=== PATIENT | male | born 1975 | race Caucasian/White ===

== ENCOUNTER 2016-03-03 18:04 | Inpatient (IN) | payer OTHER ==
[2016-03-03] MEDS ORDERED: ONDANSETRON 4 MG/2 ML VIAL IVP STA (19:46)
[2016-03-03] MEDS ORDERED: SODIUM CHLORIDE 0.9% 500 ML IV STA (19:46)
[2016-03-03] MEDS ORDERED: PANTOPRAZOLE 40 MG/10 ML VIAL IVP STA (19:46)
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
[2016-03-03 20:10] LABS: Basophils % (A) 1 %; CHCM 33.8; Eosinophils # (A) 0.1 k/uL (0-0.7); Eosinophils % (A) 4 %; HCT 42.7 % (39.0-53.0); HDW 2.34; HGB 14.1 gm/dL (13.0-17.5); Luc # (Auto) 0.08; Luc % (Auto) 2; Lymphocytes # (A) 1.9 k/uL (1.0-4.8); Lymphocytes % (A) 58 %; MCH 33.4 pg (25.0-35.0); MCHC 33.1 g/dL (31.0-37.0); MCV 100.9 fL (80.0-100.0); Mean Platelet Volume 7.9; Monocytes # (A) 0.2 k/uL (0-1.0); Monocytes % (A) 6 %; Neutrophils % (A) 29 %; RBC 4.23 m/uL (4.30-5.90); RDW 13.3 % (11.5-15.5); WBC 3.3 k/uL (3.8-10.6); WBC (Perox) 3.29
[2016-03-03 20:15] LABS: ALT 221 U/L (21-72); AST 274 U/L (17-59); Alkaline Phosphatase 130 U/L (38-126); Amylase 99 U/L (30-110); Anion Gap 17 mmol/L; Blood Urea Nitrogen <2 mg/dL (9-20); Calcium 8.4 mg/dL (8.4-10.2); Carbon Dioxide 27 mmol/L (22-30); Chloride 105 mmol/L (98-107); Glucose 97 mg/dL (74-99); Non-African American GFR(MDRD) >60 (>60 ml/min/1.73 sqM); Partial Thromboplastin Time 25.6 sec (22.0-30.0); Potassium 3.8 mmol/L (3.5-5.1); Prothrombin Time 9.9 sec (9.0-12.0); Sodium 149 mmol/L (137-145); Total Bilirubin 0.6 mg/dL (0.2-1.3); Total Protein 7.2 g/dL (6.3-8.2)
[2016-03-03] MEDS ORDERED: METOCLOPRAMIDE 5 MG/ML 2 ML VIAL IVP STA (20:18)
[2016-03-03 20:27] LABS: Alcohol 489 mg/dL
[2016-03-03 20:29] LABS: Creatine Kinase 102 U/L (55-170)
--- NOTE | 2016-03-03 20:29 | XR ---
EXAMINATION TYPE: XR KUB DATE OF EXAM: 03/03/2016 8:03 PM COMPARISON: NONE INDICATION: Abdomen pain TECHNIQUE: Single view abdomen upright view FINDINGS: No suspicious air-fluid levels or differential air-fluid levels are present. Psoas margins are normal. No organomegaly is present. No free air is under the diaphragm. Some nonspecific small bowel gas is present IMPRESSION: 1. Nonspecific abdomen.
--- NOTE | 2016-03-03 20:30 | XR ---
EXAMINATION TYPE: XR chest 2V DATE OF EXAM: 03/03/2016 8:03 PM COMPARISON: 11/14/2015 INDICATION: Abdomen pain, chest pressure TECHNIQUE: Frontal and lateral views of the chest are obtained. FINDINGS: The heart size is normal. The pulmonary vasculature is normal. The lungs are clear. There is hyperinflation. IMPRESSION: 1. Correlate for COPD.
[2016-03-03 20:41] LABS: Creatine Kinase MB 0.4 ng/mL (0.0-2.4); Troponin I <0.012 ng/mL (0.000-0.034)
[2016-03-03] MEDS ORDERED: NALOXONE 0.4 MG/ML 1 ML VIAL IV PRN (21:23)
[2016-03-03] MEDS ORDERED: ONDANSETRON 4 MG/2 ML VIAL IVP PRN (21:23)
[2016-03-03] MEDS ORDERED: THIAMINE 100 MG/ML 2 ML VIAL IM STA (21:26)
[2016-03-03] MEDS ORDERED: LORazepam 2 MG/ML SYRINGE IV PRN ×2 (21:26)
[2016-03-03] MEDS: THIAMINE 100 MG TAB PO SCH (21:41)
[2016-03-03] MEDS: HYDROmorphone 1 MG/ML 1 ML SYRINGE IV PRN (22:06)
[2016-03-04] MEDS: LORazepam 2 MG/ML SYRINGE IV PRN ×7 (00:32→21:47)
[2016-03-04] MEDS: HYDROmorphone 1 MG/ML 1 ML SYRINGE IV PRN ×6 (01:50→21:52)
[2016-03-04 02:17] VITALS: BMI 18.2
[2016-03-04] MEDS: SODIUM CHLORIDE 0.9% 1,000 ML IV SCH ×2 (03:27→18:07)
[2016-03-04 07:46] LABS: Amylase 51 U/L (30-110)
[2016-03-04] MEDS: DIAZEPAM 5 MG TAB PO SCH ×4 (07:51→21:48)
[2016-03-04] MEDS: PANTOPRAZOLE 40 MG/10 ML VIAL IV SCH (09:38)
[2016-03-04] MEDS: THIAMINE 100 MG TAB PO SCH ×2 (12:27→16:30)
[2016-03-04] MEDS: MULTIVITAMINS, THERA 1 EACH TAB PO SCH (12:28)
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
[2016-03-04] MEDS: METOPROLOL TARTRATE 12.5 MG TAB PO SCH ×2 (16:40→22:52)
[2016-03-04] MEDS: NICOTINE 21MG/24HR PATCH TRANSDERM SCH (16:40)
[2016-03-04 21:46] LABS: Appearance,Urine Clear (Clear); Bilirubin,Urine Negative (Negative); Glucose,Urine (UA) Negative (Negative); Ketones,Urine Negative (Negative); Leukocyte Esterase,Urine Negative (Negative); Nitrite,Urine Negative (Negative); Protein,Urine Negative (Negative); Specific Gravity,Urine 1.006 (1.001-1.035); UA Billing (MACRO vs. MICRO) CHEM; Urobilinogen,Urine <2.0 mg/dL (<2.0)
[2016-03-05] MEDS: LORazepam 2 MG/ML SYRINGE IV PRN ×3 (00:19→07:36)
[2016-03-05] MEDS: HYDROmorphone 1 MG/ML 1 ML SYRINGE IV PRN ×2 (01:28→04:58)
[2016-03-05] MEDS: DIAZEPAM 5 MG TAB PO SCH ×3 (03:12→17:46)
[2016-03-05] MEDS: SODIUM CHLORIDE 0.9% 1,000 ML IV SCH ×2 (04:57→17:47)
[2016-03-05] MEDS: NICOTINE 21MG/24HR PATCH TRANSDERM SCH (07:29)
[2016-03-05] MEDS: METOPROLOL TARTRATE 12.5 MG TAB PO SCH ×2 (07:30→17:47)
[2016-03-05 08:37] VITALS: BP 133/81; PULSE 77; RESP 16; TEMP 98
[2016-03-05] MEDS: MULTIVITAMINS, THERA 1 EACH TAB PO SCH (13:49)
[2016-03-05] MEDS: THIAMINE 100 MG TAB PO SCH (13:49)
[2016-03-05] MEDS: PANTOPRAZOLE 40 MG/10 ML VIAL IV SCH (13:55)
--- NOTE | 2016-03-06 21:44 | DS ---
DATE OF ADMISSION: 03/03/2016 DATE OF DISCHARGE: 03/05/2016 FINAL DIAGNOSES: 1. Acute pancreatitis secondary to alcoholism. 2. Chronic alcohol dependence. 3. Acute alcoholic intoxication on presentation. 4. Early alcohol withdrawal. 5. Alcoholic hepatitis. 6. Severe protein-calorie malnutrition from reduced muscle mass, decreased BUN; BMI of 18.2 from decreased oral intake. 7. Thrombocytopenia from chronic liver disease and alcoholism. 8. Leukopenia, probably from bone marrow suppression from chronic alcoholism. 9. Chronic nicotine dependence. Patient is a cigarette smoker. HOSPITAL COURSE: This patient who drinks quite a bit presented with acute alcoholic pancreatitis. Numbers had come down at the time of discharge. Patient started to eat. Patient does not eat too well. Today I discussed at length with him and his girlfriend about cessation of smoking and alcohol cessation. Patient will be sent home on a tapering dose of Valium, while he should seek help for himself. He will be helped by his girlfriend to that extent. On examination, abdomen is soft, nontender. LUNGS: Fair air entry. Patient is able to walk unassisted in the presence of his girlfriend. DISCHARGE MEDICATIONS: 1. Ativan 0.5 mg p.o. b.i.d. to be started when Valium course is done. 2. Valium taper as directed. 3. Disulfiram 500 mg a day for 7 days, then 250 mg a day. 4. Lopressor 12.5 b.i.d. for 10 tablets. 5. Multivitamin 1 tablet daily. 6. Nicotine 20 mg patch. 7. Thiamine 100 mg p.o. b.i.d. Patient will eat a 2200-calorie diet. Follow up with Dr. Gdooy in one week. CMP in one week. Discharge planning, including discussion, more than 35 minutes.
== END 2016-03-05 17:37 | disposition home or self-care (01) | DRG 438 ==
LOC: EC 18:04 → 5MS5E 21:23
PROVIDERS: ADMIT Hospitalist; ATTEND Hospitalist
DX: K85.20 Alcohol induced acute pancreatitis without necrosis or infection (principal); E43 Unspecified severe protein-calorie malnutrition; F10.231 Alcohol dependence with withdrawal delirium; D69.59 Other secondary thrombocytopenia; K70.10 Alcoholic hepatitis without ascites; Z68.1 Body mass index [BMI] 19.9 or less, adult; D72.819 Decreased white blood cell count, unspecified; F17.210 Nicotine dependence, cigarettes, uncomplicated; I10 Essential (primary) hypertension; M19.90 Unspecified osteoarthritis, unspecified site; Z82.49 Family history of ischemic heart disease and other diseases of the circulatory system; Z88.5 Allergy status to narcotic agent
CPT/HCPCS: 36415; 71020; 74000; 80053; 80320; 81003; 82150; 82550; 82553; 83690; 84484; 85025; 85610; 85730; 93005; 96361; 96372; 96374; 96375; 96376; 99285

== ENCOUNTER 2016-08-04 17:56 | Emergency (ER) | payer OTHER ==
[2016-08-04] MEDS ORDERED: SODIUM CHLORIDE 0.9% 1,000 ML IV STA (18:15)
[2016-08-04] MEDS ORDERED: HYDROmorphone 1 MG/ML 1 ML SYRINGE IVP STA (18:44)
[2016-08-04] MEDS ORDERED: ONDANSETRON 4 MG/2 ML VIAL IVP STA (18:44)
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
--- NOTE | 2016-08-04 19:13 | XR ---
EXAMINATION TYPE: XR KUB DATE OF EXAM: 08/04/2016 COMPARISON: 03/03/2016 HISTORY: Pain TECHNIQUE: 2 views FINDINGS: Bowel gas pattern is normal. There is no sign of intestinal obstruction or pneumoperitoneum . There are no pathologic calcifications. Lung bases are clear. Bony structures appear normal. There is no sign of a mass. IMPRESSION: Nonacute abdomen. No change.
[2016-08-04 19:18] LABS: Basophils # (A) 0.1 k/uL (0-0.2); Basophils % (A) 1 %; CH 32.4; CHCM 34.6; Eosinophils # (A) 0.1 k/uL (0-0.7); Eosinophils % (A) 2 %; HCT 43.4 % (39.0-53.0); HDW 2.46; HGB 14.6 gm/dL (13.0-17.5); Luc # (Auto) 0.15; Luc % (Auto) 3; Lymphocytes % (A) 50 %; MCH 31.6 pg (25.0-35.0); MCHC 33.5 g/dL (31.0-37.0); MCV 94.2 fL (80.0-100.0); Monocytes # (A) 0.2 k/uL (0-1.0); Monocytes % (A) 3 %; Neutrophils # (A) 2.5 k/uL (1.3-7.7); Neutrophils % (A) 42 %; RBC 4.61 m/uL (4.30-5.90); RDW 13.2 % (11.5-15.5); WBC 5.9 k/uL (3.8-10.6); WBC (Perox) 5.77
[2016-08-04 19:32] LABS: ALT 24 U/L (21-72); AST 25 U/L (17-59); Alkaline Phosphatase 78 U/L (38-126); Amylase 58 U/L (30-110); Anion Gap 13 mmol/L; Blood Urea Nitrogen 7 mg/dL (9-20); Calcium 8.7 mg/dL (8.4-10.2); Carbon Dioxide 24 mmol/L (22-30); Chloride 110 mmol/L (98-107); Glucose 85 mg/dL (74-99); Non-African American GFR(MDRD) >60 (>60 ml/min/1.73 sqM); Sodium 147 mmol/L (137-145); Total Bilirubin 0.4 mg/dL (0.2-1.3); Total Protein 6.9 g/dL (6.3-8.2)
[2016-08-04 19:45] LABS: Potassium 4.1 mmol/L (3.5-5.1)
[2016-08-04 19:47] LABS: Alcohol 264 mg/dL
[2016-08-04] MEDS ORDERED: KETOROLAC 30 MG/ML 1 ML VIAL IVP STA (19:51)
[2016-08-04 20:03] VITALS: BP 115/68; PULSE 82; RESP 18
[2016-08-04 20:06] LABS: Appearance,Urine Clear (Clear); Bilirubin,Urine Negative (Negative); Glucose,Urine (UA) Negative (Negative); Ketones,Urine Negative (Negative); Leukocyte Esterase,Urine Negative (Negative); Nitrite,Urine Negative (Negative); Protein,Urine Negative (Negative); Specific Gravity,Urine 1.001 (1.001-1.035); UA Billing (MACRO vs. MICRO) CHEM; Urobilinogen,Urine <2.0 mg/dL (<2.0)
[2016-08-04 20:39] VITALS: TEMP 98
== END 2016-08-04 20:15 | disposition home or self-care (01) ==
LOC: EC 17:56
DX: R10.9 Unspecified abdominal pain (principal); R11.2 Nausea with vomiting, unspecified; F17.200 Nicotine dependence, unspecified, uncomplicated; Z88.5 Allergy status to narcotic agent; Z88.6 Allergy status to analgesic agent; Z79.899 Other long term (current) drug therapy
CPT/HCPCS: 99284; 96374; 96375 ×2; 96361; 36415; 80053; 82150; 83690; 85025; 81003; 80320; 74000; J2405; J1885; J1170

== ENCOUNTER 2016-08-10 15:54 | Emergency (ER) | payer OTHER ==
[2016-08-10 16:00] VITALS: RESP 16
[2016-08-10] MEDS ORDERED: SODIUM CHLORIDE 0.9% 2,000 ML IV STA (16:32)
[2016-08-10] MEDS ORDERED: KETOROLAC 30 MG/ML 1 ML VIAL IVP STA (16:32)
[2016-08-10] MEDS ORDERED: ONDANSETRON 4 MG/2 ML VIAL IVP STA (16:32)
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
[2016-08-10 16:50] LABS: Appearance,Urine Clear (Clear); Bilirubin,Urine Negative (Negative); Glucose,Urine (UA) Negative (Negative); Ketones,Urine Negative (Negative); Leukocyte Esterase,Urine Negative (Negative); Nitrite,Urine Negative (Negative); Protein,Urine Negative (Negative); Specific Gravity,Urine 1.003 (1.001-1.035); UA Billing (MACRO vs. MICRO) CHEM; Urobilinogen,Urine <2.0 mg/dL (<2.0)
[2016-08-10 16:52] LABS: Basophils % (A) 1 %; CH 31.4; CHCM 34.1; Eosinophils % (A) 0 %; HCT 44.4 % (39.0-53.0); HDW 2.34; HGB 15.6 gm/dL (13.0-17.5); Luc # (Auto) 0.13; Luc % (Auto) 2; Lymphocytes % (A) 38 %; MCH 32.6 pg (25.0-35.0); MCHC 35.2 g/dL (31.0-37.0); MCV 92.6 fL (80.0-100.0); Mean Platelet Volume 6.7; Monocytes # (A) 0.3 k/uL (0-1.0); Monocytes % (A) 6 %; Neutrophils # (A) 2.9 k/uL (1.3-7.7); Neutrophils % (A) 53 %; RBC 4.79 m/uL (4.30-5.90); WBC 5.4 k/uL (3.8-10.6)
--- NOTE | 2016-08-10 17:00 | XR ---
EXAMINATION TYPE: XR KUB DATE OF EXAM: 08/10/2016 COMPARISON: 08/04/2016 INDICATION: Abdomen pain TECHNIQUE: Single view abdomen upright view FINDINGS: There is a nonspecific bowel gas pattern with air within small bowel loops within the midabdomen with some colonic bowel gas present. Psoas margins are normal. No organomegaly is present. IMPRESSION: 1. Nonspecific abdomen.
[2016-08-10 17:05] LABS: ALT 61 U/L (21-72); AST 75 U/L (17-59); Alkaline Phosphatase 110 U/L (38-126); Amylase 49 U/L (30-110); Anion Gap 18 mmol/L; Blood Urea Nitrogen 8 mg/dL (9-20); Calcium 8.9 mg/dL (8.4-10.2); Carbon Dioxide 24 mmol/L (22-30); Chloride 103 mmol/L (98-107); Glucose 150 mg/dL (74-99); Non-African American GFR(MDRD) >60 (>60 ml/min/1.73 sqM); Sodium 145 mmol/L (137-145); Total Bilirubin 0.4 mg/dL (0.2-1.3)
[2016-08-10] MEDS ORDERED: MAG HYDROX/AL HYDROX/SIMETH 30 ML, HYOSCYAMINE ELIXIR 10 ML, CIMETIDINE HCL 300 MG, LID... PO STA ×4 (17:11)
[2016-08-10 21:58] VITALS: BP 115/67; PULSE 62; TEMP 98.7
== END 2016-08-10 21:58 | disposition home or self-care (01) ==
LOC: EC 15:54
DX: K29.20 Alcoholic gastritis without bleeding (principal); R11.0 Nausea; F17.200 Nicotine dependence, unspecified, uncomplicated; Z88.5 Allergy status to narcotic agent; Z88.6 Allergy status to analgesic agent; Z87.19 Personal history of other diseases of the digestive system
CPT/HCPCS: 99285; 96374; 96375; 96361 ×2; 82075; 36415; 80053; 82150; 83690; 85025; 81003; 74000; J2405; J1885

== ENCOUNTER 2016-08-11 21:19 | Emergency (ER) | payer OTHER ==
[2016-08-11 21:29] VITALS: RESP 18
[2016-08-11] MEDS ORDERED: MAG HYDROX/AL HYDROX/SIMETH 30 ML, HYOSCYAMINE ELIXIR 10 ML, CIMETIDINE HCL 300 MG PO STA ×3 (21:45)
[2016-08-11] MEDS ORDERED: HYDROmorphone 2 MG/ML 1 ML SYRINGE IM STA (21:45)
[2016-08-11] MEDS ORDERED: ONDANSETRON ODT 4 MG TAB PO STA (21:45)
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
[2016-08-11 22:48] VITALS: BP 136/76; PULSE 76; TEMP 97.2
== END 2016-08-11 22:46 | disposition home or self-care (01) ==
LOC: EC 21:19
DX: R10.13 Epigastric pain (principal); R11.0 Nausea; R19.7 Diarrhea, unspecified; F17.200 Nicotine dependence, unspecified, uncomplicated; Z88.5 Allergy status to narcotic agent; Z88.6 Allergy status to analgesic agent
CPT/HCPCS: 99284; 96372; J1170

== ENCOUNTER 2016-09-24 12:25 | Emergency (ER) | payer OTHER ==
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
[2016-09-24 14:34] VITALS: BP 132/69; PULSE 79; RESP 18; TEMP 97.7
== END 2016-09-24 14:33 | disposition home or self-care (01) ==
LOC: EC 12:25
DX: F41.9 Anxiety disorder, unspecified (principal); R07.9 Chest pain, unspecified; F17.200 Nicotine dependence, unspecified, uncomplicated; Z88.5 Allergy status to narcotic agent; Z88.6 Allergy status to analgesic agent
CPT/HCPCS: 93005; 99283

== ENCOUNTER 2016-09-26 09:45 | Inpatient (IN) | payer MEDICAID, OTHER ==
[2016-09-26] MEDS ORDERED: LORazepam 1 MG TAB PO STA ×2 (10:16→14:53)
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
[2016-09-27] MEDS ORDERED: MAGNESIUM HYDROXIDE 2,400 MG/10 ML CUP PO PRN (01:22)
[2016-09-27] MEDS ORDERED: MAG HYDROX/AL HYDROX/SIMETH 30 ML CUP PO PRN (01:22)
[2016-09-27] MEDS ORDERED: ACETAMINOPHEN TAB 325 MG TAB PO PRN (01:22)
[2016-09-27 09:05] LABS: Basophils % (A) 1 %; CH 32.2; CHCM 33.6; Eosinophils % (A) 1 %; HCT 50.1 % (39.0-53.0); HDW 2.36; HGB 16.8 gm/dL (13.0-17.5); Luc # (Auto) 0.06; Luc % (Auto) 1; Lymphocytes # (A) 1.1 k/uL (1.0-4.8); Lymphocytes % (A) 23 %; MCH 32.3 pg (25.0-35.0); MCHC 33.6 g/dL (31.0-37.0); MCV 96.2 fL (80.0-100.0); Mean Platelet Volume 6.9; Monocytes # (A) 0.3 k/uL (0-1.0); Monocytes % (A) 5 %; Neutrophils # (A) 3.1 k/uL (1.3-7.7); Neutrophils % (A) 68 %; RBC 5.21 m/uL (4.30-5.90); RDW 13.7 % (11.5-15.5); WBC 4.6 k/uL (3.8-10.6); WBC (Perox) 4.72
[2016-09-27] MEDS: NICOTINE 14MG/24HR PATCH TRANSDERM SCH (09:26)
[2016-09-27] MEDS: LORazepam 1 MG TAB PO PRN ×2 (09:27→16:20)
[2016-09-27 10:03] LABS: ALT 44 U/L (21-72); AST 47 U/L (17-59); Alkaline Phosphatase 104 U/L (38-126); Anion Gap 9 mmol/L; Blood Urea Nitrogen 7 mg/dL (9-20); Calcium 9.7 mg/dL (8.4-10.2); Carbon Dioxide 26 mmol/L (22-30); Chloride 104 mmol/L (98-107); Glucose 82 mg/dL (74-99); Non-African American GFR(MDRD) >60 (>60 ml/min/1.73 sqM); Potassium 4.3 mmol/L (3.5-5.1); Sodium 139 mmol/L (137-145); Total Bilirubin 2.3 mg/dL (0.2-1.3); Total Protein 6.9 g/dL (6.3-8.2)
[2016-09-27] MEDS ORDERED: cloNIDine HCL 0.1 MG TAB PO PRN (14:53)
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
[2016-09-27 15:29] VITALS: BMI 18.2
[2016-09-27] MEDS ORDERED: OLANZapine 5 MG TAB PO STA (19:47)
[2016-09-27] MEDS: FLUoxetine HCL 20 MG CAP PO SCH (22:52)
[2016-09-27] MEDS: traZODone HCL 100 MG TAB PO SCH (22:52)
[2016-09-27] MEDS: OLANZapine 5 MG TAB PO SCH (22:52)
[2016-09-28] MEDS: OLANZapine 5 MG TAB PO SCH ×3 (09:44→21:33)
[2016-09-28] MEDS: NICOTINE 14MG/24HR PATCH TRANSDERM SCH (09:44)
[2016-09-28] MEDS: FLUoxetine HCL 20 MG CAP PO SCH (09:44)
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
--- NOTE | 2016-09-28 16:32 | PN ---
DATE OF SERVICE: 09/28/2016 CHIEF COMPLAINT: The patient was depressed and suicidal. He had thoughts of jumping into a river trying to hit his head on a rock to kill himself. He has had senior care problems with depression. He had five months sober and relapsed into drinking on the day of admission. INTERVAL HISTORY: The patient has been doing fair. He had a quiet evening last night. He slept fairly well today. He has mostly been in his room. He does not come out much. He does not interact with others. He has not made an effort to get to groups. He feels that his medications have been somewhat helpful. He says he feels a little calmer. He has not had change in his general health. He tolerates his psychotropic medications. MENTAL STATUS: Patient was in his room lying down. He gave fair eye contact. Psychomotor activity was slow. Speech was monotone. He answered questions with brief responses. His thoughts were clear. His affect flat. His mood reserved. He did not appear to be significantly distressed. ASSESSMENT: I will continue the current diagnosis and treatment plan. I will continue psychotropic medications the same save for a reduction in Ativan. He currently is on 1 mg t.i.d. I will reduce his Ativan to 0.5 mg b.i.d. p.r.n. Will continue to focus on stabilization and discharge planning. The patient will be strongly encouraged to get engaged in groups and other therapeutic activities. JACLYN
[2016-09-28] MEDS: HYDROcodone/APAP 5-325MG 1 EACH TAB PO SCH ×2 (16:52→21:32)
[2016-09-28] MEDS ORDERED: LORazepam 0.5 MG TAB PO SCH (21:00)
[2016-09-28] MEDS: traZODone HCL 100 MG TAB PO SCH (21:33)
[2016-09-29] MEDS: NICOTINE 14MG/24HR PATCH TRANSDERM SCH (09:44)
[2016-09-29] MEDS: HYDROcodone/APAP 5-325MG 1 EACH TAB PO SCH ×3 (09:44→20:44)
[2016-09-29] MEDS: FLUoxetine HCL 20 MG CAP PO SCH (09:45)
[2016-09-29] MEDS: OLANZapine 5 MG TAB PO SCH ×3 (09:45→20:44)
--- NOTE | 2016-09-29 12:55 | P.PN ---
Progress Note - Text Interval history: Seen in cross coverage today for Dr. Miller. He reports that he didn't sleep that great last night but better than he was before and states his appetite is getting better. He is currently on Prozac and Zyprexa which he started a couple of days ago. He seems to be tolerating these medications well overall. He does describe a lot of anxiety and he was admitted also with depression and concern of thoughts of suicide. Mental status exam: He is alert and cooperative with the interview. His speech is fluent, not rapid or pressured. Thought processes are organized. His mood overall seems to be improved although he states it still could be better. He denies any current thoughts of harm to self or others. He denies any hallucinations. He does not show any active evidence of psychosis or agitation. Plan: We will be maintained on current psychotropic medication regimen. We'll monitor for any medication side effects. Continue to monitor his response. We' ll continue to cover this patient for Dr. Miller through the weekend.
[2016-09-29] MEDS: traZODone HCL 100 MG TAB PO SCH (20:44)
[2016-09-30] MEDS: OLANZapine 5 MG TAB PO SCH ×3 (08:48→20:34)
[2016-09-30] MEDS: NICOTINE 14MG/24HR PATCH TRANSDERM SCH (08:48)
[2016-09-30] MEDS: FLUoxetine HCL 20 MG CAP PO SCH (08:48)
[2016-09-30] MEDS: HYDROcodone/APAP 5-325MG 1 EACH TAB PO SCH ×3 (08:49→20:33)
--- NOTE | 2016-09-30 18:08 | P.PN ---
Progress Note - Text Interval history: Patient reports that he didn't get much sleep last night. He states that his mood is doing better but his anxiety levels about the same. He seems to be tolerating the psychotropic medications well. He is seen in cross coverage today for Dr. Miller. Mental status exam: He is alert and cooperative with the interview. His mood he describes is doing better, his anxiety level is the same. He denies any thoughts of harm to self or others. He does not verbalize any hallucinations or delusional thoughts. He does not show any agitation. His affect overall is restricted. Plan: Patient will be maintained on current psychotropic medication regimen. He is encouraged regarding the medications continuing to work better for him. He will be monitored regarding any medication side effects and ongoing response. Dr. Miller resume care this patient starting tomorrow.
[2016-09-30] MEDS: LORazepam 1 MG TAB PO PRN (20:34)
[2016-09-30] MEDS: traZODone HCL 100 MG TAB PO SCH (20:34)
[2016-10-01 06:50] VITALS: RESP 18
[2016-10-01] MEDS: FLUoxetine HCL 20 MG CAP PO SCH (09:36)
[2016-10-01] MEDS: OLANZapine 5 MG TAB PO SCH ×3 (09:36→21:14)
[2016-10-01] MEDS: NICOTINE 14MG/24HR PATCH TRANSDERM SCH (09:36)
[2016-10-01] MEDS: HYDROcodone/APAP 5-325MG 1 EACH TAB PO SCH ×3 (09:38→21:14)
[2016-10-01] MEDS: LORazepam 1 MG TAB PO PRN ×2 (09:38→22:09)
[2016-10-01] MEDS: traZODone HCL 100 MG TAB PO SCH (21:14)
[2016-10-02 03:48] VITALS: BP 114/66; PULSE 97; TEMP 97.6
[2016-10-02] MEDS: OLANZapine 5 MG TAB PO SCH (09:36)
[2016-10-02] MEDS: NICOTINE 14MG/24HR PATCH TRANSDERM SCH (09:36)
[2016-10-02] MEDS: FLUoxetine HCL 20 MG CAP PO SCH (09:36)
[2016-10-02] MEDS: LORazepam 1 MG TAB PO PRN (09:36)
[2016-10-02] MEDS: HYDROcodone/APAP 5-325MG 1 EACH TAB PO SCH (09:37)
--- NOTE | 2016-10-02 18:32 | PN ---
DATE OF SERVICE: 10/01/2016 CHIEF COMPLAINT: The patient was depressed and suicidal. He had thoughts of jumping into a river, tried to hit his head on a rock to kill himself. He has had long-term problems with depression. He had 5 months sober and relapsed into drinking on the day of admission. INTERVAL HISTORY: The patient has been doing fair. He said he sees slow progress. He has not been sleeping too well, though says overall he is sleeping better than he had been. He had a little bit better sleep last night than the night before. He says his mood is improving. He continues with anxiety, acknowledges that he is facing stress issues which include being homeless. He has been talking with his girlfriend. He says he does not want to move in with her until he has got a job, so that would be one of his top priorities upon discharge. He recognizes that he is at risk for relapse to substance use and understands that that needs to be a focus of his followup. He feels that the medications have been helping. He has not had change in his general health. He tolerates his psychotropic medications. MENTAL STATUS: Patient gave good eye contact. Psychomotor activity was a little restless. Speech was clear. He answered questions with brief responses. He was not too spontaneous, though he was somewhat interactive. His affect was blunted , his mood reserved. He did not appear to be significantly distressed. ASSESSMENT: I will continue the current diagnosis and treatment plan. I will continue psychotropic medications as same. Patient has been making progress. He was able to discuss issues related to discharge planning. The patient feels that he is nearing readiness for discharge. I would look to discharge the patient tomorrow. We will coordinate with outpatient resources for followup. JACLYN
== END 2016-10-02 13:34 | disposition home or self-care (01) | DRG 885 ==
LOC: EC 09:45 → 3MHU 09-27 00:21
PROVIDERS: ADMIT Psychiatry & Neurology Psychiatry; ATTEND Psychiatry & Neurology Psychiatry
DX: F33.2 Major depressive disorder, recurrent severe without psychotic features (principal); K86.1 Other chronic pancreatitis; G62.9 Polyneuropathy, unspecified; F10.20 Alcohol dependence, uncomplicated; F41.0 Panic disorder [episodic paroxysmal anxiety]; F43.10 Post-traumatic stress disorder, unspecified; G47.9 Sleep disorder, unspecified; M19.91 Primary osteoarthritis, unspecified site; I10 Essential (primary) hypertension; F17.200 Nicotine dependence, unspecified, uncomplicated; G43.909 Migraine, unspecified, not intractable, without status migrainosus; Z79.899 Other long term (current) drug therapy; Z59.0 Homelessness
CPT/HCPCS: 80053; 80306; 82075; 84443; 85025; 99285

== ENCOUNTER 2016-10-10 18:54 | Emergency (ER) | payer OTHER ==
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
[2016-10-10 19:01] VITALS: RESP 18
[2016-10-11 06:51] VITALS: BP 147/78; PULSE 76; TEMP 98.1
--- NOTE | 2016-10-12 11:28 | CONS ---
CONSULTATION Date of Consultation: DATE OF SERVICE: 10/11/2016. PURPOSE OF CONSULTATION: Evaluate for risk of self harm. HISTORY OF PRESENTING ILLNESS: The patient is a 40-year-old male, who presented to the emergency room with complaint of depression with suicide thoughts. He had been drinking alcohol all day and states that he had been very depressed. He had thoughts of harming himself. It is noted the patient had a psychiatric admission in this facility from 09/27-10/02/2016. Discharge diagnoses included major depression, chronic and recurrent severe with acute exacerbation without psychotic features; panic disorder; and posttraumatic stress disorder. He had suicide thoughts that led up to his hospitalization. During the course of his hospital stay he had a fairly good resolution of symptoms. He was felt to be stable with improved mood, reduced anxiety. He was not showing withdrawal signs from alcohol. He was in agreement with the followup plan to be discharged back to [facility] with [facility] on 10/04 at 2:00 p.m. Discharge medications included Prozac 20 mg a day, Zyprexa 5 mg 3 times a day, Trazodone 100 mg at bedtime, Ativan 0.5 mg twice a day with a plan to taper off and discontinue Ativan. The patient reports that after discharge he moved back with his girlfriend which was one of his plans. He said he was not going to move back with his girlfriend until he got a job. 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 He is to start on September 15. He says he is feels quite positive about that. In regards to his coming into the hospital, he said he got into an argument with his girlfriend. He acknowledges that drinking was likely a precipitant. He had made statements about self- harm including jumping [place] the [place]. He that he recognized that was said impulsively and that is not his intent. He acknowledged that drinking is a risk for him in terms of his mood and how he interacts with his significant other in particular. He states that he does not have any suicide thoughts or impulses at the time that I interviewed him. He states that he is quite positive about the job that he will be starting on Saturday. He says that he is motivated to get followup through [facility] and is in the process of making another appointment for intake. He reports that he has been stable on his medications. He feels that he has fairly good support from his girlfriend. He described a good understanding of community resources in regards to his efforts to stop drinking. MENTAL STATUS: Patient gave good eye contact. Psychomotor activity was a little slow. Speech was appropriate. He answered questions with direct responses. His affect was in a reasonable range. His mood was reserved. He had a somewhat worried manner though did not appear to be significantly distressed. ASSESSMENT AND PLAN: I will continue the current diagnosis and the treatment plan. I would continue psychotropic medications as he was discharged on from his recent hospitalization. He will follow up with [facility]. He is denying any thoughts of suicide or self harm. He has future orientation and has some appropriate goals for the near term including starting a job on Saturday. The patient does have an emergency telephone number through [facility] to call should he feel that he needs professional support. The patient is appropriate to be discharged to home. ROBERT / ISAIAH: [id number] /
== END 2016-10-11 13:26 | disposition home or self-care (01) ==
LOC: EC 18:54
DX: R45.851 Suicidal ideations (principal); F10.10 Alcohol abuse, uncomplicated; F32.9 Major depressive disorder, single episode, unspecified; F41.9 Anxiety disorder, unspecified; Z88.5 Allergy status to narcotic agent; Z88.6 Allergy status to analgesic agent; F17.200 Nicotine dependence, unspecified, uncomplicated
CPT/HCPCS: 80306; 82075; 99284

== ENCOUNTER 2017-08-27 12:56 | Emergency (ER) | payer OTHER ==
[2017-08-27 13:05] VITALS: RESP 18
[2017-08-27] MEDS ORDERED: KETOROLAC 60 MG/2 ML VIAL IM STA (13:55)
[2017-08-27] MEDS ORDERED: ORPHENADRINE 30 MG/ML 2 ML VIAL IM STA (13:55)
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
[2017-08-27 14:10] VITALS: BP 118/72; PULSE 66; TEMP 98.1
== END 2017-08-27 14:18 | disposition home or self-care (01) ==
LOC: EC 12:56
DX: S39.012A Strain of muscle, fascia and tendon of lower back, initial encounter (principal); F17.200 Nicotine dependence, unspecified, uncomplicated; Z88.5 Allergy status to narcotic agent; Z53.29 Procedure and treatment not carried out because of patient's decision for other reasons; X50.0XXA Overexertion from strenuous movement or load, initial encounter
CPT/HCPCS: 99283; 96372; J2360

== ENCOUNTER 2018-05-27 18:27 | Emergency (ER) | payer OTHER ==
[2018-05-27 18:53] VITALS: RESP 18; TEMP 98.6
[2018-05-27] MEDS ORDERED: SODIUM CHLORIDE 0.9% 1,000 ML IV STA (19:21)
[2018-05-27] MEDS ORDERED: METOCLOPRAMIDE 5 MG/ML 2 ML VIAL IVP STA (19:46)
[2018-05-27] MEDS ORDERED: diphenhydrAMINE 50 MG/ML 1 ML VIAL IVP STA (19:46)
[2018-05-27 19:47] LABS: Basophils # (A) 0.1 k/uL (0-0.2); Basophils % (A) 1 %; Eosinophils # (A) 0.1 k/uL (0-0.7); Eosinophils % (A) 2 %; HCT 47.9 % (39.0-53.0); HGB 15.6 gm/dL (13.0-17.5); Lymphocytes # (A) 1.9 k/uL (1.0-4.8); Lymphocytes % (A) 49 %; MCHC 32.5 g/dL (31.0-37.0); MCV 101.4 fL (80.0-100.0); Mean Platelet Volume 7.4; Monocytes # (A) 0.2 k/uL (0-1.0); Monocytes % (A) 4 %; Neutrophils # (A) 1.5 k/uL (1.3-7.7); Neutrophils % (A) 40 %; Platelet Count 112 k/uL (150-450); RBC 4.73 m/uL (4.30-5.90); RDW 12.8 % (11.5-15.5); WBC 3.8 k/uL (3.8-10.6)
[2018-05-27 19:49] LABS: Appearance,Urine Clear (Clear); Bilirubin,Urine Negative (Negative); Blood,Urine Negative (Negative); Color,Urine Yellow; Glucose,Urine (UA) Negative (Negative); Ketones,Urine Negative (Negative); Leukocyte Esterase,Urine Negative (Negative); Nitrite,Urine Negative (Negative); Protein,Urine Negative (Negative); Specific Gravity,Urine 1.007 (1.001-1.035); Urobilinogen,Urine <2.0 mg/dL (<2.0)
[2018-05-27 19:58] LABS: ALT 199 U/L (21-72); AST 276 U/L (17-59); Albumin 4.6 g/dL (3.5-5.0); Alkaline Phosphatase 158 U/L (38-126); Amylase 81 U/L (30-110); Anion Gap 13 mmol/L; Blood Urea Nitrogen 2 mg/dL (9-20); Calcium 9.2 mg/dL (8.4-10.2); Carbon Dioxide 22 mmol/L (22-30); Chloride 109 mmol/L (98-107); Glucose 81 mg/dL (74-99); Lipase 428 U/L (23-300); Potassium 4.2 mmol/L (3.5-5.1); Sodium 144 mmol/L (137-145); Total Bilirubin 0.7 mg/dL (0.2-1.3); Total Protein 7.3 g/dL (6.3-8.2)
[2018-05-27 20:26] LABS: Alcohol 353 mg/dL
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
[2018-05-27 21:20] VITALS: BP 118/80; PULSE 62
== END 2018-05-27 21:19 | disposition home or self-care (01) ==
LOC: EC 18:27
DX: K70.10 Alcoholic hepatitis without ascites (principal); K85.90 Acute pancreatitis without necrosis or infection, unspecified; R74.0 Nonspecific elevation of levels of transaminase and lactic acid dehydrogenase [LDH]; R74.8 Abnormal levels of other serum enzymes; F10.129 Alcohol abuse with intoxication, unspecified; R19.7 Diarrhea, unspecified; M19.90 Unspecified osteoarthritis, unspecified site; F17.200 Nicotine dependence, unspecified, uncomplicated; Z88.5 Allergy status to narcotic agent; Z79.891 Long term (current) use of opiate analgesic; Y90.8 Blood alcohol level of 240 mg/100 ml or more; Z81.1 Family history of alcohol abuse and dependence
CPT/HCPCS: 99283; 96374; 96375; 96361; 36415; 80053; 82150; 83690; 85025; 81003; G0480; J1200; J2765; 80320

== ENCOUNTER 2018-06-12 16:08 | Emergency (ER) | payer OTHER ==
[2018-06-12 16:35] VITALS: BP 115/74; PULSE 61; RESP 20; TEMP 98.1
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
[2018-06-12] MEDS ORDERED: chlorproMAZINE 25 MG TAB PO STA (17:20)
== END 2018-06-12 17:49 | disposition home or self-care (01) ==
LOC: EC 16:08
DX: R06.6 Hiccough (principal); F32.9 Major depressive disorder, single episode, unspecified; F41.9 Anxiety disorder, unspecified; F17.200 Nicotine dependence, unspecified, uncomplicated; Z88.5 Allergy status to narcotic agent; Z88.6 Allergy status to analgesic agent; Z79.899 Other long term (current) drug therapy
CPT/HCPCS: 99283

== ENCOUNTER 2018-08-15 13:38 | Emergency (ER) | payer OTHER ==
[2018-08-15 13:58] VITALS: BP 96/69; PULSE 77; RESP 18; TEMP 98.8
[2018-08-15] MEDS ORDERED: IBUPROFEN 800 MG TAB PO STA (14:16)
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
== END 2018-08-15 14:40 | disposition home or self-care (01) ==
LOC: EC 13:38
DX: M54.5 Low back pain (principal); F41.9 Anxiety disorder, unspecified; F32.9 Major depressive disorder, single episode, unspecified; F17.200 Nicotine dependence, unspecified, uncomplicated; Z95.818 Presence of other cardiac implants and grafts; Z79.899 Other long term (current) drug therapy; Z88.5 Allergy status to narcotic agent; Z88.6 Allergy status to analgesic agent
CPT/HCPCS: 99283

== ENCOUNTER 2018-08-16 18:43 | Emergency (ER) | payer OTHER ==
[2018-08-16 18:52] VITALS: RESP 16; TEMP 97.9
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
[2018-08-16] MEDS ORDERED: SODIUM CHLORIDE 0.9% 1,000 ML IV STA (19:37)
[2018-08-16] MEDS ORDERED: HYDROmorphone 0.5 MG/0.5 ML SYRINGE IVP STA (19:38)
[2018-08-16 20:03] VITALS: BP 117/84; PULSE 79
[2018-08-16 20:09] LABS: Basophils # (A) 0.1 k/uL (0-0.2); Basophils % (A) 1 %; Eosinophils # (A) 0.1 k/uL (0-0.7); Eosinophils % (A) 1 %; HCT 44.2 % (39.0-53.0); HGB 14.6 gm/dL (13.0-17.5); Lymphocytes # (A) 2.7 k/uL (1.0-4.8); Lymphocytes % (A) 47 %; MCH 34.4 pg (25.0-35.0); MCHC 33.1 g/dL (31.0-37.0); Macrocytosis Slight; Mean Platelet Volume 6.9; Monocytes # (A) 0.2 k/uL (0-1.0); Monocytes % (A) 4 %; Neutrophils # (A) 2.6 k/uL (1.3-7.7); Neutrophils % (A) 45 %; Platelet Count 250 k/uL (150-450); RBC 4.25 m/uL (4.30-5.90); RDW 12.9 % (11.5-15.5); WBC 5.7 k/uL (3.8-10.6)
[2018-08-16 20:18] LABS: ALT 34 U/L (21-72); AST 57 U/L (17-59); African American GFR (CKD) >90 (>60 ml/min/1.73 sqM); Albumin 4.4 g/dL (3.5-5.0); Alkaline Phosphatase 113 U/L (38-126); Anion Gap 14 mmol/L; Blood Urea Nitrogen 3 mg/dL (9-20); Calcium 8.9 mg/dL (8.4-10.2); Carbon Dioxide 22 mmol/L (22-30); Chloride 113 mmol/L (98-107); Creatine Kinase 108 U/L (55-170); Glucose 104 mg/dL (74-99); Lipase 571 U/L (23-300); Potassium 4.2 mmol/L (3.5-5.1); Sodium 149 mmol/L (137-145); Total Bilirubin 0.3 mg/dL (0.2-1.3); Total Protein 7.1 g/dL (6.3-8.2)
[2018-08-16 20:28] LABS: Alcohol 478 mg/dL
--- NOTE | 2018-08-16 20:46 | CT ---
EXAMINATION TYPE: CT abdomen pelvis wo con DATE OF EXAM: 08/16/2018 COMPARISON: 02/21/2015 HISTORY: left flank pain CT DLP: 312 mGycm Automated exposure control for dose reduction was used. TECHNIQUE: Helical acquisition of images was performed from the lung bases through the pelvis. FINDINGS: Lung bases are clear. There is no pleural effusion. There is no pericardial effusion. Liver spleen pancreas gallbladder appear normal. Bile ducts are not dilated. There is no adrenal mass . Kidneys have normal size and contour. The bladder distends smoothly. There is mild fullness of the renal pelvis bilaterally. I see no definite ureteral calculus. There is no inguinal hernia. There is no free fluid in the pelvis. The appendix appears normal. There is no mesenteric edema. There is no ascites or free air. There is no sign of a bowel obstructio n. Urinary bladder is large and measures 12 cm in length. Lumbar spine is intact. Bony pelvis is inta ct. I see no bony destructive process. IMPRESSION: THERE IS EVIDENCE OF MILD ENLARGEMENT OF THE RENAL COLLECTING SYSTEMS BILATERALLY. NO STONE SEEN. THI S COULD RELATE TO BLADDER OUTLET OBSTRUCTION. URINARY BLADDER IS MILDLY ENLARGED. NORMAL APPENDIX.
== END 2018-08-16 21:03 | disposition home or self-care (01) ==
LOC: EC 18:43
DX: M54.9 Dorsalgia, unspecified (principal); F10.129 Alcohol abuse with intoxication, unspecified; F17.200 Nicotine dependence, unspecified, uncomplicated; Z88.5 Allergy status to narcotic agent; Z88.6 Allergy status to analgesic agent; Z95.818 Presence of other cardiac implants and grafts
CPT/HCPCS: 36415; 80053; 82550; 83690; 85025; 80320; 74176; 99284; 96374; 96361; J1170

== ENCOUNTER 2018-08-27 17:46 | Emergency (ER) | payer OTHER ==
[2018-08-27 17:59] VITALS: BP 109/74; PULSE 86; RESP 16; TEMP 98.4
== END 2018-08-27 19:14 | disposition left against medical advice (07) ==
LOC: EC 17:46
DX: M54.9 Dorsalgia, unspecified (principal); Z53.21 Procedure and treatment not carried out due to patient leaving prior to being seen by health care provider
CPT/HCPCS: 99499

== ENCOUNTER 2018-09-18 12:36 | Emergency (ER) | payer OTHER ==
[2018-09-18] MEDS ORDERED: SODIUM CHLORIDE 0.9% 500 ML 500 ML IV STA (13:14)
[2018-09-18] MEDS ORDERED: SODIUM CHLORIDE 0.9% 1,000 ML IV STA ×2 (13:14)
[2018-09-18] MEDS ORDERED: HYDROmorphone 0.5 MG/0.5 ML SYRINGE IVP STA (13:15)
[2018-09-18] MEDS ORDERED: HYDROmorphone 1 MG/ML 1 ML SYRINGE IVP STA (13:17)
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
[2018-09-18 13:37] LABS: Basophils # (A) 0.1 k/uL (0-0.2); Basophils % (A) 1 %; Eosinophils # (A) 0.1 k/uL (0-0.7); Eosinophils % (A) 1 %; HCT 46.8 % (39.0-53.0); HGB 15.5 gm/dL (13.0-17.5); Lymphocytes # (A) 1.9 k/uL (1.0-4.8); Lymphocytes % (A) 31 %; MCH 34.8 pg (25.0-35.0); MCHC 33.2 g/dL (31.0-37.0); MCV 104.8 fL (80.0-100.0); Macrocytosis Slight; Mean Platelet Volume 7.2; Monocytes # (A) 0.4 k/uL (0-1.0); Monocytes % (A) 6 %; Neutrophils # (A) 3.8 k/uL (1.3-7.7); Neutrophils % (A) 61 %; Platelet Count 163 k/uL (150-450); RBC 4.46 m/uL (4.30-5.90); RDW 12.7 % (11.5-15.5); WBC 6.3 k/uL (3.8-10.6)
[2018-09-18 13:44] LABS: INR 0.9 (<1.2); Partial Thromboplastin Time 24.6 sec (22.0-30.0); Prothrombin Time 9.9 sec (9.0-12.0)
[2018-09-18 13:45] LABS: ALT 66 U/L (21-72); AST 112 U/L (17-59); African American GFR (CKD) >90 (>60 ml/min/1.73 sqM); Albumin 4.5 g/dL (3.5-5.0); Alkaline Phosphatase 105 U/L (38-126); Anion Gap 11 mmol/L; Blood Urea Nitrogen 5 mg/dL (9-20); Carbon Dioxide 25 mmol/L (22-30); Chloride 111 mmol/L (98-107); Creatine Kinase 335 U/L (55-170); Glucose 82 mg/dL (74-99); Potassium 4.1 mmol/L (3.5-5.1); Sodium 147 mmol/L (137-145); Total Bilirubin 0.6 mg/dL (0.2-1.3); Total Protein 7.4 g/dL (6.3-8.2)
[2018-09-18 13:57] LABS: Alcohol 433 mg/dL
--- NOTE | 2018-09-18 14:21 | XR ---
EXAMINATION TYPE: XR chest 2V DATE OF EXAM: 09/18/2018 COMPARISON: Chest x-ray July 26, 2018. HISTORY: Chest pain and shortness of breath. TECHNIQUE: Frontal and lateral views of the chest are obtained. FINDINGS: Overlying EKG leads are present. There is no focal air space opacity, pleural effusion, or pneumothorax seen. The cardiac silhouette size is within normal limits. Spine is straightened on la teral view. IMPRESSION: No acute cardiopulmonary process.
[2018-09-18 15:23] VITALS: BP 121/90; PULSE 70; RESP 17; TEMP 98.4
== END 2018-09-18 15:23 | disposition home or self-care (01) ==
LOC: EC 12:36
DX: R07.89 Other chest pain (principal); M54.9 Dorsalgia, unspecified; F10.129 Alcohol abuse with intoxication, unspecified; R11.0 Nausea; F17.200 Nicotine dependence, unspecified, uncomplicated; Z95.818 Presence of other cardiac implants and grafts; Z79.899 Other long term (current) drug therapy; Z88.6 Allergy status to analgesic agent; Z88.5 Allergy status to narcotic agent
CPT/HCPCS: 36415; 93005; 83880; 80053; 82550; 83690; 83735; 84484; 85025; 85610; 85730; 71046; 99285; 96374; 96361 ×2; G0480; J1170; 80320

== ENCOUNTER 2018-09-18 15:29 | Inpatient (IN) | payer OTHER ==
[2018-09-18] MEDS ORDERED: THIAMINE 100 MG/ML 2 ML VIAL IM STA (15:58)
[2018-09-18] MEDS ORDERED: SODIUM CHLORIDE 0.9% 1,000 ML IV STA (15:58)
[2018-09-18] MEDS ORDERED: SODIUM CHLORIDE 0.9% 1,000 ML IV ONE (15:58)
[2018-09-18] MEDS ORDERED: LORazepam 2 MG/ML INJ IV PRN (15:58)
[2018-09-18 16:30] LABS: Basophils % (A) 1 %; Eosinophils % (A) 1 %; HCT 45.2 % (39.0-53.0); Lymphocytes # (A) 2.4 k/uL (1.0-4.8); Lymphocytes % (A) 41 %; MCHC 33.1 g/dL (31.0-37.0); MCV 105.7 fL (80.0-100.0); Macrocytosis Slight; Mean Platelet Volume 7.4; Monocytes # (A) 0.3 k/uL (0-1.0); Monocytes % (A) 5 %; Neutrophils # (A) 2.9 k/uL (1.3-7.7); Neutrophils % (A) 51 %; Platelet Count 158 k/uL (150-450); RBC 4.28 m/uL (4.30-5.90); RDW 12.7 % (11.5-15.5); WBC 5.7 k/uL (3.8-10.6)
--- NOTE | 2018-09-18 16:35 | CT ---
EXAMINATION TYPE: CT brain saroj wo con DATE OF EXAM: 09/18/2018 COMPARISON: 07/26/2018 HISTORY: Fall today with posterior injury Headache. Neck pain. CT DLP: 1444.4 mGycm Automated exposure control for dose reduction was used. TECHNIQUE: CT scan of the head and cervical spine are performed without contrast. FINDINGS: There is some mucosal thickening right maxillary sinus. Ventricles of normal size. There is no mass effect nor midline shift. There is no sign of intracranial hemorrhage. The calvarium is in tact. There is mild cervical kyphotic deformity. There is anterior spurring at C5-6 and C6-7 without signif icant disc space narrowing. There is hypertrophic facet arthropathy at C3-4. There is no evidence of a fracture. Skull base appears intact. IMPRESSION: Negative CT scan of the brain. Mild right maxillary sinusitis. No change. Mild spondylotic changes in the lower cervical spine with kyphotic deformity. This probably relates t o old ligamentous injury. No significant change compared to old exam.
[2018-09-18 16:38] LABS: ALT 61 U/L (21-72); AST 99 U/L (17-59); African American GFR (CKD) >90 (>60 ml/min/1.73 sqM); Albumin 4.2 g/dL (3.5-5.0); Alkaline Phosphatase 97 U/L (38-126); Anion Gap 9 mmol/L; Blood Urea Nitrogen 4 mg/dL (9-20); Calcium 8.1 mg/dL (8.4-10.2); Carbon Dioxide 26 mmol/L (22-30); Chloride 112 mmol/L (98-107); Glucose 92 mg/dL (74-99); Magnesium 1.8 mg/dL (1.6-2.3); Non-African American GFR(CKD) >90 (>60 ml/min/1.73 sqM); Phosphorus 3.7 mg/dL (2.5-4.5); Potassium 4.2 mmol/L (3.5-5.1); Sodium 147 mmol/L (137-145); Total Bilirubin 0.5 mg/dL (0.2-1.3); Total Protein 6.9 g/dL (6.3-8.2)
[2018-09-18] MEDS ORDERED: busPIRone HCl 5 MG TAB PO PRN (16:46)
[2018-09-18 16:49] LABS: Alcohol 379 mg/dL
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
[2018-09-18] MEDS: LORazepam 2 MG/ML INJ IV PRN ×2 (17:57→20:03)
[2018-09-18] MEDS: HYDROcodone/APAP 5-325MG 1 EACH TAB PO PRN (18:01)
--- NOTE | 2018-09-18 19:00 | HP ---
HISTORY AND PHYSICAL DATE OF SERVICE: 09/18/2018 CHIEF COMPLAINT: Chest pain, back pain, and as well as syncope and fall. HISTORY OF PRESENT ILLNESS: This is a 42-year-old gentleman with a past medical history of multiple medical problems including history of hypertension, history of DJD, history EtOH, history of pancreatitis, history of claustrophobia, being followed by Dr. Corrine Andrea as well as Dr. Angelina Duran in the outpatient setting, apparently was complaining of chest pain earlier. Patient was evaluated. Symptomatic treatment was provided and patient went home. The alcohol was high. In the parking lot, patient apparently fell, hit the head and patient complaining of back pain, headache, and the patient admitted for further evaluation and treatment. There is no history of any fever, rigors or chills. No history of headache. No history of seizures at this time. PAST MEDICAL HISTORY: Hypertension, DJD, history EtOH, pancreatitis, claustrophobia, anxiety, depression. MEDICATIONS: Prior to admission include: 1. Buspirone. 2. Loratadine. ALLERGIES: KETORALAC, ULTRAM, MORPHINE. FAMILY HISTORY: History of hypertension and hyperlipidemia, history of alcoholism. SOCIAL HISTORY: Patient works in construction. History of alcohol smoking on a daily basis. REVIEW OF SYSTEMS: ENT: No diminished vision. No diminished hearing. CARDIOVASCULAR system: As mentioned earlier. RESPIRATION: As mentioned earlier. GI no nausea or vomiting. no dysuria or hematuria. NERVOUS SYSTEM: No numbness or weakness. ALLERGY/IMMUNOLOGY: No asthma or hayfever. MUSCULOSKELETAL as mentioned earlier. HEMATOLOGY/ONCOLOGY: No history of anemia. ENDOCRINE: No history of diabetes or hypothyroidism. CONSTITUTIONAL: As mentioned earlier. Dermatology: Negative. Rheumatology: Negative. Psychiatry: As mentioned earlier. PHYSICAL EXAMINATION: The patient is alert and oriented times three. Pulse 70. Blood pressure 130/95, respiration 18, temperature 97.8, pulse ox 98% room air. HEENT is conjunctivae normal. Oral mucosa moist. NECK is no jugular venous distention. No carotid bruit. No lymph node enlargement. CARDIOVASCULAR: S1, S2 normal. No S3, no S4. RESPIRATORY: Breath sounds diminished in the bases. A few scattered rhonchi. No crackles. ABDOMEN: Soft, nontender. No mass palpable. LEGS: No edema. No swelling. NERVOUS SYSTEM: Higher functions as mentioned earlier. Moves all four limbs. No focal motor or sensory deficit. LYMPHATICS: No lymph nodes palpable in the neck, axillae or groin. SKIN: No ulcer, rashes or bleeding. JOINTS: No active deforming arthropathy. Examination of the right shoulder: Minimal tenderness present. Abrasions present on the posterior scalp present. LAB: Investigations are: WBC 5.7. MCV 105.7. The CT scan of the head and cervical spine CT showed negative, mild spondylitic changes. ASSESSMENT: 1. Syncope, possibly vasovagal. 2. Alcohol intoxication. 3. History of chest pain, possibly nonspecific. 4. Musculoskeletal back pain. 5. History of degenerative joint disease. 6. Hypertension. 7. History of EtOH. 8. History of pancreatitis. 9. History of migraine. 10.History of anxiety, depression. 11.History of nicotine dependence. RECOMMENDATIONS AND DISCUSSION: In this 42-year-old gentleman who presented with multiple complex medical issues, we will monitor the patient closely, continue the current management, symptomatic treatment. I recommend CIWA protocol. Symptomatic treatment for the pain. Social Work/Case Management evaluation for arrange outpatient rehab. Repeat labs. Guarded prognosis because of multiple complex medical issues. Further recommendations to follow. A copy of this being forwarded to Dr. Angelina Duran who is the primary physician and Corrine Andrea. MMODL / IJN: [id number] /
[2018-09-18] MEDS: KETOROLAC 30 MG/ML 1 ML VIAL IVP PRN (20:03)
[2018-09-18] MEDS: THIAMINE 100 MG TAB PO SCH ×2 (20:04)
[2018-09-18] MEDS: LORATADINE 10 MG TAB PO SCH (21:38)
[2018-09-19] MEDS: HYDROcodone/APAP 5-325MG 1 EACH TAB PO PRN ×3 (00:05→16:58)
[2018-09-19] MEDS: LORazepam 2 MG/ML INJ IV PRN ×6 (04:10→19:37)
[2018-09-19] MEDS: KETOROLAC 30 MG/ML 1 ML VIAL IVP PRN ×2 (06:18→11:32)
[2018-09-19] MEDS ORDERED: PANTOPRAZOLE 40 MG TABLET PO SCH (07:30)
[2018-09-19] MEDS: THIAMINE 100 MG TAB PO SCH ×2 (07:46→16:58)
[2018-09-19 08:27] LABS: African American GFR (CKD) >90 (>60 ml/min/1.73 sqM); Anion Gap 8 mmol/L; Blood Urea Nitrogen 3 mg/dL (9-20); Calcium 8.7 mg/dL (8.4-10.2); Carbon Dioxide 26 mmol/L (22-30); Chloride 103 mmol/L (98-107); Glucose 73 mg/dL (74-99); Non-African American GFR(CKD) >90 (>60 ml/min/1.73 sqM); Sodium 137 mmol/L (137-145)
[2018-09-19] MEDS ORDERED: MULTIVITAMINS, THERA 1 EACH TAB PO SCH (09:00)
[2018-09-19 10:16] LABS: Basophils % (A) 1 %; Eosinophils % (A) 1 %; HCT 42.7 % (39.0-53.0); Lymphocytes % (A) 20 %; MCH 34.8 pg (25.0-35.0); MCHC 32.8 g/dL (31.0-37.0); MCV 106.1 fL (80.0-100.0); Macrocytosis Slight; Mean Platelet Volume 7.8; Monocytes # (A) 0.3 k/uL (0-1.0); Monocytes % (A) 6 %; Neutrophils # (A) 3.5 k/uL (1.3-7.7); Neutrophils % (A) 72 %; Platelet Count 118 k/uL (150-450); RBC 4.03 m/uL (4.30-5.90); RDW 12.6 % (11.5-15.5); WBC 4.9 k/uL (3.8-10.6)
[2018-09-19 11:00] VITALS: BMI 19.0
[2018-09-19] MEDS ORDERED: TEMAZEPAM 15 MG CAP PO PRN (17:51)
[2018-09-19] MEDS ORDERED: cloNIDine HCL 0.1 MG TAB PO PRN (17:52)
[2018-09-19] MEDS: cloNIDine HCL 0.1 MG TAB PO SCH ×2 (18:02→21:47)
[2018-09-19] MEDS ORDERED: HEPARIN SODIUM,PORCINE 5,000 UNIT/ML 1 ML VIAL SQ SCH (21:00)
[2018-09-19] MEDS ORDERED: NICOTINE 21MG/24HR PATCH TRANSDERM SCH (21:45)
[2018-09-19] MEDS: LORATADINE 10 MG TAB PO SCH (21:47)
--- NOTE | 2018-09-19 21:55 | PN ---
PROGRESS NOTE DATE OF SERVICE: 09/19/2018. This is a 42-year-old gentleman who was admitted with syncope also had significant EtOH withdrawal symptoms also. Patient is on CIWA protocol. No chest pain. No palpitations. No fever. EXAM: Alert and oriented x3. Pulse is 63, blood pressure 147/87, respiration 20, temperature 97.8, pulse ox 97% on room air. HEENT: Conjunctivae normal. NECK: No jugular venous distention. CARDIOVASCULAR: S1, S2 muffled. RESPIRATIONS: Breath sounds diminished in the bases. No rhonchi. No crackles. ABDOMEN is soft, nontender. LEGS: No edema. No swelling. CENTRAL NERVOUS SYSTEM: Diffusely weak and extreme tremors also present. LAB STUDIES: WBC 4.9. Alcohol is 379. ASSESSMENT: 1. Syncope, possibly vasovagal. 2. Acute alcohol intoxication. 3. Acute delirium tremens. 4. History of chest pain, possibly nonspecific. 5. Musculoskeletal chest and back pain. 6. History of degenerative joint disease. 7. History of EtOH. 8. History of pancreatitis. 9. History of migraines. 10.History of anxiety/depression. 11.History of nicotine dependence. RECOMMENDATIONS AND DISCUSSION: In this 42-year-old gentleman who presented with multiple complex medical issues, we will monitor the patient closely, continue the current medications, management and symptomatic treatment. CIWA protocol. Supplement vitamins. Symptomatic treatment. Otherwise Community Dietitian and Case Management consultation who will arrange outpatient rehab. Prognosis guarded. Fall precautions, seizure precautions. DT precautions. Prognosis guarded. Further recommendations to follow. See orders for details. MMODL / IJN: [id number] /
[2018-09-19 22:18] VITALS: RESP 16
[2018-09-20] MEDS: HYDROcodone/APAP 5-325MG 1 EACH TAB PO PRN (01:44)
[2018-09-20] MEDS: LORazepam 2 MG/ML INJ IV PRN (01:45)
[2018-09-20 04:39] VITALS: BP 129/89; PULSE 62; TEMP 97.9
[2018-09-20] MEDS ORDERED: FOLIC ACID 1 MG TAB PO SCH (12:00)
--- NOTE | 2018-09-21 01:14 | DS ---
DISCHARGE SUMMARY FINAL DIAGNOSES: 1. Syncope, possibly vasovagal. 2. Acute alcohol intoxication, acute seizure. 3. Acute delirium tremens. 4. History of chest pain, possibly nonspecific. 5. Musculoskeletal chest pain and back pain. 6. History of degenerative joint disease. 7. History of ETOH. 8. History of pancreatitis. 9. History of migraine. DISCHARGE DISPOSITION: Patient left the hospital AGAINST MEDICAL ADVICE. HISTORY OF PRESENT ILLNESS: This 42-year-old gentleman with a past medical history was admitted with syncope and as well as acute alcohol intoxication, features of delirium tremens. However the patient left the hospital AGAINST MEDICAL ADVICE. The prognosis remained extremely guarded throughout the hospitalization. Patient not willing to stay. Please refer to the multiple progress notes and other staff notes for further details. MMODL / IJN: [id number] /
== END 2018-09-20 07:10 | disposition left against medical advice (07) | DRG 894 ==
LOC: EC 15:29 → 3NMEDONC 15:58
PROVIDERS: ADMIT Hospitalist; ATTEND Hospitalist
DX: F10.231 Alcohol dependence with withdrawal delirium (principal); F17.200 Nicotine dependence, unspecified, uncomplicated; F40.240 Claustrophobia; I10 Essential (primary) hypertension; W18.30XA Fall on same level, unspecified, initial encounter; F41.9 Anxiety disorder, unspecified; F32.9 Major depressive disorder, single episode, unspecified; Y92.481 Parking lot as the place of occurrence of the external cause; Z82.49 Family history of ischemic heart disease and other diseases of the circulatory system; Z79.899 Other long term (current) drug therapy; Z88.6 Allergy status to analgesic agent; Z88.8 Allergy status to other drugs, medicaments and biological substances; Z81.1 Family history of alcohol abuse and dependence; Y90.8 Blood alcohol level of 240 mg/100 ml or more
CPT/HCPCS: 36415; 70450; 71046; 72125; 80048; 80053; 80320; 82550; 83690; 83735; 83880; 84100; 84484; 85025; 85610; 85730; 93005; 96361; 96372; 96374; 99285

== ENCOUNTER 2018-09-21 16:41 | Inpatient (IN) | payer OTHER ==
[2018-09-21] MEDS ORDERED: SODIUM CHLORIDE 0.9% 1,000 ML IV STA (17:40)
[2018-09-21] MEDS ORDERED: ASPIRIN 81 MG PO STA (17:40)
[2018-09-21 18:28] LABS: Basophils # (A) 0.1 k/uL (0-0.2); Basophils % (A) 1 %; Eosinophils # (A) 0.1 k/uL (0-0.7); Eosinophils % (A) 1 %; HCT 42.3 % (39.0-53.0); HGB 14.3 gm/dL (13.0-17.5); Lymphocytes # (A) 1.7 k/uL (1.0-4.8); Lymphocytes % (A) 38 %; MCH 35.5 pg (25.0-35.0); MCHC 33.8 g/dL (31.0-37.0); MCV 104.9 fL (80.0-100.0); Macrocytosis Slight; Mean Platelet Volume 7.9; Monocytes # (A) 0.4 k/uL (0-1.0); Monocytes % (A) 9 %; Neutrophils # (A) 2.2 k/uL (1.3-7.7); Neutrophils % (A) 48 %; Platelet Count 110 k/uL (150-450); RBC 4.03 m/uL (4.30-5.90); RDW 12.7 % (11.5-15.5); WBC 4.5 k/uL (3.8-10.6)
[2018-09-21 18:40] LABS: ALT 42 U/L (21-72); AST 89 U/L (17-59); African American GFR (CKD) >90 (>60 ml/min/1.73 sqM); Alkaline Phosphatase 122 U/L (38-126); Amylase 66 U/L (30-110); Anion Gap 13 mmol/L; Blood Urea Nitrogen 9 mg/dL (9-20); Calcium 8.7 mg/dL (8.4-10.2); Carbon Dioxide 20 mmol/L (22-30); Chloride 112 mmol/L (98-107); Glucose 96 mg/dL (74-99); Magnesium 1.8 mg/dL (1.6-2.3); Potassium 4.3 mmol/L (3.5-5.1); Sodium 145 mmol/L (137-145); Total Bilirubin 0.6 mg/dL (0.2-1.3)
--- NOTE | 2018-09-21 18:48 | XR ---
EXAMINATION TYPE: XR shoulder complete LT DATE OF EXAM: 09/21/2018 COMPARISON: NONE HISTORY: Pain TECHNIQUE: 3 views FINDINGS: I see no fracture nor dislocation. Joint spaces are normal. There are no pathologic calcifi cations. IMPRESSION: Negative left shoulder exam.
--- NOTE | 2018-09-21 18:49 | XR ---
EXAMINATION TYPE: XR chest 2V DATE OF EXAM: 09/21/2018 COMPARISON: 09/18/2018 HISTORY: Pain TECHNIQUE: Frontal and lateral views of the chest are obtained. FINDINGS: Heart and mediastinum are normal. Lungs are clear. Diaphragm is normal. Bony thorax appear s normal. IMPRESSION: Normal chest. No change.
[2018-09-21 18:50] LABS: INR 0.9 (<1.2); Partial Thromboplastin Time 23.9 sec (22.0-30.0); Prothrombin Time 9.6 sec (9.0-12.0)
[2018-09-21 18:55] LABS: Alcohol 375 mg/dL
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
[2018-09-21] MEDS ORDERED: SODIUM CHLORIDE 0.9% 1,000 ML with MVI, ADULT NO.4 WITH VIT K 10 ML, THIAMINE 100 MG, F... IV ONE ×4 (19:31)
[2018-09-21] MEDS ORDERED: LORazepam 2 MG/ML INJ IV PRN (19:32)
[2018-09-21] MEDS ORDERED: NALOXONE 0.4 MG/ML 1 ML VIAL IV PRN (19:32)
[2018-09-21] MEDS ORDERED: ONDANSETRON 4 MG/2 ML VIAL IVP PRN (19:32)
[2018-09-21] MEDS ORDERED: THIAMINE 100 MG/ML 2 ML VIAL IM STA (19:32)
[2018-09-21] MEDS: LORazepam 2 MG/ML INJ IV PRN ×3 (20:04→22:56)
[2018-09-21] MEDS: THIAMINE 100 MG TAB PO SCH (20:29)
[2018-09-22] MEDS: LORazepam 2 MG/ML INJ IV PRN ×6 (00:32→22:52)
[2018-09-22] MEDS: THIAMINE 100 MG TAB PO SCH ×2 (07:41→17:20)
[2018-09-22 16:20] LABS: Appearance,Urine Clear (Clear); Bilirubin,Urine Negative (Negative); Blood,Urine Negative (Negative); Color,Urine Yellow; Glucose,Urine (UA) 2+ (Negative); Ketones,Urine Negative (Negative); Leukocyte Esterase,Urine Negative (Negative); Nitrite,Urine Negative (Negative); PH, Urine 5.5 (5.0-8.0); Protein,Urine Negative (Negative); Urobilinogen,Urine <2.0 mg/dL (<2.0)
[2018-09-22] MEDS: SODIUM CHLORIDE 0.9% 1,000 ML IV SCH (16:40)
[2018-09-22] MEDS: PANTOPRAZOLE 40 MG TABLET PO SCH (17:20)
--- NOTE | 2018-09-22 19:37 | HP ---
HISTORY AND PHYSICAL DATE OF SERVICE: 09/22/2018 CHIEF COMPLAINT: Chest pain, weakness and alcoholism. HISTORY OF PRESENT ILLNESS: This is a 42-year-old gentleman with a past medical history of multiple medical problems including significant alcohol intake was recently admitted with syncope, possibly vasovagal, with alcohol intoxication. Patient subsequently had extreme delirium tremens and shaking, but however the patient left the hospital and signed out AGAINST MEDICAL ADVICE about 2 days ago and the patient apparently drinking heavily and the patient came to [facility] Emergency Room and was complaining of chest pain and multiple other symptomatology, patient admitted for further evaluation and treatment. The alcohol level was found to be 375. There is no history of fever, rigors or chills. No history of headache, loss of consciousness, seizures at this time. PAST MEDICAL HISTORY: History of alcohol, history of hypertension, history of DJD, history of pancreatitis, migraines, claustrophobia, anxiety, depression, PTSD. MEDICATIONS: Prior to admission include: Claritin 10 mg q.h.s. ALLERGIES: TORADOL, ULTRAM, MORPHINE. FAMILY HISTORY: Family history of hypertension, hyperlipidemia, alcoholism in the family. SOCIAL HISTORY: History of alcoholism, history of smoking. REVIEW OF SYSTEMS: ENT: No diminished vision. No diminished hearing. CARDIOVASCULAR: No angina or palpitations. RESPIRATION: As mentioned earlier. GI no nausea or vomiting. no dysuria. NERVOUS SYSTEM: As mentioned earlier. HEMATOLOGY/ONCOLOGY: No history of anemia. ALLERGY/IMMUNOLOGY: No asthma or hayfever. MUSCULOSKELETAL as mentioned earlier. ENDOCRINE: No history of diabetes or hypothyroid. CONSTITUTIONAL: As mentioned earlier. DERMATOLOGY: Negative. RHEUMATOLOGY negative. PSYCHIATRY as mentioned earlier. PHYSICAL EXAMINATION: The patient is alert and oriented times three. Pulse 69, blood pressure 140/89. Respirations 16, temperature 99.2, pulse ox 98% on room air. HEENT: Conjunctivae normal. NECK: No jugular venous distention. CARDIOVASCULAR: S1, S2 muffled. RESPIRATIONS: Breath sounds diminished in the bases. A few scattered rhonchi and crackles. ABDOMEN: Soft, nontender. No mass palpable. LEGS: No edema. No swelling. NERVOUS SYSTEM: Higher functions as mentioned earlier. Moves all 4 limbs. No focal motor or sensory deficits. LYMPHATICS: No lymph nodes palpable in the neck, axilla or groin. SKIN: No ulcers, no rashes and no bleeding. JOINTS: No active deforming arthropathy. NERVOUS SYSTEM: Mild tremors present. LABS: WBC 4.2, hemoglobin 14.2, sodium 140, potassium 4.3 and lipase is 505. Amylase is normal. ASSESSMENT: 1. Acute alcohol intoxication on presentation. 2. Early delirium tremens, possibly. 3. Chest pain possibly musculoskeletal. 4. History of hypertension. 5. History of degenerative joint disease. 6. History of pancreatitis. 7. History of migraine. 8. History of frostbite. 9. History of claustrophobia. 10.Anxiety/depression. 11.History of nicotine dependence. RECOMMENDATIONS AND DISCUSSION: In this 42-year-old gentleman who presented with multiple medical issues, we will monitor the patient closely. CIWA protocol. Symptomatic treatment. Resume the home medications. Otherwise, I would also recommend perinatal social worker consultation regarding the ECF. Prognosis guarded because of multiple complex medical issues and further recommendations to follow. Discussed with the patient at length who understands and agrees. The patient is willing to stay at this time. MMODL / IJN: [id number] /
[2018-09-22] MEDS: NICOTINE 21MG/24HR PATCH TRANSDERM SCH (22:52)
[2018-09-22] MEDS: ACETAMINOPHEN TAB 325 MG TAB PO PRN (22:52)
[2018-09-23] MEDS: SODIUM CHLORIDE 0.9% 1,000 ML IV SCH ×3 (02:32→20:37)
[2018-09-23] MEDS: THIAMINE 100 MG TAB PO SCH ×2 (08:06→17:25)
[2018-09-23] MEDS: PANTOPRAZOLE 40 MG TABLET PO SCH (08:06)
[2018-09-23] MEDS: NICOTINE 21MG/24HR PATCH TRANSDERM SCH (08:06)
[2018-09-23] MEDS: ACETAMINOPHEN TAB 325 MG TAB PO PRN ×2 (08:14→16:09)
[2018-09-23] MEDS: LORazepam 2 MG/ML INJ IV PRN ×4 (08:32→20:46)
--- NOTE | 2018-09-23 17:53 | P.PN ---
Subjective 42-year-old male is being treated for all call withdrawal. Patient given alcohol intoxicated. Patient has multiple hospitalizations from this. I c ounseled him at length today patient is agreeable to go to alcohol rehabilitation program. There is no benefit in admitting the patient multiple times if he doesn't quit alcohol same thing was counseled to the patient. Patient doesn't have any pancreatic that is at this time is a nonspecific eleva tion of lipase secondary to alcoholism. Constitutional: Denied any fatigue denied any fever. Cardio vascular: denied any chest pain, palpitations Gastrointestinal denied any nausea vomiting Pulmonary: Denied any shortness of breath cough Neurologic denied any new focal deficits All inpatient medications were reviewed and appropriate changes in these medications as dictated in the interval history and assessment and plan. Objective - Vital Signs Vital signs: Vital Signs Temp 99.3 F 09/23/18 14:31 Pulse 61 09/23/18 14:31 Resp 16 09/23/18 14:31 BP 150/93 09/23/18 14:31 Pulse Ox 100 09/23/18 14:31 Intake & Output 09/22/18 09/23/18 09/23/18 18:59 06:59 18:59 Output Total 600 2400 Balance -600 -2400 Output: Urine 600 2400 Other: Voiding Method Urinal Urinal # Voids 3 # Bowel Movements 1 - Exam PHYSICAL EXAMINATION: GENERAL: The patient is alert and oriented x3, not in any acute distress. Well developed, well nourished. HEENT: Pupils are round and equally reacting to light. EOMI. No scleral icterus. No conjunctival pallor. Normocephalic, atraumatic. No pharyngeal erythema. No thyromegaly. CARDIOVASCULAR: S1 and S2 present. No murmurs, rubs, or gallops. PULMONARY: Chest is clear to auscultation, no wheezing or crackles. ABDOMEN: Soft, nontender, nondistended, normoactive bowel sounds. No palpable organomegaly. MUSCULOSKELETAL: No joint swelling or deformity. EXTREMITIES: No cyanosis, clubbing, or pedal edema. NEUROLOGICAL: Gross neurological examination did not reveal any focal deficits. SKIN: No rashes. - Labs CBC & Chem 7: 09/21/18 18:00 09/21/18 18:00 Assessment and Plan Plan: -alcohol withdrawal: Withdrawal protocol -Acute all call intoxication that resolved at this time -Musculoskeletal chest pain -Depression -Continued nicotine dependence -Patient will be continued on alcohol withdrawal protocol today counseling regarding the alcohol cessation programs and drug rehabitation program was provided and the patient probably will be discharged tomorrow.
[2018-09-24] MEDS: LORazepam 2 MG/ML INJ IV PRN ×2 (05:15→08:46)
[2018-09-24 05:18] VITALS: RESP 18
[2018-09-24] MEDS: SODIUM CHLORIDE 0.9% 1,000 ML IV SCH (08:41)
[2018-09-24] MEDS: THIAMINE 100 MG TAB PO SCH (08:41)
[2018-09-24] MEDS: NICOTINE 21MG/24HR PATCH TRANSDERM SCH (08:41)
[2018-09-24] MEDS: PANTOPRAZOLE 40 MG TABLET PO SCH (08:41)
[2018-09-24 14:58] VITALS: BP 151/91; PULSE 74; TEMP 98.6
--- NOTE | 2018-09-24 16:52 | P.DS ---
Providers Date of admission: 09/21/18 20:54 Attending physician: Flor Mcgee MD Primary care physician: [facility] Course: 42-year-old male is being treated for all call withdrawal. Patient given alcohol intoxicated. Patient has multiple hospitalizations from this. I counseled him at length today patient is agreeable to go to alcohol rehabilitation program. There is no benefit in admitting the patient multiple times if he doesn't quit alcohol same thing was counseled to the patient. Patient doesn't have any pancreatic that is at this time is a nonspecific elevation of lipase secondary to alcoholism. 09/24/2018 Patient the withdrawals are better patient will be discharged on 9 as needed Ativan for 3 more days patient is willing to go to alcohol rehabilitation program at this time. She is still has some tremor. PHYSICAL EXAMINATION: GENERAL: The patient is alert and oriented x3, not in any acute distress. Well developed, well nourished. HEENT: Pupils are round and equally reacting to light. EOMI. No scleral icterus. No conjunctival pallor. Normocephalic, atraumatic. No pharyngeal erythema. No thyromegaly. CARDIOVASCULAR: S1 and S2 present. No murmurs, rubs, or gallops. PULMONARY: Chest is clear to auscultation, no wheezing or crackles. ABDOMEN: Soft, nontender, nondistended, normoactive bowel sounds. No palpable organomegaly. MUSCULOSKELETAL: No joint swelling or deformity. EXTREMITIES: No cyanosis, clubbing, or pedal edema. NEUROLOGICAL: Gross neurological examination did not reveal any focal deficits. SKIN: No rashes. Assessment and Plan Plan: -alcohol withdrawal: l -Acute all call intoxication on admission -Musculoskeletal chest pain -Depression -Continued nicotine dependence Patient Condition at Discharge: Fair Plan - Discharge Summary New Discharge Prescriptions: New LORazepam [Ativan] 1 mg PO TID PRN 3 Days #9 tab PRN Reason: withdrawl Pantoprazole [Protonix] 40 mg PO AC-BRKFST #14 tablet. Thiamine [Vitamin B-1] 100 mg PO BID-W/MEALS #60 tab No Action Loratadine [Claritin] 10 mg PO HS Discharge Medication List Loratadine [Claritin] 10 mg PO HS 09/18/18 [History] LORazepam [Ativan] 1 mg PO TID PRN 3 Days #9 tab 09/24/18 [Rx] Pantoprazole [Protonix] 40 mg PO AC-BRKFST #14 tablet. 09/24/18 [Rx] Thiamine [Vitamin B-1] 100 mg PO BID-W/MEALS #60 tab 09/24/18 [Rx] Follow up Appointment(s)/Referral(s): Angelina Duran MD [Primary Care Provider] - 3 Days (Please call and schedule appointment.) Patient Instructions/Handouts: Pancreatitis (DC), Abuse of Alcohol (DC), Alcohol Withdrawal (DC) Discharge Disposition: HOME SELF-CARE
== END 2018-09-24 15:33 | disposition home or self-care (01) | DRG 897 ==
LOC: EC 16:41 → 4MS4W 20:54
PROVIDERS: ADMIT Internal Medicine; ATTEND Internal Medicine
DX: F10.231 Alcohol dependence with withdrawal delirium (principal); F10.229 Alcohol dependence with intoxication, unspecified; Y90.8 Blood alcohol level of 240 mg/100 ml or more; F17.210 Nicotine dependence, cigarettes, uncomplicated; F32.9 Major depressive disorder, single episode, unspecified; F40.240 Claustrophobia; F43.10 Post-traumatic stress disorder, unspecified; I10 Essential (primary) hypertension; Z91.81 History of falling; Z81.1 Family history of alcohol abuse and dependence; G43.709 Chronic migraine without aura, not intractable, without status migrainosus; M19.90 Unspecified osteoarthritis, unspecified site; Z88.6 Allergy status to analgesic agent; Z88.5 Allergy status to narcotic agent; Z71.41 Alcohol abuse counseling and surveillance of alcoholic; R07.89 Other chest pain
CPT/HCPCS: 36415; 71046; 80053; 80320; 81003; 82150; 83690; 83735; 84484; 85025; 85610; 85730; 93005; 96361; 96365; 96372; 96375; 96376; 99285

== ENCOUNTER 2018-11-09 15:46 | Emergency (ER) | payer OTHER ==
[2018-11-09 16:08] VITALS: BP 123/79; PULSE 72; RESP 16; TEMP 98.2
[2018-11-09] MEDS ORDERED: AMOXIC-POT CLAV 875MG STARTER 2 EACH TABLET PO STA (16:53)
[2018-11-09] MEDS ORDERED: AMOXIC-POT CLAV 875-125MG 1 EACH TAB PO STA (16:53)
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
== END 2018-11-09 17:40 | disposition home or self-care (01) ==
LOC: EC 15:46
DX: J32.9 Chronic sinusitis, unspecified (principal); K04.7 Periapical abscess without sinus; F17.200 Nicotine dependence, unspecified, uncomplicated; Z88.5 Allergy status to narcotic agent; Z88.6 Allergy status to analgesic agent
CPT/HCPCS: 99283

== ENCOUNTER 2018-11-14 12:48 | Inpatient (IN) | payer OTHER ==
[2018-11-14] MEDS ORDERED: LORazepam 2 MG/ML INJ IV PRN ×2 (14:16)
[2018-11-14] MEDS ORDERED: SODIUM CHLORIDE 0.9% 1,000 ML with MVI, ADULT NO.4 WITH VIT K 10 ML, THIAMINE 100 MG, F... IV ONE ×8 (14:45→21:30)
[2018-11-14 15:03] LABS: Basophils # (A) 0.1 k/uL (0-0.2); Basophils % (A) 2 %; Eosinophils # (A) 0.1 k/uL (0-0.7); Eosinophils % (A) 2 %; HCT 45.7 % (39.0-53.0); HGB 15.5 gm/dL (13.0-17.5); Lymphocytes # (A) 1.8 k/uL (1.0-4.8); Lymphocytes % (A) 41 %; MCH 35.8 pg (25.0-35.0); MCV 105.1 fL (80.0-100.0); Macrocytosis Slight; Mean Platelet Volume 6.7; Monocytes # (A) 0.3 k/uL (0-1.0); Monocytes % (A) 6 %; Neutrophils # (A) 2.1 k/uL (1.3-7.7); Neutrophils % (A) 47 %; Platelet Count 111 k/uL (150-450); RBC 4.34 m/uL (4.30-5.90); RDW 12.3 % (11.5-15.5); WBC 4.4 k/uL (3.8-10.6)
[2018-11-14 15:21] LABS: ALT 87 U/L (21-72); AST 221 U/L (17-59); African American GFR (CKD) >90 (>60 ml/min/1.73 sqM); Albumin 4.1 g/dL (3.5-5.0); Alkaline Phosphatase 127 U/L (38-126); Anion Gap 13 mmol/L; Blood Urea Nitrogen 4 mg/dL (9-20); Calcium 8.5 mg/dL (8.4-10.2); Carbon Dioxide 22 mmol/L (22-30); Chloride 107 mmol/L (98-107); Glucose 87 mg/dL (74-99); Magnesium 1.9 mg/dL (1.6-2.3); Potassium 4.7 mmol/L (3.5-5.1); Sodium 142 mmol/L (137-145); Total Bilirubin 0.5 mg/dL (0.2-1.3); Total Protein 7.3 g/dL (6.3-8.2)
[2018-11-14 15:36] LABS: Alcohol 435 mg/dL
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
[2018-11-14] MEDS ORDERED: ONDANSETRON 4 MG/2 ML VIAL IVP PRN (15:43)
[2018-11-14] MEDS ORDERED: CLINDAMYCIN 600 MG in DEXTROSE 5% IN WATER 50 ML IVPB STA ×2 (15:43)
[2018-11-14] MEDS ORDERED: NALOXONE 0.4 MG/ML 1 ML VIAL IV PRN (15:43)
[2018-11-14] MEDS ORDERED: IPRATROPIUM-ALBUTEROL 3 ML NEB INHALATION PRN (16:44)
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
--- NOTE | 2018-11-14 17:07 | XR ---
EXAMINATION TYPE: XR sinus DATE OF EXAM: 11/14/2018 COMPARISON: NONE HISTORY: Sinusitis. Dental infection. TECHNIQUE: 3 views FINDINGS: Orbital margins are intact. There is mild soft tissue swelling in the right malar region. T here is evidence of minimal mucosal thickening in the right maxillary sinus. Temporal bones show norm al aeration. Sphenoid ethmoid frontal sinuses appear fairly normal. Sella turcica is normal. Maxilla is intact. IMPRESSION: There is evidence for mild right side maxillary sinusitis.
[2018-11-14] MEDS: HYDROcodone/APAP 5-325MG 1 EACH TAB PO PRN (17:59)
[2018-11-14] MEDS: LORazepam 2 MG/ML INJ IV PRN ×2 (17:59→21:04)
[2018-11-14] MEDS: THIAMINE 100 MG TAB PO SCH (17:59)
[2018-11-14] MEDS: PANTOPRAZOLE 40 MG/10 ML VIAL IVP SCH (17:59)
[2018-11-14] MEDS: AMOXIC-POT CLAV 875-125MG 1 EACH TAB PO SCH (21:01)
[2018-11-14] MEDS: SYMBICORT 160-4.5 MCG INHALER INHALATION SCH (21:35)
[2018-11-14] MEDS: HEPARIN SODIUM,PORCINE 5,000 UNIT/ML 1 ML VIAL SQ SCH (23:03)
[2018-11-15] MEDS: HYDROcodone/APAP 5-325MG 1 EACH TAB PO PRN ×2 (06:12→21:17)
[2018-11-15] MEDS: AMOXIC-POT CLAV 875-125MG 1 EACH TAB PO SCH ×2 (07:35→21:17)
[2018-11-15] MEDS: THIAMINE 100 MG TAB PO SCH ×2 (07:35→15:18)
[2018-11-15] MEDS: PANTOPRAZOLE 40 MG/10 ML VIAL IVP SCH (07:35)
[2018-11-15] MEDS: HEPARIN SODIUM,PORCINE 5,000 UNIT/ML 1 ML VIAL SQ SCH ×2 (07:35→15:18)
[2018-11-15] MEDS: LORazepam 2 MG/ML INJ IV PRN ×4 (07:38→23:43)
[2018-11-15] MEDS: SYMBICORT 160-4.5 MCG INHALER INHALATION SCH ×2 (07:49→20:08)
--- NOTE | 2018-11-15 11:08 | P.PN ---
Subjective 40-year-old gentleman was admitted for all call abuse, call withdrawal right upper molar dental infection. Patient wheezing improved patient is having withdrawals at this time patient is on IV Ativan. Constitutional: Denied any fatigue denied any fever. Cardio vascular: denied any chest pain, palpitations Gastrointestinal denied any nausea vomiting Pulmonary: Denied any shortness of breath cough Neurologic denied any new focal deficits All inpatient medications were reviewed and appropriate changes in these medications as dictated in the interval history and assessment and plan. Objective - Vital Signs Vital signs: Vital Signs Temp 96.9 F L 11/15/18 05:00 Pulse 72 11/15/18 05:00 Resp 18 11/15/18 05:00 BP 99/62 11/15/18 05:00 Pulse Ox 97 11/15/18 05:00 Intake & Output 11/14/18 11/15/18 11/15/18 18:59 06:59 18:59 Intake Total 900 Balance 900 Weight 68.039 kg Intake: Oral 900 Other: Voiding Method Toilet # Voids 1 2 - Exam PHYSICAL EXAMINATION: GENERAL: The patient is alert and oriented x3, not in any acute distress. Well developed, well nourished. Her secondary to have withdrawals HEENT: Pupils are round and equally reacting to light. EOMI. No scleral icterus. No conjunctival pallor. Normocephalic, atraumatic. No pharyngeal erythema. No thyromegaly. Patient does have multiple dental caries poor oral hygiene with swelling in the right cheek upper CARDIOVASCULAR: S1 and S2 present. No murmurs, rubs, or gallops. PULMONARY: Wheezing resolved entry bilateral lung gracia. ABDOMEN: Soft, nontender, nondistended, normoactive bowel sounds. No palpable or ganomegaly. MUSCULOSKELETAL: No joint swelling or deformity. EXTREMITIES: No cyanosis, clubbing, or pedal edema. NEUROLOGICAL: Gross neurological examination did not reveal any focal deficits. SKIN: No rashes. - Labs CBC & Chem 7: 11/14/18 14:42 11/14/18 14:42 Labs: Abnormal Lab Results - Last 24 Hours (Table) 11/14/18 11/14/18 Range/Units 14:42 14:42 MCV 105.1 H (80.0-100.0) fL MCH 35.8 H (25.0-35.0) pg Plt Count 111 L (150-450) k/uL BUN 4 L (9-20) mg/dL Creatinine 0.37 L (0.66-1.25) mg/dL AST 221 H (17-59) U/L ALT 87 H (21-72) U/L Alkaline Phosphatase 127 H (38-126) U/L Serum Alcohol 435 H* mg/dL Assessment and Plan Plan: -Alcohol abuse and alcohol overdose: Patient was started on IV fluids thiamine multivitamin supplementation -Alcohol withdrawal patient is on Ativan CIWA protocol patient will have withdr awals as patient is willing to quit alcohol Acute alcoholic hepatitis: Expected to improve with cessation of alcohol -Dental abscess or caries teeth patient was started on Augmentin patient will need to see a dentist once his discharge from here. -COPD with mild acute exacerbation patient will be started on inhaled steroids and inhalational treatments. - Extensive nicotine counseling and alcohol cessation counseling was provided
[2018-11-16] MEDS: HEPARIN SODIUM,PORCINE 5,000 UNIT/ML 1 ML VIAL SQ SCH ×4 (01:41→23:28)
[2018-11-16] MEDS: HYDROcodone/APAP 5-325MG 1 EACH TAB PO PRN ×4 (06:01→23:27)
[2018-11-16] MEDS: LORazepam 2 MG/ML INJ IV PRN ×5 (06:02→19:53)
[2018-11-16 07:16] LABS: HCT 43.9 % (39.0-53.0); HGB 13.7 gm/dL (13.0-17.5); MCH 34.3 pg (25.0-35.0); MCHC 31.2 g/dL (31.0-37.0); MCV 109.8 fL (80.0-100.0); Macrocytosis Moderate; Mean Platelet Volume 8.2; Platelet Count 120 k/uL (150-450); RDW 12.1 % (11.5-15.5); WBC 3.2 k/uL (3.8-10.6)
[2018-11-16 07:34] LABS: ALT 54 U/L (21-72); AST 63 U/L (17-59); African American GFR (CKD) >90 (>60 ml/min/1.73 sqM); Albumin 3.6 g/dL (3.5-5.0); Alkaline Phosphatase 125 U/L (38-126); Anion Gap 5 mmol/L; Blood Urea Nitrogen 4 mg/dL (9-20); Calcium 9.2 mg/dL (8.4-10.2); Carbon Dioxide 27 mmol/L (22-30); Chloride 105 mmol/L (98-107); Glucose 93 mg/dL (74-99); Sodium 137 mmol/L (137-145); Total Bilirubin 1.1 mg/dL (0.2-1.3); Total Protein 6.6 g/dL (6.3-8.2)
[2018-11-16] MEDS: AMOXIC-POT CLAV 875-125MG 1 EACH TAB PO SCH ×2 (07:50→20:56)
[2018-11-16] MEDS: PANTOPRAZOLE 40 MG TABLET PO SCH (07:50)
[2018-11-16] MEDS: THIAMINE 100 MG TAB PO SCH ×2 (07:50→15:16)
[2018-11-16] MEDS: SYMBICORT 160-4.5 MCG INHALER INHALATION SCH ×2 (09:20→20:40)
--- NOTE | 2018-11-16 14:07 | P.PN ---
Subjective 40-year-old gentleman was admitted for all call abuse, call withdrawal right upper molar dental infection. Patient wheezing improved patient is having withdrawals at this time patient is on IV Ativan. 11/16/2018 Patient is still requiring Ativan should be okay to be discharged tomorrow patient is requiring Ativan once in around 3-4 hours Constitutional: Denied any fatigue denied any fever. Cardio vascular: denied any chest pain, palpitations Gastrointestinal denied any nausea vomiting Pulmonary: Denied any shortness of breath cough Neurologic denied any new focal deficits All inpatient medications were reviewed and appropriate changes in these medications as dictated in the interval history and assessment and plan. Objective - Vital Signs Vital signs: Vital Signs Temp 97.7 F 11/16/18 13:47 Pulse 67 11/16/18 13:47 Resp 18 11/16/18 13:47 BP 133/85 11/16/18 13:47 Pulse Ox 99 11/16/18 13:47 Intake & Output 11/15/18 11/16/18 11/16/18 18:59 06:59 18:59 Intake Total 1300 300 Balance 1300 300 Intake: Intake, IV Titration 800 Amount Sodium Chloride 0.9% 1, 800 000 ml @ 100 mls/hr IV . Q10H7M ONE with Mvi, Adult No.4 with Vit K 10 ml with Thiamine 100 mg with Folic Acid 1 mg Rx#: [id number] Oral 500 300 Other: Voiding Method Toilet Toilet # Voids 2 1 3 - Exam PHYSICAL EXAMINATION: GENERAL: The patient is alert and oriented x3, not in any acute distress. Well developed, well nourished. Her secondary to have withdrawals HEENT: Pupils are round and equally reacting to light. EOMI. No scleral icterus. No conjunctival pallor. Normocephalic, atraumatic. No pharyngeal erythema. No thyromegaly. Patient does have multiple dental caries poor oral hygiene with swelling in the right cheek upper CARDIOVASCULAR: S1 and S2 present. No murmurs, rubs, or gallops. PULMONARY: Wheezing resolved entry bilateral lung gracia. ABDOMEN: Soft, nontender, nondistended, normoactive bowel sounds. No palpable organomegaly. MUSCULOSKELETAL: No joint swelling or deformity. EXTREMITIES: No cyanosis, clubbing, or pedal edema. NEUROLOGICAL: Gross neurological examination did not reveal any focal deficits. SKIN: No rashes. - Labs CBC & Chem 7: 11/16/18 06:48 11/16/18 06:48 Labs: Abnormal Lab Results - Last 24 Hours (Table) 11/16/18 11/16/18 Range/Units 06:48 06:48 WBC 3.2 L (3.8-10.6) k/uL RBC 4.00 L (4.30-5.90) m/uL MCV 109.8 H (80.0-100.0) fL Plt Count 120 L (150-450) k/uL BUN 4 L (9-20) mg/dL Creatinine 0.44 L (0.66-1.25) mg/dL AST 63 H (17-59) U/L Assessment and Plan Plan: -Alcohol abuse and alcohol overdose: Patient was started on IV fluids thiamine multivitamin supplementation -Alcohol withdrawal patient is on Ativan CIWA protocol patient will have withdrawals as patient is willing to quit alcohol Acute alcoholic hepatitis: Improved now -Dental abscess or caries teeth patient was started on Augmentin patient will need to see a dentist once his discharge from here. -COPD with mild acute exacerbation patient will be started on inhaled steroids and inhalational treatments. - Extensive nicotine counseling and alcohol cessation counseling was provided
[2018-11-17] MEDS: LORazepam 2 MG/ML INJ IV PRN ×6 (01:42→20:45)
[2018-11-17] MEDS: SYMBICORT 160-4.5 MCG INHALER INHALATION SCH ×2 (07:25→20:51)
[2018-11-17] MEDS: PANTOPRAZOLE 40 MG TABLET PO SCH (09:00)
[2018-11-17] MEDS: AMOXIC-POT CLAV 875-125MG 1 EACH TAB PO SCH ×2 (09:01→20:45)
[2018-11-17] MEDS: HEPARIN SODIUM,PORCINE 5,000 UNIT/ML 1 ML VIAL SQ SCH ×2 (09:01→16:44)
[2018-11-17] MEDS: THIAMINE 100 MG TAB PO SCH ×2 (09:01→16:44)
[2018-11-17] MEDS: HYDROcodone/APAP 5-325MG 1 EACH TAB PO PRN ×3 (09:01→20:46)
[2018-11-17] MEDS ORDERED: TEMAZEPAM 15 MG CAP PO PRN (13:45)
[2018-11-17] MEDS: NICOTINE 14MG/24HR PATCH TRANSDERM SCH (15:11)
--- NOTE | 2018-11-17 15:55 | PN ---
PROGRESS NOTE DATE OF SERVICE: 11/17/2018 This 42-year-old gentleman who was admitted with alcohol abuse and alcohol withdrawal is having had significant tremors at this time. The patient apparently planning to go to [place] for continued treatment after discharge. No chest pain. No palpitation. On exam, alert and oriented x3. Pulse is 68, blood pressure 141/91, respiration 18, temperature 97.9, pulse ox 98% on room air. HEENT: Conjunctivae normal. NECK: No jugular venous distention. CARDIOVASCULAR SYSTEM: S1, S2 muffled. RESPIRATORY SYSTEM: Breath sounds diminished at the bases. A few scattered rhonchi. No crackles. ABDOMEN: Soft, non-tender. LEGS: No edema. No swelling. NERVOUS SYSTEM: Diffuse tremors. LABS: WBC 3.2, hemoglobin 13.7, MCV 109.8. AST is 63. ASSESSMENT: 1. Acute alcohol intoxication, present on admission, with change in mental status and acute metabolic encephalopathy. 2. Acute delirium tremens. 3. Acute alcoholic hepatitis, present on admission. 4. Leukopenia secondary to alcohol. 5. Thrombocytopenia secondary to alcohol. 6. Increased mean corpuscular volume. 7. History of hypertension. 8. History of degenerative joint disease. 9. History of pancreatitis. 10.History of migraine. 11.History of claustrophobia. 12.History of anxiety, depression. 13.History of continued ongoing nicotine dependence. 14.FULL CODE. RECOMMENDATIONS AND DISCUSSION: In this 42-year-old gentleman who presented with multiple complex medical issues, at this time I recommend to continue current medication, continue symptomatic treatment. Otherwise, we will closely monitor. Continue CIWA protocol. Supplement vitamins. Guarded prognosis. Further recommendations to follow. MMODL / IJN: [id number] /
[2018-11-18] MEDS: LORazepam 2 MG/ML INJ IV PRN ×5 (00:17→21:24)
[2018-11-18] MEDS: HEPARIN SODIUM,PORCINE 5,000 UNIT/ML 1 ML VIAL SQ SCH ×4 (03:30→21:23)
[2018-11-18] MEDS: PANTOPRAZOLE 40 MG TABLET PO SCH (07:19)
[2018-11-18] MEDS: HYDROcodone/APAP 5-325MG 1 EACH TAB PO PRN ×3 (07:19→21:24)
[2018-11-18] MEDS: AMOXIC-POT CLAV 875-125MG 1 EACH TAB PO SCH ×2 (07:19→21:23)
[2018-11-18] MEDS: THIAMINE 100 MG TAB PO SCH ×2 (07:19→16:55)
[2018-11-18] MEDS: NICOTINE 14MG/24HR PATCH TRANSDERM SCH (07:20)
[2018-11-18] MEDS: SYMBICORT 160-4.5 MCG INHALER INHALATION SCH ×2 (07:46→20:28)
[2018-11-18 09:36] LABS: Basophils # (A) 0.1 k/uL (0-0.2); Basophils % (A) 2 %; Eosinophils # (A) 0.1 k/uL (0-0.7); Eosinophils % (A) 2 %; HCT 47.5 % (39.0-53.0); HGB 15.5 gm/dL (13.0-17.5); Lymphocytes # (A) 1.2 k/uL (1.0-4.8); Lymphocytes % (A) 29 %; MCH 34.6 pg (25.0-35.0); MCHC 32.6 g/dL (31.0-37.0); Macrocytosis Slight; Mean Platelet Volume 7.5; Monocytes # (A) 0.5 k/uL (0-1.0); Monocytes % (A) 12 %; Neutrophils # (A) 2.1 k/uL (1.3-7.7); Neutrophils % (A) 52 %; Platelet Count 155 k/uL (150-450); RBC 4.48 m/uL (4.30-5.90); RDW 12.2 % (11.5-15.5); WBC 4.1 k/uL (3.8-10.6)
[2018-11-18] MEDS ORDERED: FOLIC ACID 1 MG TAB PO SCH (12:00)
[2018-11-18] MEDS ORDERED: MULTIVITAMINS, THERA 1 EACH TAB PO SCH (12:00)
--- NOTE | 2018-11-18 18:35 | PN ---
PROGRESS NOTE DATE OF SERVICE: 11/28/2018 This 42-year-old gentleman who was admitted with acute alcohol intoxication, still having acute delirium tremens. The patient is tremulous and has difficulty in walking. No chest pain. No palpitations. No fever. EXAM: Alert and oriented times three. Pulse 66, blood pressure 127/70. Respirations 14. Temperature 98 degrees. Pulse ox 100 percent on room air. HEENT: Conjunctivae normal. NECK: No JVD. CARDIOVASCULAR: S1, S2 muffled. RESPIRATIONS: Breath sounds diminished in the bases. No rhonchi. No crackles. ABDOMEN is soft, nontender. LEGS are no edema. No swelling. CENTRAL NERVOUS SYSTEM: Mild weakness and mild tremors also present. LAB STUDIES: WBC 4.2, hemoglobin 15.5. ASSESSMENT: 1. Acute alcohol intoxication, present on admission with change in mental status and acute metabolic encephalopathy. 2. Acute delirium tremens. 3. Mild gait dysfunction from delirium tremens. 4. Acute alcoholic hepatitis, present on admission. 5. Leukopenia secondary to alcohol. 6. Thrombocytopenia secondary to alcohol. 7. Increased MCV. 8. History of hypertension. 9. History of degenerative joint disease. 10.History of pancreatitis. 11.History of migraines. 12.History of claustrophobia. 13.History of anxiety, depression. 14.History of ongoing nicotine dependence. 15.FULL CODE. RECOMMENDATIONS AND DISCUSSION: I recommend to continue current medications, monitoring, management and symptomatic treatment. Otherwise, at this time, I would recommend continue with current medications. Continue symptomatic treatment. Otherwise, I would follow the patient closely and increase ambulation. Once the patient is stabilized, the patient may be discharged home. Further recommendations to follow. MMODL / IJN: [id number] /
[2018-11-19] MEDS: LORazepam 2 MG/ML INJ IV PRN (00:39)
[2018-11-19 05:00] VITALS: BP 99/66; PULSE 65; RESP 18; TEMP 97.7
[2018-11-19] MEDS: SYMBICORT 160-4.5 MCG INHALER INHALATION SCH (07:00)
[2018-11-19] MEDS: HEPARIN SODIUM,PORCINE 5,000 UNIT/ML 1 ML VIAL SQ SCH (07:01)
[2018-11-19] MEDS: AMOXIC-POT CLAV 875-125MG 1 EACH TAB PO SCH (07:02)
[2018-11-19] MEDS: HYDROcodone/APAP 5-325MG 1 EACH TAB PO PRN (07:02)
[2018-11-19] MEDS: PANTOPRAZOLE 40 MG TABLET PO SCH (07:02)
[2018-11-19] MEDS: NICOTINE 14MG/24HR PATCH TRANSDERM SCH (07:02)
[2018-11-19] MEDS: THIAMINE 100 MG TAB PO SCH (07:02)
[2018-11-19 09:08] LABS: Basophils % (A) 1 %; Eosinophils # (A) 0.1 k/uL (0-0.7); Eosinophils % (A) 2 %; HCT 47.9 % (39.0-53.0); Lymphocytes # (A) 1.4 k/uL (1.0-4.8); Lymphocytes % (A) 34 %; MCH 34.3 pg (25.0-35.0); MCHC 31.2 g/dL (31.0-37.0); MCV 109.8 fL (80.0-100.0); Macrocytosis Moderate; Mean Platelet Volume 7.8; Monocytes # (A) 0.5 k/uL (0-1.0); Monocytes % (A) 12 %; Neutrophils % (A) 48 %; Platelet Count 166 k/uL (150-450); RBC 4.37 m/uL (4.30-5.90); RDW 12.2 % (11.5-15.5); WBC 4.2 k/uL (3.8-10.6)
--- NOTE | 2018-11-20 00:12 | DS ---
DISCHARGE SUMMARY DATE OF SERVICE: 11/29/2018. FINAL DIAGNOSES: 1. Acute alcohol intoxication, present on admission with change in mental status and acute alcoholic metabolic encephalopathy. 2. Acute delirium tremens. 3. Mild gait dysfunction with from delirium tremens. 4. Acute alcoholic hepatitis, present on admission. 5. Leukopenia secondary to alcohol. 6. Thrombocytopenia secondary to alcohol. 7. Increased MCV. 8. History of hypertension. 9. History of DJD. 10.History of pancreatitis. 11.History of migraines. 12.History of claustrophobia. 13.Anxiety/depression. 14.History of ongoing nicotine dependence. 15.FULL CODE. DISCHARGE CONDITION: On discharge, the patient will be discharged in stable condition with guarded prognosis. HISTORY OF PRESENT ILLNESS: This is a 42-year-old woman with a past medical history of multiple medical problems was admitted with acute alcohol intoxication, delirium tremens, being treated symptomatically, improved significantly. On exam, vitals are stable cardiovascular abdomen soft. Nervous system: No focal deficits. DISCHARGE ADVICE AND MEDICATIONS: 1. Diet is cardiac activity. 2. Activity limited unil followup. 3. Follow up with Dr. Angelina Duran in 1-2 days. 4. Follow up with rehab as recommended. DISCHARGE MEDICATIONS: 1. Augmentin 875 mg, finish the patient's home dose. 2. Claritin 10 mg q.h.s. 3. Folic acid 1 mg daily. 4. Habitrol 14 daily 21 daily. 5. Multivitamin 1 p.o. daily. 6. Pepcid 20 mg p.o. b.i.d. 7. ProAir 1-2 puffs q.6h. 8. Thiamine 100 mg p.o. daily. Once again, the patient being discharged in stable condition with guarded prognosis. MMODL / IJN: [id number] /
== END 2018-11-19 10:54 | disposition home or self-care (01) | DRG 896 ==
LOC: EC 12:48 → 4MS4W 16:25 → OBSVTOIN 11-16 14:20
PROVIDERS: ADMIT Hospitalist; ATTEND Hospitalist
DX: F10.121 Alcohol abuse with intoxication delirium (principal); G93.41 Metabolic encephalopathy; J44.1 Chronic obstructive pulmonary disease with (acute) exacerbation; D69.59 Other secondary thrombocytopenia; G62.9 Polyneuropathy, unspecified; K70.10 Alcoholic hepatitis without ascites; D72.819 Decreased white blood cell count, unspecified; F17.200 Nicotine dependence, unspecified, uncomplicated; F32.9 Major depressive disorder, single episode, unspecified; F40.240 Claustrophobia; I10 Essential (primary) hypertension; K02.9 Dental caries, unspecified; K04.7 Periapical abscess without sinus; T51.0X1A Toxic effect of ethanol, accidental (unintentional), initial encounter; G43.909 Migraine, unspecified, not intractable, without status migrainosus; M19.90 Unspecified osteoarthritis, unspecified site; F41.9 Anxiety disorder, unspecified; M54.9 Dorsalgia, unspecified; R26.2 Difficulty in walking, not elsewhere classified; Z79.899 Other long term (current) drug therapy; Z88.5 Allergy status to narcotic agent; Z82.49 Family history of ischemic heart disease and other diseases of the circulatory system; Z81.1 Family history of alcohol abuse and dependence
CPT/HCPCS: 36415; 70220; 80053; 80320; 83735; 85025; 85027; 94640; 99285

== ENCOUNTER 2018-12-19 20:23 | Inpatient (IN) | payer OTHER ==
[2018-12-19] MEDS ORDERED: LIDOCAINE 5% PATCH TOPICAL STA (20:41)
[2018-12-19] MEDS ORDERED: HYDROcodone/APAP 5-325MG 1 EACH TAB PO STA (20:41)
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
--- NOTE | 2018-12-19 20:58 | XR ---
EXAMINATION TYPE: XR chest 1V portable DATE OF EXAM: 12/19/2018 COMPARISON: 09/21/2018 HISTORY: Chest pain TECHNIQUE: Single frontal view of the chest is obtained. FINDINGS: There is no focal air space opacity, pleural effusion, or pneumothorax seen. The cardiac silhouette size is within normal limits. The osseous structures are intact. IMPRESSION: No acute process. Pulmonary hyperinflation could be related to degree of inspiration or underlying COPD. Correlate with pulmonary function tests. This is similar to the prior of 09/21/2018.
[2018-12-19 21:09] LABS: Basophils # (A) 0.1 k/uL (0-0.2); Basophils % (A) 1 %; Eosinophils % (A) 1 %; HCT 44.4 % (39.0-53.0); HGB 15.1 gm/dL (13.0-17.5); Lymphocytes # (A) 2.2 k/uL (1.0-4.8); Lymphocytes % (A) 48 %; MCH 35.1 pg (25.0-35.0); MCHC 34.1 g/dL (31.0-37.0); Macrocytosis Slight; Mean Platelet Volume 6.2; Monocytes # (A) 0.3 k/uL (0-1.0); Monocytes % (A) 6 %; Neutrophils # (A) 1.8 k/uL (1.3-7.7); Neutrophils % (A) 41 %; Platelet Count 223 k/uL (150-450); RBC 4.32 m/uL (4.30-5.90); RDW 12.4 % (11.5-15.5); WBC 4.5 k/uL (3.8-10.6)
[2018-12-19 21:15] LABS: African American GFR (CKD) >90 (>60 ml/min/1.73 sqM); Anion Gap 14 mmol/L; Blood Urea Nitrogen 3 mg/dL (9-20); Calcium 9.3 mg/dL (8.4-10.2); Carbon Dioxide 23 mmol/L (22-30); Chloride 108 mmol/L (98-107); Glucose 104 mg/dL (74-99); Sodium 145 mmol/L (137-145)
[2018-12-19 21:20] LABS: MCV 102.9 fL (80.0-100.0)
[2018-12-19 21:24] LABS: Alcohol 463 mg/dL
[2018-12-19] MEDS ORDERED: SODIUM CHLORIDE 0.9% 1,000 ML IV STA (21:52)
[2018-12-19] MEDS ORDERED: LORazepam 2 MG/ML INJ IV PRN ×2 (21:53)
[2018-12-19] MEDS ORDERED: THIAMINE 100 MG/ML 2 ML VIAL IM STA (21:53)
[2018-12-19] MEDS ORDERED: ASPIRIN 81 MG PO STA (21:55)
[2018-12-19] MEDS: THIAMINE 100 MG TAB PO SCH (22:17)
[2018-12-19] MEDS: NICOTINE 21MG/24HR PATCH TRANSDERM SCH (22:22)
[2018-12-19] MEDS: NITROGLYCERIN SL TABS 0.4 MG TAB SUBLINGUAL STA ×3 (22:56→23:34)
[2018-12-20] MEDS ORDERED: ONDANSETRON 4 MG/2 ML VIAL IVP PRN (00:18)
[2018-12-20] MEDS ORDERED: MORPHINE SULFATE 4 MG/ML SYRINGE IVP PRN (00:18)
[2018-12-20] MEDS: SODIUM CHLORIDE 0.9% 1,000 ML IV SCH ×4 (00:27→18:00)
[2018-12-20 03:43] LABS: ALT 71 U/L (21-72); AST 104 U/L (17-59); Amylase 64 U/L (30-110)
[2018-12-20] MEDS: THIAMINE 100 MG TAB PO SCH ×2 (06:25→16:35)
--- NOTE | 2018-12-20 08:02 | US ---
EXAMINATION TYPE: US abdomen complete DATE OF EXAM: 12/20/2018 COMPARISON: Previous study dated 11/14/2015. CLINICAL HISTORY: Abdominal pain. chest pain per patient. EXAM MEASUREMENTS: Liver Length: 12.6 cm Gallbladder Wall: 0.2 cm CBD: 0.2 cm Spleen: 7.8 cm Right Kidney: 11.6 x 4.2 x 4.4 cm Left Kidney: 10.2 x 5.7 x 5.7 cm Pancreas: wnl Liver: wnl Gallbladder: No stones seen Evidence for sonographic Harp's sign: No CBD: wnl Spleen: wnl Right Kidney: No hydronephrosis or masses seen Left Kidney: No hydronephrosis or masses seen Upper IVC: prominent, measures 2.3 cm Abd Aorta: wnl The pancreas is unremarkable. The liver is normal in size without biliary dilatation. The gallbladder is unremarkable without evidence cholelithiasis. The gallbladder wall measures 2 mm. This common hepatic duct measures 2 mm. The spleen is unremarkable. Both kidneys are normal. Visualized portions of aorta and IVC are normal. IMPRESSION: NORMAL ABDOMINAL ULTRASOUND.
[2018-12-20 08:39] LABS: African American GFR (CKD) >90 (>60 ml/min/1.73 sqM); Alkaline Phosphatase 101 U/L (38-126); Anion Gap 7 mmol/L; Blood Urea Nitrogen 3 mg/dL (9-20); Calcium 8.5 mg/dL (8.4-10.2); Carbon Dioxide 25 mmol/L (22-30); Chloride 112 mmol/L (98-107); Glucose 68 mg/dL (74-99); Potassium 3.8 mmol/L (3.5-5.1); Sodium 144 mmol/L (137-145)
[2018-12-20] MEDS ORDERED: ASPIRIN 325 MG TAB PO SCH (09:00)
[2018-12-20] MEDS: NICOTINE 21MG/24HR PATCH TRANSDERM SCH (09:12)
[2018-12-20 09:24] LABS: Cholesterol 192 mg/dL (<200); Triglycerides 31 mg/dL (<150)
[2018-12-20 09:32] LABS: LDL Cholesterol,Calculated 44 mg/dL (0-99)
[2018-12-20 09:40] LABS: HDL Cholesterol 142 mg/dL (40-60)
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
[2018-12-20] MEDS: HYDROcodone/APAP 10-325MG 1 EACH TAB PO PRN ×2 (12:37→18:00)
[2018-12-20] MEDS: LORazepam 2 MG/ML INJ IV PRN ×3 (12:38→21:23)
--- NOTE | 2018-12-20 14:36 | ECHOF ---
Referral Reason:cp MEASUREMENTS -------- HEIGHT: 182.9 cm WEIGHT: 63.5 kg BP: RVIDd: 1.5 cm (< 3.3) IVSd: 0.7 cm (0.6 - 1.1) LVIDd: 4.5 cm (3.9 - 5.3) LVPWd: 1.0 cm (0.6 - 1.1) IVSs: 1.4 cm LVIDs: 2.6 cm LVPWs: 1.3 cm Ao Diam: 3.1 cm (2.0 - 3.7) AV Cusp: 2.0 cm (1.5 - 2.6) LA Diam: 2.6 cm (2.7 - 3.8) MV EXCURSION: 21.562 mm (> 18.000) MV EF SLOPE: 52 mm/s (70 - 150) EPSS: 0.1 cm MV E Carlos: 0.98 m/s MV DecT: 261 ms MV A Carlos: 0.62 m/s MV E/A Ratio: 1.59 RAP: 5.00 mmHg RVSP: 12.70 mmHg FINDINGS -------- Sinus rhythm. This was a technically adequate study. The left ventricular size is normal. Left ventricular wall thickness is normal. Overall left vent ricular systolic function is normal with, an EF between 55 - 60 %. The right ventricle is normal in size. The left atrial size is normal. The right atrial size is normal. The aortic valve is trileaflet and appears structurally normal. The mitral valve is normal. The mitral valve leaflets are mildly thickened. There is trace mitral regurgitation. The tricuspid valve appears structurally normal. Trace tricuspid regurgitation present. Right zaael tricular systolic pressure is normal at < 35 mmHg. There is no pulmonic regurgitation present. The aortic root size is normal. Normal inferior vena cava with normal inspiratory collapse consistent with estimated right atrial pre ssure of 5 mmHg. There is no pericardial effusion. CONCLUSIONS -------- 1. Sinus rhythm. 2. This was a technically adequate study. 3. The left ventricular size is normal. 4. Left ventricular wall thickness is normal. 5. Overall left ventricular systolic function is normal with, an EF between 55 - 60 %. 6. The right ventricle is normal in size. 7. The left atrial size is normal. 8. The right atrial size is normal. 9. The aortic valve is trileaflet and appears structurally normal. 10. The mitral valve is normal. 11. The mitral valve leaflets are mildly thickened. 12. There is trace mitral regurgitation. 13. The tricuspid valve appears structurally normal. 14. Trace tricuspid regurgitation present. 15. Right ventricular systolic pressure is normal at < 35 mmHg. 16. There is no pulmonic regurgitation present. 17. The aortic root size is normal. 18. Normal inferior vena cava with normal inspiratory collapse consistent with estimated right atrial pressure of 5 mmHg. 19. There is no pericardial effusion. INHALATION THERAPY TEACHER: Cherie Palmer RDCS
[2018-12-20] MEDS: PANTOPRAZOLE 40 MG/10 ML VIAL IVP SCH (21:23)
[2018-12-21] MEDS: LORazepam 2 MG/ML INJ IV PRN ×3 (03:51→20:12)
[2018-12-21] MEDS: SODIUM CHLORIDE 0.9% 1,000 ML IV SCH ×2 (06:10→15:08)
[2018-12-21] MEDS: NICOTINE 21MG/24HR PATCH TRANSDERM SCH (07:19)
[2018-12-21] MEDS: THIAMINE 100 MG TAB PO SCH ×2 (07:23→17:09)
[2018-12-21] MEDS: PANTOPRAZOLE 40 MG/10 ML VIAL IVP SCH ×2 (07:23→21:38)
[2018-12-21] MEDS: FOLIC ACID 1 MG TAB PO SCH (07:23)
[2018-12-21] MEDS: HYDROcodone/APAP 10-325MG 1 EACH TAB PO PRN ×3 (07:29→20:12)
[2018-12-21 08:56] LABS: ALT 61 U/L (21-72); AST 72 U/L (17-59); African American GFR (CKD) >90 (>60 ml/min/1.73 sqM); Alkaline Phosphatase 114 U/L (38-126); Anion Gap 6 mmol/L; Blood Urea Nitrogen 4 mg/dL (9-20); Calcium 9.4 mg/dL (8.4-10.2); Carbon Dioxide 28 mmol/L (22-30); Chloride 102 mmol/L (98-107); Glucose 79 mg/dL (74-99); Potassium 4.1 mmol/L (3.5-5.1); Sodium 136 mmol/L (137-145); Total Bilirubin 1.3 mg/dL (0.2-1.3); Total Protein 6.7 g/dL (6.3-8.2)
--- NOTE | 2018-12-21 13:23 | P.PN ---
Subjective Patient is admitted for alcohol withdrawals withdrawals are better today. Patient was ruled out acute coronary syndromes was a valid by cardiology cleared by cardiology. Patient doesn't have any chest pain today patient had pain in the epigastric area mostly secondary to gastroesophageal reflux disease. Constitutional: Denied any fatigue denied any fever. Cardio vascular: denied any chest pain, palpitations Gastrointestinal denied any nausea vomiting Pulmonary: Denied any shortness of breath cough Neurologic denied any new focal deficits All inpatient medications were reviewed and appropriate changes in these medications as dictated in the interval history and assessment and plan. Objective - Vital Signs Vital signs: Vital Signs Temp 98.9 F 12/21/18 06:05 Pulse 79 12/21/18 07:24 Resp 18 12/21/18 07:24 BP 132/69 12/21/18 06:05 Pulse Ox 98 12/21/18 06:05 Intake & Output 12/20/18 12/21/18 12/21/18 18:59 06:59 18:59 Intake Total 400 400 Output Total 7881 [id number] Balance -700 -800 -650 Intake: Oral 400 400 Output: Urine [id number] Other: Voiding Method Urinal Urinal Urinal # Voids 1 - Exam PHYSICAL EXAMINATION: GENERAL: The patient is alert and oriented x3, not in any acute distress. Well developed, well nourished. HEENT: Pupils are round and equally reacting to light. EOMI. No scleral icterus. No conjunctival pallor. Normocephalic, atraumatic. No pharyngeal erythema. No thyromegaly. CARDIOVASCULAR: S1 and S2 present. No murmurs, rubs, or gallops. PULMONARY: Chest is clear to auscultation, no wheezing or crackles. ABDOMEN: Soft, nontender, nondistended, normoactive bowel sounds. No palpable organomegaly. MUSCULOSKELETAL: No joint swelling or deformity. EXTREMITIES: No cyanosis, clubbing, or pedal edema. NEUROLOGICAL: Gross neurological examination did not reveal any focal deficits. SKIN: No rashes. - Labs CBC & Chem 7: 12/19/18 20:45 12/21/18 07:29 Labs: Abnormal Lab Results - Last 24 Hours (Table) 12/21/18 Range/Units 07:29 Sodium 136 L (137-145) mmol/L BUN 4 L (9-20) mg/dL Creatinine 0.50 L (0.66-1.25) mg/dL AST 72 H (17-59) U/L Assessment and Plan Plan: -Chest pain atypical noncardiac, ruled out acute coronary syndromes can urology evaluated the patient. 2-D echocardiogram not show any wall motion abnormalities Probably related to alcoholic gastritis next and-acute alcoholic hepatitis expected to include cessation of alcohol excessive counseling was provided regarding this -Possible acute alcoholic gastritis: Patient will be started on Protonix -Alcohol abuse -Alcohol withdrawal for which patient will be on Ativan CIWA protocol, withdrawals are much better probably can be discharged tomorrow patient is to follow up with the drug rehabitation program -anion gap metabolic acidosis probably secondary to alcohol ketosis and starvation ketosis, improved now -DVT prophylaxis early ambulation
[2018-12-21 15:47] VITALS: BMI 18.2
[2018-12-22] MEDS: HYDROcodone/APAP 10-325MG 1 EACH TAB PO PRN (01:43)
[2018-12-22] MEDS: LORazepam 2 MG/ML INJ IV PRN ×3 (01:58→10:30)
[2018-12-22] MEDS: SODIUM CHLORIDE 0.9% 1,000 ML IV SCH (02:37)
[2018-12-22] MEDS: NICOTINE 21MG/24HR PATCH TRANSDERM SCH (07:09)
[2018-12-22] MEDS: PANTOPRAZOLE 40 MG/10 ML VIAL IVP SCH (07:12)
[2018-12-22] MEDS: FOLIC ACID 1 MG TAB PO SCH (07:12)
[2018-12-22] MEDS: THIAMINE 100 MG TAB PO SCH (07:12)
[2018-12-22 07:57] VITALS: BP 121/82; PULSE 86; RESP 16; TEMP 97.6
--- NOTE | 2018-12-22 13:16 | P.DS ---
Providers Date of admission: 12/21/18 12:16 Expected date of discharge: 12/22/18 Attending physician: William Downey Consults: 12/19/18 23:05 Consult Physician Routine Consulting Provider: Viktor Brooke Consult Reason/Comments: Chest pain Do you want consulting provider notified?: Yes, Notify in am Primary care physician: [facility] Course: Final diagnosis -Chest pain atypical, non-cardiac, ruled out acute coronary syndrome -Possible acute alcoholic gastritis -Alcohol abuse -Alcohol withdrawal -anion gap metabolic acidosis probably secondary to alcohol ketosis and starvation ketosis -DVT prophylaxis Discharge disposition Patient is being discharged in a stable condition with guarded prognosis to home and will be following up with [facility] for alcohol rehabilitation. Patient will follow-up with primary care provider upon discharge. Total time taken is 35 minutes. History of present illness This is a 43-year-old male who was recently admitted for alcohol withdrawals and also was having chest pain and was being closely monitored. Cardiology evaluated the patient and ruled out acute coronary syndrome. During hospitalization patient had an echo done showing overall left ventricular systolic function is normal with an EF between 55 and 60%. Patient will follow- up with cardiology in the outpatient setting upon discharge. Patient will also continue on Librium and taper down in the outpatient setting. Patient states that he has plans to go to [facility] alcohol rehabilitation and will be following up with them this week. Currently patient's condition is stable with like to be discharged today. Patient denies any chest pain, shortness of breath, or palpitations at this time. Patient is afebrile. Patient denies any nausea or vomiting and is tolerating diet. Patient is eating slowly and advancing slowly as he states he was getting epigastric discomfort yesterday but denies any today. Discussed with the patient about refraining from any alcohol intake and patient verbalizes understanding. Extremely guarded prognosis. On exam vital signs are stable. Temp is 97.6F, pulse 86, respirations are 16, blood pressure is 121/82, oxygen saturation is 96% on room air. Cardio S1, S2 are present. Respiratory system shows there to auscultation. Abdomen is soft, thin, nontender. Nervous system shows no focal deficits. Please refer to medication reconciliation sheet for a list of medications. Patient Condition at Discharge: Fair Plan - Discharge Summary Discharge Rx Participant: No New Discharge Prescriptions: New chlordiazePOXIDE HCl [Librium] 25 mg PO TID #16 capsule Continue Loratadine [Claritin] 10 mg PO HS Famotidine [Pepcid] 20 mg PO BID Nicotine 21Mg/24Hr Patch [Habitrol] 1 patch TRANSDERM DAILY Multivitamins, Thera [Multivitamin (formulary)] 1 tab PO DAILY Folic Acid 1 mg PO DAILY Thiamine [Vitamin B-1] 100 mg PO BID-W/MEALS #30 tab HYDROcodone/APAP 10-325MG [[place] 10-325] 10 - 325 mg PO QID PRN PRN Reason: Pain Discharge Medication List Loratadine [Claritin] 10 mg PO HS 09/18/18 [History] Famotidine [Pepcid] 20 mg PO BID 11/14/18 [History] Folic Acid 1 mg PO DAILY 11/14/18 [History] Multivitamins, Thera [Multivitamin (formulary)] 1 tab PO DAILY 11/14/18 [History] Nicotine 21Mg/24Hr Patch [Habitrol] 1 patch TRANSDERM DAILY 11/14/18 [History] Thiamine [Vitamin B-1] 100 mg PO BID-W/MEALS #30 tab 11/19/18 [Rx] HYDROcodone/APAP 10-325MG [[place] 10-325] 10 - 325 mg PO QID PRN 12/19/18 [History] chlordiazePOXIDE HCl [Librium] 25 mg PO TID #16 capsule 12/22/18 [Rx] Follow up Appointment(s)/Referral(s): Carie Vaca MD [STAFF PHYSICIAN] - 2 Weeks Angelina Duran MD [Primary Care Provider] - 1-2 days Patient Instructions/Handouts: Abuse of Alcohol (DC) Activity/Diet/Wound Care/Special Instructions: Make appts with Doctors listed above. Activity Limited until follow-up Follow-up with primary care provider upon discharge Follow-up with [facility] for admission and alcohol rehab Continue taking Librium as directed Avoid all alcohol intake. Continue with current diet and advance as tolerated Discharge Disposition: HOME SELF-CARE
== END 2018-12-22 13:01 | disposition home or self-care (01) | DRG 897 ==
LOC: EC 20:23 → 3SCARD 21:57 → 4MS4W 12-20 11:38 → OBSVTOIN 12-21 12:16
PROVIDERS: ADMIT Hospitalist; ATTEND Hospitalist
DX: F10.239 Alcohol dependence with withdrawal, unspecified (principal); E87.2 Acidosis; R07.89 Other chest pain; K29.20 Alcoholic gastritis without bleeding; F10.229 Alcohol dependence with intoxication, unspecified; Y90.8 Blood alcohol level of 240 mg/100 ml or more; F32.9 Major depressive disorder, single episode, unspecified; D53.9 Nutritional anemia, unspecified; I10 Essential (primary) hypertension; K21.9 Gastro-esophageal reflux disease without esophagitis; M19.90 Unspecified osteoarthritis, unspecified site; G43.909 Migraine, unspecified, not intractable, without status migrainosus; F17.210 Nicotine dependence, cigarettes, uncomplicated; Z71.6 Tobacco abuse counseling; Z71.41 Alcohol abuse counseling and surveillance of alcoholic; Z79.899 Other long term (current) drug therapy; Z87.81 Personal history of (healed) traumatic fracture; Z98.890 Other specified postprocedural states; Z88.6 Allergy status to analgesic agent; Z88.5 Allergy status to narcotic agent; Z83.49 Family history of other endocrine, nutritional and metabolic diseases; Z81.1 Family history of alcohol abuse and dependence; Z82.49 Family history of ischemic heart disease and other diseases of the circulatory system; G62.9 Polyneuropathy, unspecified
CPT/HCPCS: 36415; 71045; 76700; 80048; 80053; 80061; 80320; 82150; 83690; 84075; 84450; 84460; 84484; 85025; 93005; 93306; 94760; 96372; 99285

== ENCOUNTER 2019-01-03 18:50 | Inpatient (IN) | payer OTHER ==
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
[2019-01-03] MEDS ORDERED: ACETAMINOPHEN TAB 500 MG TAB PO STA (19:54)
[2019-01-03] MEDS ORDERED: IBUPROFEN 600 MG TAB PO STA (19:54)
[2019-01-03] MEDS ORDERED: THIAMINE 100 MG/ML 2 ML VIAL IM STA (20:00)
[2019-01-03] MEDS ORDERED: LORazepam 2 MG/ML INJ IV PRN ×2 (20:00)
[2019-01-03] MEDS ORDERED: SODIUM CHLORIDE 0.9% 1,000 ML with MVI, ADULT NO.4 WITH VIT K 10 ML, THIAMINE 100 MG, F... IV ONE ×4 (20:00)
[2019-01-03 20:20] LABS: Basophils # (A) 0.1 k/uL (0-0.2); Basophils % (A) 2 %; Eosinophils # (A) 0.1 k/uL (0-0.7); Eosinophils % (A) 2 %; HCT 44.5 % (39.0-53.0); HGB 14.7 gm/dL (13.0-17.5); Lymphocytes # (A) 3.2 k/uL (1.0-4.8); Lymphocytes % (A) 48 %; MCH 34.3 pg (25.0-35.0); MCV 103.7 fL (80.0-100.0); Macrocytosis Slight; Mean Platelet Volume 6.8; Monocytes # (A) 0.4 k/uL (0-1.0); Monocytes % (A) 5 %; Neutrophils # (A) 2.7 k/uL (1.3-7.7); Neutrophils % (A) 41 %; Platelet Count 196 k/uL (150-450); RBC 4.29 m/uL (4.30-5.90); RDW 12.4 % (11.5-15.5); WBC 6.7 k/uL (3.8-10.6)
[2019-01-03 20:32] LABS: ALT 38 U/L (21-72); AST 69 U/L (17-59); African American GFR (CKD) >90 (>60 ml/min/1.73 sqM); Albumin 4.8 g/dL (3.5-5.0); Alkaline Phosphatase 92 U/L (38-126); Anion Gap 12 mmol/L; Blood Urea Nitrogen 5 mg/dL (9-20); Calcium 9.1 mg/dL (8.4-10.2); Carbon Dioxide 20 mmol/L (22-30); Chloride 108 mmol/L (98-107); Glucose 78 mg/dL (74-99); Magnesium 2.1 mg/dL (1.6-2.3); Non-African American GFR(CKD) >90 (>60 ml/min/1.73 sqM); Phosphorus 4.5 mg/dL (2.5-4.5); Sodium 140 mmol/L (137-145); Total Bilirubin 0.8 mg/dL (0.2-1.3)
[2019-01-03 20:41] LABS: Alcohol 406 mg/dL
[2019-01-03] MEDS ORDERED: NALOXONE 0.4 MG/ML 1 ML VIAL IV PRN (21:16)
[2019-01-03] MEDS ORDERED: HYDROcodone/APAP 10-325MG 1 EACH TAB PO PRN (23:53)
[2019-01-04] MEDS: HYDROcodone/APAP 5-325MG 1 EACH TAB PO PRN
[2019-01-04] MEDS: LORazepam 2 MG/ML INJ IV PRN ×5 (00:02→19:16)
[2019-01-04] MEDS: HYDROmorphone 0.5 MG/0.5 ML SYRINGE IVP PRN ×2 (00:13→06:16)
[2019-01-04] MEDS: HYDROcodone/APAP 10-325MG 1 EACH TAB PO PRN ×4 (02:34→19:16)
--- NOTE | 2019-01-04 03:29 | HP ---
HISTORY AND PHYSICAL DATE OF SERVICE: 01/03/2019 CHIEF COMPLAINT: Multiple episodes of fall, abdominal pain, left loin pain, chest pain. HISTORY OF PRESENT ILLNESS: This 43-year-old gentleman with a past medical history of significant EtOH, history of hypertension, history of DJD, history of migraine, history of pancreatitis, history of claustrophobia, anxiety, depression, being followed by Dr. Corrine Andrea and as well as Dr. Angelina Duran in the outpatient setting has a history of significant alcohol intake. The patient drinks multiple beers a day. The patient has some pain in the anterior part of the abdomen and also to the loin pain and also back pain. The patient apparently had a fall with head injury about 3 days ago and because of increasing difficulties, the patient came to [facility] for further evaluation and treatment. Patient also had numbness of the legs and as well as chest pains also, which the patient relates as a pressure type of pain. There is no history of fever, rigors. No headache, loss of consciousness or seizures. CT scan of the head and cervical spine CT was done on admission from the ER which showed no acute abnormality. Some anterolisthesis with DJD was noted. Alcohol was more than 400. There is no history of fever, rigors or chills. PAST MEDICAL HISTORY: History of hypertension, history of DJD, ETOH, pancreatitis, migraine, history of claustrophobia, history of anxiety, depression. MEDICATIONS: Prior to admission include home medications are: 1. Claritin 10 mg p.o. daily. 2. [place] 10 mg q.i.d. p.r.n. ALLERGIES: TORADOL and ULTRAM. FAMILY HISTORY: History of hyperlipidemia, hypertension, alcoholism. SOCIAL HISTORY: History of alcohol, history of smoking, continued ongoing. REVIEW OF SYSTEMS: ENT mentioned earlier. CARDIOVASCULAR: As mentioned earlier. RESPIRATION as mentioned earlier. GASTROINTESTINAL: As mentioned earlier. mentioned earlier. NERVOUS SYSTEM: No numbness or weakness. ALLERGY/IMMUNOLOGY: No asthma or hayfever. MUSCULOSKELETAL as mentioned earlier. HEMATOLOGY/ONCOLOGY: No history of anemia. ENDOCRINE: No history of diabetes or hypothyroidism. CONSTITUTIONAL: As mentioned earlier. DERMATOLOGY: Negative. RHEUMATOLOGY negative. PSYCHIATRY as mentioned earlier. PHYSICAL EXAMINATION: Alert and oriented x3. Pulse is 67. Blood pressure 100/59, respiration 18, temperature 97.1, pulse ox 98% on room air. HEENT: Conjunctivae normal. Oral mucosa moist. NECK is no jugular venous distention. No carotid bruit. No lymph node enlargement. CARDIOVASCULAR system: S1, S2. No S3, no S4. RESPIRATORY: Breath sounds diminished in the bases. No rhonchi. No crackles. ABDOMEN: Soft, mild diffuse tenderness on the left side. No guarding. No rigidity. No mass palpable. LEGS: No edema. No swelling. NERVOUS SYSTEM: Higher functions as mentioned earlier. Moves all four extremities. No focal motor or sensory deficit. LYMPHATICS: No lymph nodes palpable in the neck, axillae or groin. SKIN: No ulcers, no rashes. No bleeding. JOINTS: No active deforming arthropathy. LAB STUDIES: WBC 6.2, hemoglobin 14.2, sodium 140, potassium 5. ASSESSMENT: 1. Acute alcohol intoxication. 2. Mild alcoholic hepatitis. 3. Left lower abdominal pain and loin pain, rule out urinary tract infection. 4. Chest pain, rule out coronary artery disease. 5. Fall and musculoskeletal pain diffusely. 6. Hypertension. 7. History of degenerative joint disease. 8. History of migraine. 9. History of pancreatitis. 10.History of anxiety, depression. 11.History of continued ongoing nicotine dependence. RECOMMENDATIONS AND DISCUSSION: In this 43-year-old gentleman who presented with multiple complex medical issues, at this time, I will continue the current medications, management and symptomatic treatment. Smoking and alcohol cessation has been recommended. The patient does not have any withdrawal features yet. I would recommend to closely monitor the patient with CIWA protocol looking for any evidence of alcohol withdrawal seizures or delirium tremens. Otherwise, I would recommend symptomatic treatment. Alcohol rehab, outpatient alcohol rehab is also recommended. See orders for details. We will order an EKG and a set of troponins also to rule out the cardiac causes. Discussed with the patient who understands and agrees. I copy of dictation is being forwarded Dr. Angelina Duran who is the primary physician. 1. Consult. MMODL / IJN: [id number] /
[2019-01-04 07:16] LABS: African American GFR (CKD) >90 (>60 ml/min/1.73 sqM); Anion Gap 10 mmol/L; Basophils # (A) 0.1 k/uL (0-0.2); Basophils % (A) 1 %; Blood Urea Nitrogen 6 mg/dL (9-20); Calcium 8.6 mg/dL (8.4-10.2); Carbon Dioxide 23 mmol/L (22-30); Chloride 108 mmol/L (98-107); Eosinophils # (A) 0.1 k/uL (0-0.7); Eosinophils % (A) 3 %; Glucose 71 mg/dL (74-99); HCT 40.7 % (39.0-53.0); HGB 13.4 gm/dL (13.0-17.5); Lymphocytes % (A) 52 %; MCH 34.7 pg (25.0-35.0); MCV 105.1 fL (80.0-100.0); Macrocytosis Slight; Mean Platelet Volume 6.3; Monocytes # (A) 0.3 k/uL (0-1.0); Monocytes % (A) 6 %; Neutrophils # (A) 1.4 k/uL (1.3-7.7); Neutrophils % (A) 36 %; Non-African American GFR(CKD) >90 (>60 ml/min/1.73 sqM); Platelet Count 182 k/uL (150-450); Potassium 3.6 mmol/L (3.5-5.1); RBC 3.87 m/uL (4.30-5.90); RDW 12.5 % (11.5-15.5); Sodium 141 mmol/L (137-145); WBC 3.9 k/uL (3.8-10.6)
[2019-01-04] MEDS: LORATADINE 10 MG TAB PO SCH (08:07)
[2019-01-04] MEDS: THIAMINE 100 MG TAB PO SCH ×2 (08:07→18:23)
[2019-01-04] MEDS: NICOTINE 14MG/24HR PATCH TRANSDERM SCH (08:07)
[2019-01-04 11:32] VITALS: BMI 19.0
--- NOTE | 2019-01-04 13:49 | XR ---
EXAMINATION TYPE: XR chest 1V portable DATE OF EXAM: 01/04/2019 Comparison: 12/19/2018 Clinical History: 43-year-old male with cough, pneumonia, left-sided chest and abdominal pain. Findings: The cardiomediastinal silhouette, aorta, and pulmonary vasculature are within normal limits. Lungs and pleural spaces are clear. Impression: No acute cardiopulmonary process.
[2019-01-04 14:23] LABS: Prothrombin Time 10.4 sec (9.0-12.0)
--- NOTE | 2019-01-04 15:43 | PN ---
PROGRESS NOTE DATE OF SERVICE: 01/04/2019 This 43-year-old gentleman who was admitted with acute alcohol intoxication also had alcoholic hepatitis. The patient also had left lower abdominal pain as well as chest pain. The patient is being closely monitored at this time. The patient also had features of delirium tremens, [facility] protocol was followed. Alcohol was 400 at the time of admission. The troponins are negative. PAST MEDICAL HISTORY: Reviewed. REVIEW OF SYSTEMS: CARDIOVASCULAR: As mentioned earlier. RESPIRATORY: As mentioned earlier. GASTROINTESTINAL: As mentioned earlier. GENITOURINARY: No dysuria. CENTRAL NERVOUS SYSTEM: No numbness or weakness. CURRENT MEDICATIONS: Reviewed and include: 1. [place] 5 mg q.6h p.r.n. and 10 mg q.i.d. p.r.n. 2. Dilaudid 0.5 mg q.6. 3. Claritin 10 mg daily. 4. Ativan 1 mg q.2 p.r.n. 5. Narcan 0.2 q.2 p.r.n. 6. Habitrol 14 daily. 7. Restoril 15 mg q.h.s. p.r.n. 8. Vitamin B1 100 mg p.o. daily. PHYSICAL EXAM: Patient is alert and oriented times three. Pulse 70. Blood pressure 102/64, respiration 16, temperature 97.7, pulse ox 97% on room air. HEENT: Conjunctivae normal. Oral mucosa moist. NECK is no jugular venous distention. No carotid bruit. No lymph node enlargement. CARDIOVASCULAR systems: S1, S2. RESPIRATION: Breath sounds diminished in the bases. A few scattered rhonchi and expiratory wheezing also present. No crackles. ABDOMEN: Soft, nontender. No mass palpable. LEGS: No edema. No swelling. NERVOUS SYSTEM: Higher functions as mentioned earlier. Moves all four limbs. No focal deficits. LYMPHATICS: No lymph nodes palpable in the neck, axillae or groin. SKIN: No ulcers, rashes or bleeding. JOINTS: No active deforming arthropathy. LABS: At this time shows WBC 3.2, hemoglobin 13.2, sodium 141, potassium 3.6. ASSESSMENT: 1. Acute alcohol intoxication. 2. Mild alcoholic hepatitis. 3. Acute delirium tremens. 4. Left lower abdominal pain and loin pain. Rule out urinary tract infection. 5. Chest pain, rule out coronary artery disease. 6. Possible acute bronchitis, rule out pneumonia. 7. Fall and musculoskeletal pain, diffusely. 8. Hypertension. 9. Degenerative joint disease. 10.History of migraines. 11.History of pancreatitis. 12.History of anxiety, depression. 13.History of continued ongoing nicotine dependence. RECOMMENDATIONS AND DISCUSSION: I recommend to continue current medications, continue to monitor, management and symptomatic treatment. Otherwise, at this time, I would also recommend amylase, lipase, and also a chest x-ray to rule out the possibility of any pneumonia. Otherwise, also add bronchodilators. Smoking cessation. [facility] protocol. Ativan p.r.n. Prognosis guarded. Further recommendations to follow. MMODL / IJN: [id number] /
[2019-01-04 17:36] LABS: Appearance,Urine Clear (Clear); Bilirubin,Urine Negative (Negative); Blood,Urine Negative (Negative); Color,Urine Yellow; Glucose,Urine (UA) Negative (Negative); Ketones,Urine Negative (Negative); Leukocyte Esterase,Urine Negative (Negative); Nitrite,Urine Negative (Negative); Protein,Urine Negative (Negative); Specific Gravity,Urine 1.019 (1.001-1.035); Urobilinogen,Urine <2.0 mg/dL (<2.0)
[2019-01-04] MEDS: HEPARIN SODIUM,PORCINE 5,000 UNIT/ML 1 ML VIAL SQ SCH (19:16)
[2019-01-04] MEDS: IPRATROPIUM-ALBUTEROL 3 ML NEB INHALATION SCH (19:59)
[2019-01-05] MEDS: HYDROcodone/APAP 10-325MG 1 EACH TAB PO PRN ×4 (00:27→20:57)
[2019-01-05] MEDS: TEMAZEPAM 15 MG CAP PO PRN ×2 (00:29→21:00)
[2019-01-05 07:50] LABS: African American GFR (CKD) >90 (>60 ml/min/1.73 sqM); Anion Gap 5 mmol/L; Blood Urea Nitrogen 9 mg/dL (9-20); Calcium 9.5 mg/dL (8.4-10.2); Carbon Dioxide 29 mmol/L (22-30); Chloride 105 mmol/L (98-107); Glucose 81 mg/dL (74-99); Non-African American GFR(CKD) >90 (>60 ml/min/1.73 sqM); Potassium 4.8 mmol/L (3.5-5.1); Sodium 139 mmol/L (137-145)
[2019-01-05 08:45] LABS: Basophils # (A) 0.1 k/uL (0-0.2); Basophils % (A) 2 %; Eosinophils # (A) 0.1 k/uL (0-0.7); Eosinophils % (A) 2 %; HCT 43.5 % (39.0-53.0); HGB 14.6 gm/dL (13.0-17.5); Lymphocytes # (A) 1.6 k/uL (1.0-4.8); Lymphocytes % (A) 34 %; MCH 35.6 pg (25.0-35.0); MCHC 33.6 g/dL (31.0-37.0); Macrocytosis Slight; Monocytes # (A) 0.4 k/uL (0-1.0); Monocytes % (A) 8 %; Neutrophils # (A) 2.5 k/uL (1.3-7.7); Neutrophils % (A) 52 %; Platelet Count 150 k/uL (150-450); RDW 12.4 % (11.5-15.5); WBC 4.7 k/uL (3.8-10.6)
[2019-01-05] MEDS: NICOTINE 14MG/24HR PATCH TRANSDERM SCH (09:02)
[2019-01-05] MEDS: IPRATROPIUM-ALBUTEROL 3 ML NEB INHALATION SCH ×3 (09:02→20:59)
[2019-01-05] MEDS: LORATADINE 10 MG TAB PO SCH (09:03)
[2019-01-05] MEDS: HEPARIN SODIUM,PORCINE 5,000 UNIT/ML 1 ML VIAL SQ SCH ×2 (09:03→20:57)
[2019-01-05] MEDS: THIAMINE 100 MG TAB PO SCH ×2 (09:03→17:49)
[2019-01-05] MEDS: LORazepam 2 MG/ML INJ IV PRN ×2 (09:04→18:58)
--- NOTE | 2019-01-05 15:20 | PN ---
PROGRESS NOTE DATE OF SERVICE: 01/05/2019 This is a 43-year-old gentleman who was admitted with acute alcohol intoxication also had features of acute delirium tremens also. No chest pain. No palpitations. No fever. Patient also had acute bronchitis. The chest x-ray showed no acute abnormality. PHYSICAL EXAM: Alert and oriented x3. Pulse is 66, blood pressure 130/92, respiration 16, temperature 98.4, pulse ox 99% on room air. HEENT: Conjunctivae normal. NECK: No jugular venous distension. RESPIRATION: Breath sounds diminished at the bases. A few scattered rhonchi, no crackles. ABDOMEN: Soft, nontender. LEGS: No edema, no swelling. NERVOUS SYSTEM: Diffuse tremors and weakness present. LABS: WBC is 4.7, hemoglobin is 14.6. ASSESSMENT: 1. Acute alcohol intoxication. 2. Mild acute alcoholic hepatitis, present on admission. 3. Acute delirium tremens. 4. Left lower abdominal quadrant abdominal pain. 5. Chest pain, possibly musculoskeletal. 6. Possible acute bronchitis, no evidence of pneumonia. 7. Fall and musculoskeletal pain diffusely. 8. Hypertension. 9. Degenerative joint disease. 10.History of migraines. 11.History of pancreatitis. 12.History of anxiety, depression. 13.Continued ongoing nicotine dependence. RECOMMENDATION: Recommend to continue current medications, continue to monitor and symptomatic treatment, closely monitor. Guarded prognosis because of multiple complex medical issues. Further recommendations to follow. MMODL / ISAIAH: [id number] /
[2019-01-05 15:24] VITALS: RESP 16
[2019-01-06 07:26] VITALS: BP 116/78; PULSE 70; TEMP 98.2
[2019-01-06 08:23] LABS: Basophils % (A) 1 %; Eosinophils # (A) 0.2 k/uL (0-0.7); Eosinophils % (A) 4 %; HCT 44.5 % (39.0-53.0); HGB 14.7 gm/dL (13.0-17.5); Lymphocytes # (A) 1.3 k/uL (1.0-4.8); Lymphocytes % (A) 29 %; MCH 35.1 pg (25.0-35.0); MCV 106.3 fL (80.0-100.0); Macrocytosis Slight; Monocytes # (A) 0.3 k/uL (0-1.0); Monocytes % (A) 7 %; Neutrophils # (A) 2.4 k/uL (1.3-7.7); Neutrophils % (A) 57 %; Platelet Count 148 k/uL (150-450); RBC 4.18 m/uL (4.30-5.90); RDW 12.5 % (11.5-15.5); WBC 4.3 k/uL (3.8-10.6)
[2019-01-06 08:26] LABS: African American GFR (CKD) >90 (>60 ml/min/1.73 sqM); Anion Gap 5 mmol/L; Blood Urea Nitrogen 9 mg/dL (9-20); Calcium 9.7 mg/dL (8.4-10.2); Carbon Dioxide 33 mmol/L (22-30); Chloride 101 mmol/L (98-107); Glucose 121 mg/dL (74-99); Non-African American GFR(CKD) >90 (>60 ml/min/1.73 sqM); Potassium 4.6 mmol/L (3.5-5.1); Sodium 139 mmol/L (137-145)
[2019-01-06] MEDS: IPRATROPIUM-ALBUTEROL 3 ML NEB INHALATION SCH ×2 (09:40→12:16)
[2019-01-06] MEDS: HEPARIN SODIUM,PORCINE 5,000 UNIT/ML 1 ML VIAL SQ SCH (10:24)
[2019-01-06] MEDS: LORATADINE 10 MG TAB PO SCH (10:25)
[2019-01-06] MEDS: HYDROcodone/APAP 5-325MG 1 EACH TAB PO PRN (10:25)
[2019-01-06] MEDS: THIAMINE 100 MG TAB PO SCH (10:25)
[2019-01-06] MEDS: NICOTINE 14MG/24HR PATCH TRANSDERM SCH (10:26)
--- NOTE | 2019-01-06 22:31 | DS ---
DISCHARGE SUMMARY DATE OF SERVICE: 01/06/2019 FINAL DIAGNOSES: 1. Acute alcohol intoxication, improved. 2. Acute alcoholic hepatitis, present on admission, improved. 3. Acute delirium tremens secondary to alcohol withdrawal. 4. Change in mental status with acute metabolic encephalopathy. 5. Left lower quadrant abdominal pain, improved. 6. Chest pain, possibly musculoskeletal, improved. 7. Acute bronchitis; no evidence of pneumonia. 8. Fall and musculoskeletal pain diffusely. 9. Hypertension. 10.Degenerative joint disease. 11.History of migraines. 12.History of pancreatitis. 13.History of anxiety, depression. 14.Continued ongoing nicotine dependence. DISCHARGE DISPOSITION: The patient will be discharged in stable condition with guarded prognosis. HISTORY OF PRESENT ILLNESS: This 43-year-old gentleman with a past medical history of multiple medical problems, admitted with significant alcohol intoxication as well as multiple other complications, as stated above, was treated with symptomatic treatment, CIWA protocol. Patient improved significantly. Patient is keen on going home. On exam, vitals are stable. CARDIOVASCULAR SYSTEM: S1, S2 muffled. ABDOMEN: Soft. NERVOUS SYSTEM: No focal deficit. CHEST: Clear to auscultation. DISCHARGE ADVICE AND MEDICATIONS: 1. Diet is cardiac. 2. Activity limited until followup. 3. Follow up with Corrine Andrea in 2-3 days. 4. No ETOH. 5. Attend AA and alcohol rehab. 6. Claritin 10 mg daily. 7. [place] 10 mg q.i.d. p.r.n. 8. Ativan 1 mg t.i.d. p.r.n. 9. Folic acid 1 mg daily. 10.Multivitamins 1 p.o. daily. 11.Thiamine 100 mg p.o. daily. Once again, the patient will be discharged in stable condition with guarded prognosis. MMODL / IJN: [id number] /
== END 2019-01-06 13:48 | disposition home or self-care (01) | DRG 896 ==
LOC: EC 18:50 → 4SSUR 20:42 → OBSVTOIN 01-05 11:01
PROVIDERS: ADMIT Hospitalist; ATTEND Hospitalist
DX: F10.231 Alcohol dependence with withdrawal delirium (principal); G93.41 Metabolic encephalopathy; F17.200 Nicotine dependence, unspecified, uncomplicated; F32.9 Major depressive disorder, single episode, unspecified; F40.240 Claustrophobia; G89.29 Other chronic pain; I10 Essential (primary) hypertension; J20.9 Acute bronchitis, unspecified; K70.10 Alcoholic hepatitis without ascites; G43.909 Migraine, unspecified, not intractable, without status migrainosus; M19.90 Unspecified osteoarthritis, unspecified site; M43.10 Spondylolisthesis, site unspecified; Y90.8 Blood alcohol level of 240 mg/100 ml or more; Z82.49 Family history of ischemic heart disease and other diseases of the circulatory system; Z88.6 Allergy status to analgesic agent; Z88.5 Allergy status to narcotic agent; Z90.49 Acquired absence of other specified parts of digestive tract; Z98.890 Other specified postprocedural states
CPT/HCPCS: 36415; 70450; 71045; 72125; 80048; 80053; 80320; 81003; 83735; 84100; 84484; 85025; 85610; 93005; 96365; 96366; 99285

== ENCOUNTER 2019-02-11 07:49 | Inpatient (IN) | payer OTHER ==
[2019-02-11] MEDS ORDERED: MULTIVITAMINS, THERA 1 EACH TAB PO STA (08:21)
[2019-02-11] MEDS ORDERED: THIAMINE 100 MG/ML 2 ML VIAL IVPB STA (08:21)
[2019-02-11] MEDS ORDERED: FOLIC ACID 1 MG TAB PO STA (08:21)
[2019-02-11] MEDS ORDERED: LORazepam 2 MG/ML INJ IV STA (08:21)
[2019-02-11] MEDS ORDERED: LORazepam 2 MG/ML INJ IV PRN ×2 (08:21)
[2019-02-11] MEDS ORDERED: SODIUM CHLORIDE 0.9% 1,000 ML IV STA ×2 (08:21)
[2019-02-11] MEDS: DEXTROSE 5%-0.45% NACL 1,000 ML IV SCH ×2 (08:36→15:06)
[2019-02-11] MEDS: DIAZEPAM 5 MG/ML 2 ML INJ IVP SCH ×3 (08:38→23:53)
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
[2019-02-11 09:07] LABS: Basophils % (A) 0 %; Eosinophils % (A) 0 %; Lymphocytes # (A) 1.1 k/uL (1.0-4.8); Lymphocytes % (A) 16 %; MCH 34.6 pg (25.0-35.0); MCHC 34.2 g/dL (31.0-37.0); Mean Platelet Volume 8.4; Monocytes # (A) 0.6 k/uL (0-1.0); Monocytes % (A) 8 %; Neutrophils % (A) 74 %; Platelet Count 162 k/uL (150-450); RBC 3.47 m/uL (4.30-5.90); RDW 12.5 % (11.5-15.5); WBC 6.7 k/uL (3.8-10.6)
[2019-02-11 09:15] LABS: MCV 101.1 fL (80.0-100.0)
[2019-02-11 09:17] LABS: ALT 32 U/L (4-49); AST 88 U/L (17-59); African American GFR (CKD) >90 (>60 ml/min/1.73 sqM); Albumin 4.5 g/dL (3.5-5.0); Alcohol <10 mg/dL; Alkaline Phosphatase 66 U/L (38-126); Anion Gap 12 mmol/L; Blood Urea Nitrogen 19 mg/dL (9-20); Calcium 9.8 mg/dL (8.4-10.2); Carbon Dioxide 23 mmol/L (22-30); Chloride 110 mmol/L (98-107); Glucose 78 mg/dL (74-99); Magnesium 1.8 mg/dL (1.6-2.3); Non-African American GFR(CKD) >90 (>60 ml/min/1.73 sqM); Phosphorus 4.4 mg/dL (2.5-4.5); Sodium 145 mmol/L (137-145); Total Bilirubin 1.5 mg/dL (0.2-1.3); Total Protein 7.2 g/dL (6.3-8.2)
--- NOTE | 2019-02-11 09:43 | CT ---
EXAMINATION TYPE: CT brain saroj malagon con DATE OF EXAM: 02/11/2019 COMPARISON: 01/03/2019 HISTORY: Fall with posterior injury yesterday. CT DLP: 1393.9 mGycm, Automated exposure control for dose reduction was used. CONTRAST: Patient injected with 0 mL of Isovue 300. CT of the brain is performed utilizing 3 mm thick sections through the posterior fossa and 3 mm thick sections through the remaining calvarium. Study is performed within 24 hours of arrival to the hospital. No abnormal hyperdensity is present to suggest an acute intracranial hemorrhage. No mass lesion is evident. No acute infarcts are evident. Ventricles and sulci are appropriate for the patient age. Paranasal sinuses and mastoid air cells within the [id number] are clear. IMPRESSIONS: 1. Normal CT brain. CT cervical spine. COMPARISON: None CT of the cervical spine is performed in the axial plane at 2 mm thick sections. Reconstructed image s in the coronal, and sagittal plane are reviewed on the computer. No acute fractures are evident. There is a kyphosis centered at approximately C6. No spinal canal narrowing is evident. Mild diffuse disc space narrowing may be present. Vertebral body heights are preserved. No spinal canal stenosis is evident. Uncovertebral joint hypertrophy and facet hypertrophy at C3-4 has mild right foraminal stenosis. Left facet hypertrophy at C4-5 has mild foraminal narrowing. IMPRESSIONS: 1. Mild facet hypertrophy with some foraminal narrowing upper cervical spine discussed above. 2. Cervical kyphosis present previously. 3. No acute changes evident.
[2019-02-11] MEDS ORDERED: THIAMINE 200 MG in SODIUM CHLORIDE 0.9% 100 ML IVPB ONE (11:15)
[2019-02-11] MEDS ORDERED: NALOXONE 0.4 MG/ML 1 ML VIAL IV PRN (12:23)
[2019-02-11] MEDS ORDERED: ACETAMINOPHEN TAB 500 MG TAB PO PRN (15:33)
[2019-02-11] MEDS ORDERED: TEMAZEPAM 15 MG CAP PO PRN (15:33)
[2019-02-11] MEDS: THIAMINE 100 MG TAB PO SCH (16:56)
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
[2019-02-11] MEDS ORDERED: HALOPERIDOL LACTATE 5 MG/ML 1 ML VIAL IM PRN (19:10)
[2019-02-11] MEDS ORDERED: LORazepam 1 MG TAB PO PRN (19:54)
[2019-02-11 21:53] LABS: Appearance,Urine Clear (Clear); Bilirubin,Urine Negative (Negative); Blood,Urine Negative (Negative); Color,Urine Yellow; Glucose,Urine (UA) 3+ (Negative); Ketones,Urine 1+ (Negative); Leukocyte Esterase,Urine Negative (Negative); Mucus,Urine Moderate /hpf; Nitrite,Urine Negative (Negative); Protein,Urine 1+ (Negative); RBC,Urine <1 /hpf (0-5); Specific Gravity,Urine 1.029 (1.001-1.035); Squamous Epithelial Cell,Urine <1 /hpf (0-4); WBC,Urine <1 /hpf (0-5)
[2019-02-11 21:58] LABS: Amphetamine Screen,Urine Not Detected (NotDetected); Barbiturate Screen,Urine Not Detected (NotDetected); Benzodiazepines Screen,Urine Detected (NotDetected); Cocaine Screen,Urine Not Detected (NotDetected); Methadone Screen, Urine Not Detected (NotDetected); Opiate Screen,Urine Not Detected (NotDetected); Oxycodone Screen, Urine Not Detected (NotDetected); Phencyclidine Screen,Urine Not Detected (NotDetected); Tricyclic Antidepressant,Urine Not Detected (NotDetected); Urn Cannabinoid Scrn Not Detected (NotDetected)
[2019-02-11] MEDS: DICYCLOMINE 20 MG TAB PO SCH (22:02)
[2019-02-11] MEDS: PROMETHAZINE 25 MG TAB PO SCH (22:02)
[2019-02-11] MEDS: cloNIDine HCL 0.1 MG TAB PO SCH (22:02)
[2019-02-11] MEDS: hydrOXYzine PAMOATE 25 MG CAP PO SCH (22:03)
[2019-02-11] MEDS: LOPERAMIDE 2 MG CAP PO SCH (22:04)
[2019-02-12] MEDS: DEXTROSE 5%-0.45% NACL 1,000 ML IV SCH ×4 (00:36→17:03)
[2019-02-12] MEDS: LORazepam 2 MG/ML INJ IV PRN ×2 (04:52→13:59)
[2019-02-12 07:48] LABS: Basophils % (A) 0 %; Eosinophils # (A) 0.1 k/uL (0-0.7); Eosinophils % (A) 2 %; HCT 34.6 % (39.0-53.0); HGB 11.5 gm/dL (13.0-17.5); Lymphocytes # (A) 1.1 k/uL (1.0-4.8); Lymphocytes % (A) 25 %; MCH 34.8 pg (25.0-35.0); MCHC 33.2 g/dL (31.0-37.0); MCV 104.8 fL (80.0-100.0); Macrocytosis Slight; Mean Platelet Volume 8.5; Monocytes # (A) 0.3 k/uL (0-1.0); Monocytes % (A) 7 %; Neutrophils # (A) 2.8 k/uL (1.3-7.7); Neutrophils % (A) 64 %; Platelet Count 113 k/uL (150-450); RBC 3.31 m/uL (4.30-5.90); RDW 12.5 % (11.5-15.5); WBC 4.4 k/uL (3.8-10.6)
[2019-02-12] MEDS: MULTIVITAMINS, THERA 1 EACH TAB PO SCH (07:52)
[2019-02-12] MEDS: hydrOXYzine PAMOATE 25 MG CAP PO SCH ×3 (07:52→21:29)
[2019-02-12] MEDS: cloNIDine HCL 0.1 MG TAB PO SCH ×3 (07:53→21:30)
[2019-02-12] MEDS: THIAMINE 100 MG TAB PO SCH ×2 (07:53→16:54)
[2019-02-12] MEDS: FOLIC ACID 1 MG TAB PO SCH (07:53)
[2019-02-12] MEDS: PANTOPRAZOLE 40 MG/10 ML VIAL IV SCH (07:53)
[2019-02-12] MEDS: NICOTINE 14MG/24HR PATCH TRANSDERM SCH (07:53)
[2019-02-12] MEDS: LOPERAMIDE 2 MG CAP PO SCH ×3 (07:54→21:25)
[2019-02-12] MEDS: DIAZEPAM 5 MG/ML 2 ML INJ IVP SCH ×3 (07:54→23:51)
[2019-02-12] MEDS: ENOXAPARIN 40 MG/0.4 ML SYRINGE SQ SCH (07:59)
[2019-02-12] MEDS: DICYCLOMINE 20 MG TAB PO SCH ×3 (07:59→21:29)
[2019-02-12 08:00] LABS: ALT 34 U/L (4-49); AST 65 U/L (17-59); African American GFR (CKD) >90 (>60 ml/min/1.73 sqM); Albumin 3.2 g/dL (3.5-5.0); Alkaline Phosphatase 107 U/L (38-126); Anion Gap 5 mmol/L; Blood Urea Nitrogen 10 mg/dL (9-20); Calcium 8.7 mg/dL (8.4-10.2); Carbon Dioxide 24 mmol/L (22-30); Chloride 109 mmol/L (98-107); Glucose 103 mg/dL (74-99); Magnesium 1.8 mg/dL (1.6-2.3); Non-African American GFR(CKD) >90 (>60 ml/min/1.73 sqM); Phosphorus 3.1 mg/dL (2.5-4.5); Potassium 3.7 mmol/L (3.5-5.1); Sodium 138 mmol/L (137-145); Total Bilirubin 1.2 mg/dL (0.2-1.3); Total Protein 5.7 g/dL (6.3-8.2)
[2019-02-12] MEDS: PROMETHAZINE 25 MG TAB PO SCH ×3 (08:00→21:29)
[2019-02-12] MEDS: diphenhydrAMINE ELIXIR 25 MG/10 ML CUP PO SCH (08:00)
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
[2019-02-12] MEDS: HYDROcodone/APAP 5-325MG 1 EACH TAB PO PRN (20:55)
[2019-02-13] MEDS: DEXTROSE 5%-0.45% NACL 1,000 ML IV SCH ×3 (02:22→21:36)
[2019-02-13] MEDS: hydrOXYzine PAMOATE 25 MG CAP PO SCH ×3 (08:57→21:37)
[2019-02-13] MEDS: cloNIDine HCL 0.1 MG TAB PO SCH ×3 (08:58→21:38)
[2019-02-13] MEDS: LOPERAMIDE 2 MG CAP PO SCH ×3 (08:58→21:12)
[2019-02-13] MEDS: FOLIC ACID 1 MG TAB PO SCH (08:58)
[2019-02-13] MEDS: PANTOPRAZOLE 40 MG/10 ML VIAL IV SCH (08:58)
[2019-02-13] MEDS: MULTIVITAMINS, THERA 1 EACH TAB PO SCH (08:59)
[2019-02-13] MEDS: DIAZEPAM 5 MG/ML 2 ML INJ IVP SCH ×2 (08:59→21:41)
[2019-02-13] MEDS: NICOTINE 14MG/24HR PATCH TRANSDERM SCH (08:59)
[2019-02-13] MEDS: THIAMINE 100 MG TAB PO SCH ×2 (08:59→17:49)
[2019-02-13] MEDS: diphenhydrAMINE ELIXIR 25 MG/10 ML CUP PO SCH (09:04)
[2019-02-13] MEDS: PROMETHAZINE 25 MG TAB PO SCH ×3 (09:05→21:38)
[2019-02-13] MEDS: HYDROcodone/APAP 5-325MG 1 EACH TAB PO PRN ×2 (09:05→17:52)
[2019-02-13] MEDS: ENOXAPARIN 40 MG/0.4 ML SYRINGE SQ SCH (09:06)
[2019-02-13] MEDS: DICYCLOMINE 20 MG TAB PO SCH ×3 (09:06→22:02)
--- NOTE | 2019-02-13 20:33 | PN ---
PROGRESS NOTE DATE OF SERVICE: 02/13/2019 This 43-year-old gentleman who was admitted with acute delirium tremens and alcohol withdrawal is being closely monitored. No chest pain. No palpitations. Patient is slightly unsteady. PHYSICAL EXAM: Alert and oriented x3. Pulse 53, blood pressure 105/57, respiration 17, temperature 98, pulse ox 98% on room air. HEENT: Conjunctivae normal. Oral mucosa moist. NECK: No jugular venous distention. No lymph node enlargement. CARDIOVASCULAR: S1, S2. RESPIRATORY: Diminished breath sounds at the bases. No rhonchi, no crackles. ABDOMEN: Soft, nontender. LEGS: No edema, no swelling. NERVOUS SYSTEM: Mild diffuse weakness and as well as tremors also present. LABS: WBC 4.2, hemoglobin 11.5, platelets are 113. UA noted. ASSESSMENT: 1. Acute alcohol withdrawal with acute delirium tremens. 2. Anemia, macrocytic secondary to alcohol. 3. Increased AST, increased bilirubin, possibly alcoholic hepatitis. 4. Change in mental status, acute metabolic encephalopathy, multifactorial. 5. Gait dysfunction. 6. Hypertension. 7. History of degenerative joint disease. 8. History of pancreatitis. 9. History of migraines. 10.History of previous frostbite. 11.History of peripheral neuropathy. 12.History of anxiety, depression. 13.History of claustrophobia. 14.History of nicotine dependence history. 15.History of EtOH. 16.FULL CODE. RECOMMENDATIONS AND DISCUSSION: This 43-year-old gentleman who presented with multiple complex medical issues, we will monitor the patient closely, continue the current medication, continue symptomatic treatment. Otherwise, at this time I recommend continue with CIWA protocol, increase ambulation, supplement vitamins and further recommendations to follow. Please note, the patient is originally from retirement at this time. MMODL / IJN: [id number] /
[2019-02-13] MEDS: LORazepam 2 MG/ML INJ IV PRN (21:37)
[2019-02-13 21:58] VITALS: PULSE 54; RESP 18
[2019-02-14] MEDS: DIAZEPAM 5 MG/ML 2 ML INJ IVP SCH ×2 (02:10→08:13)
[2019-02-14 05:07] VITALS: BP 105/58; TEMP 98.1
[2019-02-14] MEDS ORDERED: PANTOPRAZOLE 40 MG TABLET PO SCH (07:30)
[2019-02-14] MEDS: NICOTINE 14MG/24HR PATCH TRANSDERM SCH (08:10)
[2019-02-14] MEDS: THIAMINE 100 MG TAB PO SCH (08:10)
[2019-02-14] MEDS: HYDROcodone/APAP 5-325MG 1 EACH TAB PO PRN (08:11)
[2019-02-14] MEDS: FOLIC ACID 1 MG TAB PO SCH (08:11)
[2019-02-14] MEDS: MULTIVITAMINS, THERA 1 EACH TAB PO SCH (08:11)
[2019-02-14] MEDS: LOPERAMIDE 2 MG CAP PO SCH (08:12)
[2019-02-14] MEDS: DEXTROSE 5%-0.45% NACL 1,000 ML IV SCH (08:33)
[2019-02-14] MEDS: cloNIDine HCL 0.1 MG TAB PO SCH (08:33)
[2019-02-14] MEDS: DICYCLOMINE 20 MG TAB PO SCH (08:33)
[2019-02-14] MEDS: diphenhydrAMINE ELIXIR 25 MG/10 ML CUP PO SCH (08:34)
[2019-02-14] MEDS: hydrOXYzine PAMOATE 25 MG CAP PO SCH (08:34)
[2019-02-14] MEDS: PROMETHAZINE 25 MG TAB PO SCH (08:34)
[2019-02-14] MEDS: ENOXAPARIN 40 MG/0.4 ML SYRINGE SQ SCH (08:34)
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
== END 2019-02-14 13:34 | disposition home or self-care (01) | DRG 896 ==
LOC: EC 07:49 → 5NMEDONC 12:24
PROVIDERS: ADMIT Hospitalist; ATTEND Hospitalist
DX: F10.231 Alcohol dependence with withdrawal delirium (principal); G93.41 Metabolic encephalopathy; D63.8 Anemia in other chronic diseases classified elsewhere; Y90.0 Blood alcohol level of less than 20 mg/100 ml; K70.10 Alcoholic hepatitis without ascites; G62.9 Polyneuropathy, unspecified; M54.9 Dorsalgia, unspecified; R26.9 Unspecified abnormalities of gait and mobility; R21 Rash and other nonspecific skin eruption; I10 Essential (primary) hypertension; G43.909 Migraine, unspecified, not intractable, without status migrainosus; F32.9 Major depressive disorder, single episode, unspecified; F41.9 Anxiety disorder, unspecified; M19.90 Unspecified osteoarthritis, unspecified site; F17.210 Nicotine dependence, cigarettes, uncomplicated; Z71.6 Tobacco abuse counseling; Z79.899 Other long term (current) drug therapy; Z87.81 Personal history of (healed) traumatic fracture; Z88.6 Allergy status to analgesic agent; Z88.5 Allergy status to narcotic agent; Z81.1 Family history of alcohol abuse and dependence; Z82.49 Family history of ischemic heart disease and other diseases of the circulatory system; Z83.49 Family history of other endocrine, nutritional and metabolic diseases; Z87.19 Personal history of other diseases of the digestive system
CPT/HCPCS: 36415; 70450; 72125; 80053; 80306; 80320; 81001; 82140; 83690; 83735; 84100; 85025; 96361; 96365; 96375; 99285

== ENCOUNTER 2019-11-27 18:23 | Emergency (ER) | payer OTHER ==
[2019-11-27 18:30] VITALS: BP 114/79; PULSE 75; RESP 20; TEMP 98
[2019-11-27] MEDS ORDERED: KETOROLAC 15 MG/ML 1 ML VIAL IM STA (18:52)
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
== END 2019-11-27 19:02 | disposition home or self-care (01) ==
LOC: EC 18:23
DX: M25.531 Pain in right wrist (principal); M54.9 Dorsalgia, unspecified; F17.200 Nicotine dependence, unspecified, uncomplicated; Z79.899 Other long term (current) drug therapy; Z88.6 Allergy status to analgesic agent; Z88.5 Allergy status to narcotic agent
CPT/HCPCS: 99283; 96372; J1885

== ENCOUNTER 2019-12-20 22:53 | Emergency (ER) | payer OTHER ==
[2019-12-20 23:29] VITALS: BP 112/72; PULSE 65; RESP 18; TEMP 97.9
[2019-12-20] MEDS ORDERED: ORPHENADRINE 30 MG/ML 2 ML VIAL IM STA (23:52)
[2019-12-20] MEDS ORDERED: KETOROLAC 15 MG/ML 1 ML VIAL IM STA (23:52)
[2019-12-20] MEDS ORDERED: ACET/COD 300 MG/30 MG STARTER PACK 6 TAB BTL PO STA (23:56)
[2019-12-20] MEDS ORDERED: HYDROmorphone 0.5 MG/0.5 ML SYRINGE IM STA (23:56)
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
== END 2019-12-21 01:14 | disposition home or self-care (01) ==
LOC: EC 22:53
DX: M54.9 Dorsalgia, unspecified (principal); I10 Essential (primary) hypertension; F17.200 Nicotine dependence, unspecified, uncomplicated; Z88.5 Allergy status to narcotic agent; Z88.6 Allergy status to analgesic agent
CPT/HCPCS: 99283; 96372 ×2; J2360; J1170

== ENCOUNTER 2020-04-23 05:33 | Emergency (ER) | payer OTHER ==
[2020-04-23 05:41] VITALS: PULSE 73; TEMP 98
[2020-04-23] MEDS ORDERED: SODIUM CHLORIDE 0.9% 1,000 ML IV STA (06:39)
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
[2020-04-23 06:50] LABS: Basophils # (A) 0.1 k/uL (0-0.2); Basophils % (A) 1 %; Eosinophils # (A) 0.2 k/uL (0-0.7); Eosinophils % (A) 3 %; HCT 46.9 % (39.0-53.0); HGB 16.4 gm/dL (13.0-17.5); Lymphocytes # (A) 3.7 k/uL (1.0-4.8); Lymphocytes % (A) 56 %; MCH 32.8 pg (25.0-35.0); MCV 93.5 fL (80.0-100.0); Mean Platelet Volume 6.9; Monocytes # (A) 0.4 k/uL (0-1.0); Monocytes % (A) 5 %; Neutrophils # (A) 2.2 k/uL (1.3-7.7); Neutrophils % (A) 33 %; Platelet Count 274 k/uL (150-450); RBC 5.02 m/uL (4.30-5.90); RDW 12.8 % (11.5-15.5); WBC 6.6 k/uL (3.8-10.6)
[2020-04-23 07:02] LABS: ALT 20 U/L (4-49); AST 27 U/L (17-59); African American GFR (CKD) >90 (>60 ml/min/1.73 sqM); Albumin 4.7 g/dL (3.5-5.0); Alkaline Phosphatase 104 U/L (38-126); Anion Gap 13 mmol/L; Blood Urea Nitrogen 6 mg/dL (9-20); Calcium 9.2 mg/dL (8.4-10.2); Carbon Dioxide 23 mmol/L (22-30); Chloride 109 mmol/L (98-107); Glucose 95 mg/dL (74-99); Lipase 1353 U/L (23-300); Magnesium 2.1 mg/dL (1.6-2.3); Non-African American GFR(CKD) >90 (>60 ml/min/1.73 sqM); Potassium 4.2 mmol/L (3.5-5.1); Sodium 145 mmol/L (137-145); Total Bilirubin 0.4 mg/dL (0.2-1.3); Total Protein 7.7 g/dL (6.3-8.2)
--- NOTE | 2020-04-23 07:08 | XR ---
EXAMINATION TYPE: XR chest 2V DATE OF EXAM: 04/23/2020 COMPARISON: 12/19/2018 HISTORY: Chest pain TECHNIQUE: Frontal and lateral views of the chest are obtained. FINDINGS: The lungs are clear consolidative, interstitial masslike opacity. There is no pleural effusion, pleural thickening or pneumothorax. The heart, pulmonary vasculature, mediastinum and hilum appear normal. The osseous structures are unr emarkable. IMPRESSION: No acute cardiopulmonary disease.
[2020-04-23 07:13] LABS: INR 0.9 (<1.2); Partial Thromboplastin Time 23.4 sec (22.0-30.0); Prothrombin Time 9.9 sec (9.0-12.0)
[2020-04-23 07:26] VITALS: BP 106/78
[2020-04-23 07:27] VITALS: RESP 20
== END 2020-04-23 07:34 | disposition left against medical advice (07) ==
LOC: EC 05:33
DX: R74.8 Abnormal levels of other serum enzymes (principal); R07.9 Chest pain, unspecified; I10 Essential (primary) hypertension; F17.200 Nicotine dependence, unspecified, uncomplicated; F41.9 Anxiety disorder, unspecified; M19.90 Unspecified osteoarthritis, unspecified site; G89.29 Other chronic pain; M54.9 Dorsalgia, unspecified; Z95.5 Presence of coronary angioplasty implant and graft; Z90.09 Acquired absence of other part of head and neck
CPT/HCPCS: 36415; 71046; 80053; 83690; 83735; 84484; 85025; 85610; 85730; 93005; 99285

== ENCOUNTER 2021-01-18 18:33 | Emergency (ER) | payer OTHER ==
[2021-01-18 18:45] VITALS: TEMP 98.9
[2021-01-18] MEDS ORDERED: SODIUM CHLORIDE 0.9% 1,000 ML IV STA (19:10)
[2021-01-18] MEDS ORDERED: LORazepam 2 MG/ML INJ IV STA (19:14)
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
[2021-01-18 19:48] LABS: Basophils # (A) 0.1 k/uL (0-0.2); Basophils % (A) 1 %; Eosinophils # (A) 0.3 k/uL (0-0.7); Eosinophils % (A) 4 %; HCT 45.2 % (39.0-53.0); HGB 15.4 gm/dL (13.0-17.5); Lymphocytes # (A) 3.5 k/uL (1.0-4.8); Lymphocytes % (A) 46 %; MCH 34.7 pg (25.0-35.0); MCV 102.2 fL (80.0-100.0); Mean Platelet Volume 7.3; Monocytes # (A) 0.4 k/uL (0-1.0); Monocytes % (A) 6 %; Neutrophils # (A) 3.2 k/uL (1.3-7.7); Neutrophils % (A) 42 %; Platelet Count 231 k/uL (150-450); RBC 4.43 m/uL (4.30-5.90); RDW 12.3 % (11.5-15.5); WBC 7.6 k/uL (3.8-10.6)
[2021-01-18 19:58] LABS: ALT 29 U/L (4-49); AST 57 U/L (17-59); African American GFR (CKD) >90 (>60 ml/min/1.73 sqM); Albumin 4.4 g/dL (3.5-5.0); Alkaline Phosphatase 142 U/L (38-126); Amylase 90 U/L (30-110); Anion Gap 13 mmol/L; Blood Urea Nitrogen 8 mg/dL (9-20); Calcium 9.4 mg/dL (8.4-10.2); Carbon Dioxide 22 mmol/L (22-30); Chloride 104 mmol/L (98-107); Glucose 83 mg/dL (74-99); INR 0.9 (<1.2); Lipase 337 U/L (23-300); Non-African American GFR(CKD) >90 (>60 ml/min/1.73 sqM); Partial Thromboplastin Time 23.7 sec (22.0-30.0); Potassium 4.3 mmol/L (3.5-5.1); Prothrombin Time 9.8 sec (9.0-12.0); Sodium 139 mmol/L (137-145); Total Bilirubin 0.3 mg/dL (0.2-1.3); Total Protein 7.3 g/dL (6.3-8.2)
[2021-01-18 20:00] LABS: Appearance,Urine Clear (Clear); Bilirubin,Urine Negative (Negative); Blood,Urine Negative (Negative); Color,Urine Light Yellow; Glucose,Urine (UA) Negative (Negative); Ketones,Urine Negative (Negative); Leukocyte Esterase,Urine Negative (Negative); Nitrite,Urine Negative (Negative); Protein,Urine Negative (Negative); Specific Gravity,Urine 1.002 (1.001-1.035); Urobilinogen,Urine <2.0 mg/dL (<2.0)
[2021-01-18 20:04] LABS: Alcohol 249 mg/dL
--- NOTE | 2021-01-18 20:48 | CT ---
EXAMINATION TYPE: CT abdomen pelvis w con DATE OF EXAM: 01/18/2021 COMPARISON: 08/16/2018 HISTORY: abd pain CT DLP: 760 mGycm Automated exposure control for dose reduction was used. CONTRAST: Performed with IV Contrast, patient injected with 100 mL of Isovue 370. Lung bases are clear. There is no pleural effusion. Heart size is normal. There is no pericardial eff usion. Liver spleen stomach pancreas gallbladder appear normal. The bile ducts are not dilated. There is no adrenal mass. Kidneys show satisfactory contrast opacification. There is no hydronephrosi s. Ureters are not dilated. There is no retroperitoneal adenopathy. Bladder distends smoothly. There is no inguinal hernia. There are prostatic calcifications. There is no free fluid in the pelvis. Ther e is no evidence of a pelvic mass. Urinary bladder is distended and measures 16 cm in length. Delayed images show normal renal excretion. Appendix is medial and appears normal. There is no mesent etrri edema. There is no ascites or free air. There is no bowel obstruction. The lumbar vertebra have normal alignment. There is no compression fracture. Disc spaces are fairly n ormal. Bony pelvis is intact. The hip joints are intact. IMPRESSION: Dilated urinary bladder suggestive of some degree of bladder outlet obstruction. No renal obstruction . Normal appendix.
[2021-01-18 21:58] VITALS: BP 113/71; PULSE 84; RESP 19
== END 2021-01-18 21:57 | disposition home or self-care (01) ==
LOC: EC 18:33
DX: R10.13 Epigastric pain (principal); M54.9 Dorsalgia, unspecified; F10.10 Alcohol abuse, uncomplicated; I10 Essential (primary) hypertension; M19.90 Unspecified osteoarthritis, unspecified site; F41.9 Anxiety disorder, unspecified; F32.A Depression, unspecified; F17.200 Nicotine dependence, unspecified, uncomplicated; Y90.8 Blood alcohol level of 240 mg/100 ml or more; Z88.1 Allergy status to other antibiotic agents; Z88.5 Allergy status to narcotic agent
CPT/HCPCS: 99284; 96374; 36415; 93005; 80053; 82150; 83605; 83690; 84484; 85025; 85610; 85730; 81003; 74177; G0480; J2060; 80320

== ENCOUNTER 2021-03-21 19:02 | Emergency (ER) | payer OTHER ==
[2021-03-21 19:30] VITALS: BP 122/88; PULSE 103; RESP 20; TEMP 98.6
[2021-03-21] MEDS ORDERED: HYDROcodone/APAP 7.5-325MG 1 EACH TAB PO ONE (21:01)
--- NOTE | 2021-03-21 21:52 | US ---
EXAMINATION TYPE: US venous doppler duplex LE LT DATE OF EXAM: 03/21/2021 9:01 PM COMPARISON: NONE CLINICAL HISTORY: leg cramp. Left lower extremity cramping SIDE PERFORMED: Left TECHNIQUE: The lower extremity deep venous system is examined utilizing real time linear array sonog priscilla with graded compression, doppler sonography and color-flow sonography. VESSELS IMAGED: Common Femoral Vein Deep Femoral Vein Greater Saphenous Vein * Femoral Vein Popliteal Vein Small Saphenous Vein * Proximal Calf Veins (* superficial vessels) Grayscale, color doppler, spectral doppler imaging performed of the deep veins of the lower extremiti es. There is normal flow, compressibility, vascular waveforms. Left Leg: Negative for DVT IMPRESSION: No evidence of deep vein thrombosis of the left lower extremity.
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
== END 2021-03-21 23:27 | disposition home or self-care (01) ==
LOC: EC 19:02
DX: S86.812A Strain of other muscle(s) and tendon(s) at lower leg level, left leg, initial encounter (principal); I10 Essential (primary) hypertension; M19.90 Unspecified osteoarthritis, unspecified site; F17.200 Nicotine dependence, unspecified, uncomplicated; F32.A Depression, unspecified; F41.9 Anxiety disorder, unspecified; Z79.899 Other long term (current) drug therapy; W19.XXXA Unspecified fall, initial encounter
CPT/HCPCS: 99284

== ENCOUNTER 2022-03-03 14:42 | Emergency (ER) | payer OTHER ==
[2022-03-03] MEDS ORDERED: HYDROmorphone 0.5 MG/0.5 ML SYRINGE IM STA (15:22)
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
[2022-03-03 16:28] VITALS: BP 120/67; PULSE 71; RESP 18; TEMP 98
--- NOTE | 2022-03-03 17:00 | ED ---
Disposition Clinical Impression: Pain, dental Disposition: HOME SELF-CARE Condition: Good Instructions (If sedation given, give patient instructions): Toothache (ED) Additional Instructions: follow up with dentist Prescriptions: clindamycin HCL [Cleocin] 450 mg PO Q6H 10 Days #120 cap HYDROcodone/APAP 5-325MG [[place] 5-325] 1 tab PO Q6HR PRN 3 Days #12 tab PRN Reason: Severe Pain Is patient prescribed a controlled substance at d/c from ED?: Yes If prescribed controlled substance>3 days was MAPS reviewed?: Prescribed <3 Days
== END 2022-03-03 16:08 | disposition home or self-care (01) ==
LOC: EC 14:42
DX: K08.89 Other specified disorders of teeth and supporting structures (principal); I10 Essential (primary) hypertension; M19.90 Unspecified osteoarthritis, unspecified site; F41.9 Anxiety disorder, unspecified; F32.A Depression, unspecified; Z88.0 Allergy status to penicillin; Z88.6 Allergy status to analgesic agent; Z79.899 Other long term (current) drug therapy
CPT/HCPCS: 99282; 96372; J1170

== ENCOUNTER 2022-05-10 20:28 | Emergency (ER) | payer OTHER ==
[2022-05-10 20:54] VITALS: TEMP 98.2
[2022-05-10 21:13] VITALS: RESP 16
[2022-05-10] MEDS ORDERED: IBUPROFEN 600 MG TAB PO STA (21:20)
[2022-05-10] MEDS ORDERED: AMOXIC-POT CLAV 875-125MG 1 EACH TAB PO STA (21:21)
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
[2022-05-10 21:34] VITALS: PULSE 68
[2022-05-10 21:43] VITALS: BP 130/68
== END 2022-05-10 21:43 | disposition home or self-care (01) ==
LOC: EC 20:28
DX: K04.7 Periapical abscess without sinus (principal); I10 Essential (primary) hypertension; F41.9 Anxiety disorder, unspecified; F32.A Depression, unspecified; F17.200 Nicotine dependence, unspecified, uncomplicated; Z79.899 Other long term (current) drug therapy; Z88.0 Allergy status to penicillin; Z88.5 Allergy status to narcotic agent; Z88.8 Allergy status to other drugs, medicaments and biological substances
CPT/HCPCS: 99282

== ENCOUNTER 2022-05-23 18:44 | Emergency (ER) | payer OTHER ==
[2022-05-23 19:59] VITALS: TEMP 98.5
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
[2022-05-23 21:36] VITALS: BP 126/79; PULSE 82; RESP 16
== END 2022-05-23 21:39 | disposition home or self-care (01) ==
LOC: EC 18:44
DX: G47.62 Sleep related leg cramps (principal); I10 Essential (primary) hypertension; F41.9 Anxiety disorder, unspecified; F32.A Depression, unspecified; F17.200 Nicotine dependence, unspecified, uncomplicated; Z88.5 Allergy status to narcotic agent; Z88.8 Allergy status to other drugs, medicaments and biological substances; Z88.0 Allergy status to penicillin
CPT/HCPCS: 99282

== ENCOUNTER 2023-03-11 21:20 | Emergency (ER) | payer OTHER ==
[2023-03-11 22:13] VITALS: BP 148/94; PULSE 81; RESP 18; TEMP 98
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
[2023-03-11 22:26] LABS: Basophils # (A) 0.1 k/uL (0-0.2); Basophils % (A) 1 %; Eosinophils # (A) 0.1 k/uL (0-0.7); Eosinophils % (A) 2 %; HCT 47.9 % (39.0-53.0); Lymphocytes # (A) 3.2 k/uL (1.0-4.8); Lymphocytes % (A) 57 %; MCH 36.7 pg (25.0-35.0); MCHC 35.4 g/dL (31.0-37.0); MCV 103.5 fL (80.0-100.0); Macrocytosis Slight; Mean Platelet Volume 7.7; Monocytes # (A) 0.3 k/uL (0-1.0); Monocytes % (A) 5 %; Neutrophils # (A) 1.9 k/uL (1.3-7.7); Neutrophils % (A) 34 %; Platelet Count 201 k/uL (150-450); RBC 4.63 m/uL (4.30-5.90); RDW 12.9 % (11.5-15.5); WBC 5.6 k/uL (3.8-10.6)
[2023-03-11 22:36] LABS: ALT 45 U/L (4-49); AST 106 U/L (17-59); African American GFR (CKD) >90 (>60 ml/min/1.73 sqM); Albumin 4.9 g/dL (3.5-5.0); Alkaline Phosphatase 167 U/L (38-126); Amylase 76 U/L (30-110); Anion Gap 15 mmol/L; Blood Urea Nitrogen 5 mg/dL (9-20); Calcium 9.4 mg/dL (8.4-10.2); Carbon Dioxide 19 mmol/L (22-30); Chloride 112 mmol/L (98-107); Glucose 95 mg/dL (74-99); Lipase 333 U/L (23-300); Non-African American GFR(CKD) >90 (>60 ml/min/1.73 sqM); Potassium 4.1 mmol/L (3.5-5.1); Sodium 146 mmol/L (137-145); Total Bilirubin 0.6 mg/dL (0.2-1.3); Total Protein 8.1 g/dL (6.3-8.2)
[2023-03-11 22:59] LABS: Alcohol 481 mg/dL
[2023-03-11 22:59] LABS: Appearance,Urine Clear (Clear); Bilirubin,Urine Negative (Negative); Blood,Urine Negative (Negative); Color,Urine Colorless; Glucose,Urine (UA) Negative (Negative); Ketones,Urine Negative (Negative); Leukocyte Esterase,Urine Negative (Negative); Nitrite,Urine Negative (Negative); PH, Urine 6.5 (5.0-8.0); Protein,Urine Negative (Negative); Specific Gravity,Urine 1.003 (1.001-1.035); Urobilinogen,Urine <2.0 mg/dL (<2.0)
== END 2023-03-12 00:36 | disposition left against medical advice (07) ==
LOC: EC 21:20
DX: R07.9 Chest pain, unspecified (principal); I10 Essential (primary) hypertension; F17.200 Nicotine dependence, unspecified, uncomplicated; Z86.59 Personal history of other mental and behavioral disorders; Z88.0 Allergy status to penicillin; Z88.5 Allergy status to narcotic agent; Z88.6 Allergy status to analgesic agent; Z53.29 Procedure and treatment not carried out because of patient's decision for other reasons
CPT/HCPCS: 99284; 36415; 93005; 80053; 82150; 83690; 85025; 81003; G0480; 80320

== ENCOUNTER 2023-03-22 22:20 | Emergency (ER) | payer OTHER ==
[2023-03-22 22:33] VITALS: RESP 18; TEMP 97.8
[2023-03-22 22:58] LABS: Partial Thromboplastin Time 24.8 sec (22.0-30.0); Prothrombin Time 10.7 sec (10.0-12.5)
--- NOTE | 2023-03-22 23:04 | XR ---
EXAM: XR Chest, 2 Views CLINICAL HISTORY: ITS.REASON XR Reason: Chest Pain TECHNIQUE: Frontal and lateral views of the chest. COMPARISON: No relevant prior studies available. FINDINGS: Lungs: Unremarkable. No consolidation. Pleural space: Unremarkable. No pneumothorax. Heart: Unremarkable. No cardiomegaly. Mediastinum: Unremarkable. Normal mediastinal contour. Bones/joints: Unremarkable. No acute fracture. IMPRESSION: Normal chest x-rays.
[2023-03-22 23:06] LABS: Basophils # (A) 0.1 k/uL (0-0.2); Basophils % (A) 1 %; Eosinophils # (A) 0.1 k/uL (0-0.7); Eosinophils % (A) 2 %; HCT 44.5 % (39.0-53.0); HGB 15.3 gm/dL (13.0-17.5); Lymphocytes # (A) 3.3 k/uL (1.0-4.8); Lymphocytes % (A) 57 %; MCH 35.8 pg (25.0-35.0); MCHC 34.3 g/dL (31.0-37.0); MCV 104.6 fL (80.0-100.0); Macrocytosis Slight; Monocytes # (A) 0.5 k/uL (0-1.0); Monocytes % (A) 8 %; Neutrophils # (A) 1.7 k/uL (1.3-7.7); Neutrophils % (A) 30 %; Platelet Count 144 k/uL (150-450); RBC 4.26 m/uL (4.30-5.90); WBC 5.8 k/uL (3.8-10.6)
[2023-03-22 23:21] LABS: ALT 70 U/L (4-49); AST 143 U/L (17-59); African American GFR (CKD) >90 (>60 ml/min/1.73 sqM); Albumin 4.5 g/dL (3.5-5.0); Alkaline Phosphatase 152 U/L (38-126); Anion Gap 13 mmol/L; Blood Urea Nitrogen 4 mg/dL (9-20); Calcium 8.7 mg/dL (8.4-10.2); Carbon Dioxide 22 mmol/L (22-30); Chloride 109 mmol/L (98-107); Glucose 108 mg/dL (74-99); Lipase 285 U/L (23-300); Magnesium 1.9 mg/dL (1.6-2.3); Non-African American GFR(CKD) >90 (>60 ml/min/1.73 sqM); Potassium 3.8 mmol/L (3.5-5.1); Sodium 144 mmol/L (137-145); Total Bilirubin 0.6 mg/dL (0.2-1.3); Total Protein 7.3 g/dL (6.3-8.2)
[2023-03-22 23:39] LABS: Alcohol 521 mg/dL
[2023-03-22] MEDS: ACETAMINOPHEN TAB 500 MG TAB PO STA (23:52)
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
[2023-03-23] MEDS: HYDROmorphone 1 MG/ML 1 ML SYRINGE IVP STA (01:56)
[2023-03-23 02:25] VITALS: BP 108/63; PULSE 81
== END 2023-03-23 02:01 | disposition home or self-care (01) ==
LOC: EC 22:20
DX: R07.89 Other chest pain (principal); F10.129 Alcohol abuse with intoxication, unspecified; I10 Essential (primary) hypertension; M19.90 Unspecified osteoarthritis, unspecified site; F17.200 Nicotine dependence, unspecified, uncomplicated; Z79.1 Long term (current) use of non-steroidal anti-inflammatories (NSAID); Z79.899 Other long term (current) drug therapy; Z88.5 Allergy status to narcotic agent; Z88.0 Allergy status to penicillin; Z88.6 Allergy status to analgesic agent; Z86.59 Personal history of other mental and behavioral disorders; Y90.8 Blood alcohol level of 240 mg/100 ml or more
CPT/HCPCS: 36415 ×2; 93005; 80053; 83690; 83735; 84484 ×2; 85025; 85610; 85730; 71046; 99285; 96374; G0480; J1170; 80320

== ENCOUNTER 2023-03-31 00:14 | Emergency (ER) | payer OTHER ==
[2023-03-31 00:44] VITALS: RESP 19; TEMP 97.9
[2023-03-31 01:09] LABS: Basophils # (A) 0.1 k/uL (0-0.2); Basophils % (A) 2 %; Eosinophils # (A) 0.1 k/uL (0-0.7); Eosinophils % (A) 2 %; HCT 45.4 % (39.0-53.0); HGB 15.4 gm/dL (13.0-17.5); Lymphocytes # (A) 3.1 k/uL (1.0-4.8); Lymphocytes % (A) 58 %; MCH 35.8 pg (25.0-35.0); MCV 105.4 fL (80.0-100.0); Macrocytosis Slight; Mean Platelet Volume 7.8; Monocytes # (A) 0.3 k/uL (0-1.0); Monocytes % (A) 6 %; Neutrophils # (A) 1.6 k/uL (1.3-7.7); Neutrophils % (A) 29 %; Platelet Count 161 k/uL (150-450); RBC 4.31 m/uL (4.30-5.90); RDW 12.9 % (11.5-15.5); WBC 5.4 k/uL (3.8-10.6)
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
[2023-03-31 01:15] LABS: ALT 64 U/L (4-49); AST 145 U/L (17-59); African American GFR (CKD) >90 (>60 ml/min/1.73 sqM); Albumin 4.5 g/dL (3.5-5.0); Alkaline Phosphatase 158 U/L (38-126); Anion Gap 10 mmol/L; Blood Urea Nitrogen 5 mg/dL (9-20); Calcium 8.7 mg/dL (8.4-10.2); Carbon Dioxide 26 mmol/L (22-30); Chloride 110 mmol/L (98-107); Glucose 94 mg/dL (74-99); Lipase 430 U/L (23-300); Non-African American GFR(CKD) >90 (>60 ml/min/1.73 sqM); Sodium 146 mmol/L (137-145); Total Bilirubin 0.6 mg/dL (0.2-1.3); Total Protein 7.4 g/dL (6.3-8.2)
--- NOTE | 2023-03-31 01:34 | XR ---
EXAM: XR Chest, 2 Views CLINICAL HISTORY: ITS.REASON XR Reason: chest pain TECHNIQUE: Frontal and lateral views of the chest. COMPARISON: No relevant prior studies available. FINDINGS: Lungs: Unremarkable. No consolidation. Pleural space: Unremarkable. No pneumothorax. Heart: Unremarkable. No cardiomegaly. Mediastinum: Unremarkable. Normal mediastinal contour. Bones/joints: Unremarkable. No acute fracture. IMPRESSION: Normal chest x-rays.
[2023-03-31 01:40] LABS: Alcohol 454 mg/dL
[2023-03-31] MEDS: METOCLOPRAMIDE 5 MG/ML 2 ML VIAL IVP STA (02:25)
[2023-03-31 02:57] VITALS: BP 120/87; PULSE 64
== END 2023-03-31 03:01 | disposition home or self-care (01) ==
LOC: EC 00:14
DX: R06.6 Hiccough (principal); I10 Essential (primary) hypertension; F41.9 Anxiety disorder, unspecified; F17.200 Nicotine dependence, unspecified, uncomplicated; Z79.899 Other long term (current) drug therapy; Z88.0 Allergy status to penicillin; Z88.5 Allergy status to narcotic agent; Z88.6 Allergy status to analgesic agent
CPT/HCPCS: 36415; 93005; 80053; 83690; 83735; 84484; 85025; 71046; 99285; 96374; G0480; J2765; 80320

== ENCOUNTER 2023-04-10 23:03 | Emergency (ER) | payer OTHER ==
[2023-04-10 23:41] VITALS: BP 151/87; PULSE 69; RESP 15; TEMP 97.5
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
[2023-04-11] MEDS: ACET/COD 300 MG/30 MG STARTER PACK 6 TAB BTL PO STA (00:17)
[2023-04-11] MEDS: AMOXIC-POT CLAV 875MG STARTER PACK 2 TAB BTL PO STA (00:17)
== END 2023-04-11 00:19 | disposition home or self-care (01) ==
LOC: EC 23:03
DX: K08.89 Other specified disorders of teeth and supporting structures (principal); I10 Essential (primary) hypertension; F17.200 Nicotine dependence, unspecified, uncomplicated; Z86.59 Personal history of other mental and behavioral disorders; Z88.5 Allergy status to narcotic agent; Z88.0 Allergy status to penicillin
CPT/HCPCS: 99282

== ENCOUNTER 2023-08-15 17:41 | Emergency (ER) | payer OTHER ==
[2023-08-15 17:50] VITALS: RESP 16; TEMP 97.9
--- NOTE | 2023-08-15 18:10 | XR ---
EXAMINATION TYPE: XR foot complete RT DATE OF EXAM: 08/15/2023 6:00 PM CLINICAL INDICATION:Male, 47 years old with history of fall injury; [facility] COMPARISON: None TECHNIQUE: XR foot complete RT examined in the AP, oblique, and lateral projections. FINDINGS: No evidence of any acute osseous pathology. No evidence of soft tissue swelling. IMPRESSION: No evidence of acute fracture.
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
[2023-08-15] MEDS: ACET/COD 300 MG/30 MG STARTER PACK 6 TAB BTL PO STA (19:24)
[2023-08-15 19:46] VITALS: BP 140/100; PULSE 93
== END 2023-08-15 19:40 | disposition home or self-care (01) ==
LOC: EC 17:41
DX: S92.351A Displaced fracture of fifth metatarsal bone, right foot, initial encounter for closed fracture (principal); F17.200 Nicotine dependence, unspecified, uncomplicated; Z88.0 Allergy status to penicillin; Z88.5 Allergy status to narcotic agent; Z88.6 Allergy status to analgesic agent; W19.XXXA Unspecified fall, initial encounter; Y92.000 Kitchen of unspecified non-institutional (private) residence as the place of occurrence of the external cause
CPT/HCPCS: 29515; 99284